=== PATIENT | male | born 1945 | race Caucasian/White ===

== ENCOUNTER 2021-12-04 14:02 | Emergency (ER) | payer MEDICARE, OTHER ==
[~2021-12-04] VITALS: Ht 182 cm; Wt 91.0 kg
[2021-12-04 14:30] LABS: BASOPHILS % (AUTO) 0 % (0-10); EOSINOPHILS # (AUTO) 0.2 10^3/uL (0.0-0.3); EOSINOPHILS % (AUTO) 2 % (0-10); HEMATOCRIT 41 % (40-54); HEMOGLOBIN 13.4 g/dL (13.3-17.7); LYMPHOCYTES # (AUTO) 1.1 10^3/uL (1.0-4.0); LYMPHOCYTES % (AUTO) 11 % (12-44); MEAN CORPUSCULAR HEMOGLOBIN 27 pg (25-34); MEAN CORPUSCULAR HGB CONC 33 g/dL (32-36); MEAN CORPUSCULAR VOLUME 84 fL (80-99); MEAN PLATELET VOLUME 8.9 fL (9.0-12.2); MONOCYTES # (AUTO) 0.7 10^3/uL (0.0-1.0); MONOCYTES % (AUTO) 8 % (0-12); NEUTROPHILS # (AUTO) 7.4 10^3/uL (1.8-7.8); NEUTROPHILS % (AUTO) 78 % (42-75); PLATELET COUNT 290 10^3/uL (130-400); WHITE BLOOD COUNT 9.4 10^3/uL (4.3-11.0)
[2021-12-04] MEDS ORDERED: RX-ALBUTEROL INHALER 8.5 GM HFA (PROAIR) IH STA (14:40)
[2021-12-04] MEDS ORDERED: RT-ALBUTEROL HFA 8.5 GM INHALER IH ONE (14:41)
[2021-12-04 14:42] LABS: ALBUMIN 4.3 GM/DL (3.2-4.5); POTASSIUM 4.3 MMOL/L (3.6-5.0)
[2021-12-04 14:44] LABS: CALCIUM 9.3 MG/DL (8.5-10.1)
[2021-12-04 14:45] LABS: FIBRIN DEGRADATION PRODUCTS 0.82 UG/ML (0.00-0.49); INR 0.9 (0.8-1.4); PROTHROMBIN TIME PATIENT 12.4 SEC (12.2-14.7)
[2021-12-04] MEDS ORDERED: RT-ALBUTEROL/IPRATROPIUM 3 ML (DUONEB) VIAL INH ONE (14:45)
[2021-12-04 14:47] LABS: BILIRUBIN,TOTAL 0.9 MG/DL (0.1-1.0)
[2021-12-04 14:48] LABS: CREATININE SERUM 0.76 MG/DL (0.60-1.30)
[2021-12-04 15:09] LABS: ABG BASE EXCESS 5.5 MMOL/L (-2.5-2.5); ABG OXYGEN SATURATION 71 % (94-100); ABG PCO2 60 MMHG (35-45); ABG PO2 40 MMHG (79-93)
[2021-12-04 15:10] LABS: ABG PH 7.34 (7.37-7.43)
[2021-12-04 15:11] LABS: ALLENS TEST YES-POS; INSPIRED O2 2L; PATIENT TEMP 36.8; VENTILATOR NO
--- NOTE | 2021-12-04 15:11 | ED Respiratory ---
General Chief Complaint: Respiratory Problems Stated Complaint: COVID EXP, SOB, COUGH, WEAKNESS Nursing Triage Note: PT TO RM 10 PER W/C PT CO OF SOA AND COUGH FOR APPROX 3 DAYS, DENIES FEVER. Source: patient Exam Limitations: no limitations History of Present Illness Date Seen by Provider: Dec 04, 2021 Time Seen by Provider: 14:05 Initial Comments Patient to the ER by private conveyance with shortness of air progressively worsening for the past 3 days. No fevers or chills. 3 days ago his granddaughter was diagnosed with COVID-19. He was in close contact with her. He has had a COVID-vaccine and 2 boosters. He has not had COVID-19 that he is aware of. He did not get tested at the time. He does wear oxygen to sleep at night as needed. He has a history of COPD and has had pulmonary function testing at [place]. Dr. Irby is his primary care provider and he sees Dr. Hairston for cardiology at [facility]. He is not having any chest pain. He has noticed a large mass on his left chest in the last week that is mobile, largely nontender and with no drainage or redness. Quit smoking 4 years ago. Quit drinking in 2019. The son is concerned about his father that he has dementia because he will wan bruce around into the kitchen and out again and if the son asks why he is going in and out of the kitchen he will say nothing and then stand there. He will also become agitated sometimes and he will and then go out and cry on the porch. He says the emotional lability has gotten worse since his several years ago. He also notes that the patient is mostly wearing CPAP and oxygen at night to sleep but has not been compliant with that for several years. He noted that when the patient stopped using that he started losing energy having worse depression and worse dementia. He has wanted to communicate this to Dr. Yovanny beck primary care provider but the patient has shot him out of going to primary care provider visits and will not share the content of their discussions. Allergies and Home Medications Allergies Coded Allergies: No Known Drug Allergies (Unverified , 12/04/21) Patient Home Medication List Home Medication List Reviewed: Yes Dexamethasone (Decadron) 6 Mg Tablet, 6 MG PO DAILY Prescribed by: SUHA MOREIRA on 12/04/21 1732 Review of Systems Review of Systems Constitutional: No chills, No fever EENTM: No ear discharge, No ear pain Respiratory: cough (dry); No phlegm; short of breath Cardiovascular: No chest pain, No palpitations Gastrointestinal: No abdominal pain, No nausea, No vomiting Genitourinary: No discharge, No dysuria Musculoskeletal: No back pain, No joint pain Skin: No pruritus, No rash All Other Systems Reviewed Negative Unless Noted: Yes Past Cjhxwnf-Btlsli-Cucpyk Hx Patient Social History Tobacco Use?: No Smoking Status: Former Smoker Substance use?: No Alcohol Use?: No Pt feels they are or have been: No Immunizations Up To Date First/Initial COVID19 Vaccinat: 2020 Second COVID19 Vaccination Alejo: 2019 COVID19 Vaccine Glass Breaker: GRADY Physical Exam Vital Signs - First Documented 12/04/21 14:05 Temp 36.8 Pulse 123 Resp 40 B/P (MAP) 175/92 (119) Pulse Ox 98 O2 Delivery Room Air O2 Flow Rate 3.00 Capillary Refill : Less Than 3 Seconds Height: '" Weight: lbs. oz. kg; 27.00 BMI Method: General Appearance: WD/WN, mild distress Eyes: Bilateral Eye Normal Inspection, Bilateral Eye PERRL, Bilateral Eye EOMI HEENT: normal ENT inspection, TMs normal, pharynx normal Neck: full range of motion, supple, normal inspection Respiratory: chest non-tender, no accessory muscle use, respiratory distress (90% on room air with pursed lip breathing. 25 breaths/min), decreased breath sounds, wheezing, expiration, other (There is a left anterior upper chest wall lateral to the nipple and superior soft rubbery nonfixed mobile mass that feels like adipose tissue. Its not firm and does not have any tight skin or erythema/induration overlying it. There is no central pore or evidence of folliculitis. It is nontender to manipulation and palpation.) Cardiovascular: normal peripheral pulses, no edema, tachycardia Gastrointestinal: non tender, soft Extremities: non-tender, normal inspection, normal capillary refill Neurologic/Psychiatric: alert, normal mood/affect, oriented x 3 Skin: normal color, warm/dry Progress/Results/Core Measures Suspected Sepsis SIRS Temperature: Pulse: 123 Respiratory Rate: 40 Laboratory Tests 12/04/21 14:20: White Blood Count 9.4 Blood Pressure 175 /92 Mean: 119 Laboratory Tests 12/04/21 14:20: Creatinine 0.76, INR Comment 0.9, Platelet Count 290, Total Bilirubin 0.9 Results/Orders Lab Results Laboratory Tests Test 12/04/21 14:08 12/04/21 14:20 12/04/21 15:00 Range/Units Influenza Type A (RT-PCR) Not Detected Not Detecte Influenza Type B (RT-PCR) Not Detected Not Detecte SARS-CoV-2 RNA (RT-PCR) Detected H Not Detecte White Blood Count 9.4 4.3-11.0 10^3/uL Red Blood Count 4.91 4.30-5.52 10^6/uL Hemoglobin 13.4 13.3-17.7 g/dL Hematocrit 41 40-54 % Mean Corpuscular Volume 84 80-99 fL Mean Corpuscular Hemoglobin 27 25-34 pg Mean Corpuscular Hemoglobin Concent 33 32-36 g/dL Red Cell Distribution Width 13.8 10.0-14.5 % Platelet Count 290 130-400 10^3/uL Mean Platelet Volume 8.9 L 9.0-12.2 fL Immature Granulocyte % (Auto) 1 % Neutrophils (%) (Auto) 78 H 42-75 % Lymphocytes (%) (Auto) 11 L 12-44 % Monocytes (%) (Auto) 8 0-12 % Eosinophils (%) (Auto) 2 0-10 % Basophils (%) (Auto) 0 0-10 % Neutrophils # (Auto) 7.4 1.8-7.8 10^3/uL Lymphocytes # (Auto) 1.1 1.0-4.0 10^3/uL Monocytes # (Auto) 0.7 0.0-1.0 10^3/uL Eosinophils # (Auto) 0.2 0.0-0.3 10^3/uL Basophils # (Auto) 0.0 0.0-0.1 10^3/uL Immature Granulocyte # (Auto) 0.1 0.0-0.1 10^3/uL Prothrombin Time 12.4 12.2-14.7 SEC INR Comment 0.9 0.8-1.4 D-Dimer 0.82 H 0.00-0.49 UG/ML Sodium Level 130 L 135-145 MMOL/L Potassium Level 4.3 3.6-5.0 MMOL/L Chloride Level 92 L 98-107 MMOL/L Carbon Dioxide Level 24 21-32 MMOL/L Anion Gap 14 5-14 MMOL/L Blood Urea Nitrogen 6 L 7-18 MG/DL Creatinine 0.76 0.60-1.30 MG/DL Estimat Glomerular Filtration Rate 93 BUN/Creatinine Ratio 8 Glucose Level 284 H 70-105 MG/DL Calcium Level 9.3 8.5-10.1 MG/DL Corrected Calcium 9.1 8.5-10.1 MG/DL Total Bilirubin 0.9 0.1-1.0 MG/DL Aspartate Amino Transf (AST/SGOT) 26 5-34 U/L Alanine Aminotransferase (ALT/SGPT) 48 0-55 U/L Alkaline Phosphatase 92 40-136 U/L C-Reactive Protein High Sensitivity 0.33 0.00-0.50 MG/DL Total Protein 8.0 6.4-8.2 GM/DL Albumin 4.3 3.2-4.5 GM/DL Procalcitonin 0.07 <0.10 NG/ML Blood Gas Puncture Site R RADIAL Blood Gas Patient Temperature 36.8 Arterial Blood pH 7.34 *L 7.37-7.43 Arterial Blood Partial Pressure CO2 60 H 35-45 MMHG Arterial Blood Partial Pressure O2 40 L 79-93 MMHG Arterial Blood HCO3 31 H 23-27 MMOL/L Arterial Blood Total CO2 33.0 H 21.0-31.0 MMOL/L Arterial Blood Oxygen Saturation 71 L 94-100 % Arterial Blood Base Excess 5.5 H -2.5-2.5 MMOL/L Chuck Test YES-POS Blood Gas Ventilator Setting NO Blood Gas Inspired Oxygen 2L My Orders Orders - SUHA MOREIRA 19 Inhouse Test (12/04/21 14:23) Influenza A And B By Pcr (12/04/21 14:23) Arterial Blood Gas (12/04/21 14:23) Cbc With Automated Diff (12/04/21 14:23) Comprehensive Metabolic Panel (12/04/21 14:23) Hs C Reactive Protein (12/04/21 14:23) Procalcitonin (Pct) (12/04/21 14:23) Fibrin Degradation Products (12/04/21 14:23) Protime With Inr (12/04/21 14:23) Chest 1 View, Ap/Pa Only (12/04/21 14:35) Dexamethasone Injection (Decadron Injec (12/04/21 14:45) Albuterol/Ipra Inhalation Soln (Duoneb I (12/04/21 14:45) Rx-Albuterol Inhaler (Rx-Ventolin Hfa In (12/04/21 14:40) Albuterol Inhaler (Albuterol) (12/04/21 14:41) Ct Angio Chest W (12/04/21 15:04) Ed Iv/Invasive Line Start (12/04/21 15:06) Ns Iv 1000 Ml (Sodium Chloride 0.9%) (12/04/21 15:15) Iohexol Injection (Omnipaque 350 Mg/Ml 1 (12/04/21 15:15) Received Contrast (Hold Metformin- Contr (12/04/21 15:15) Ns (Ivpb) (Sodium Chloride 0.9% Ivpb Bag (12/04/21 15:15) Sodium Chloride Flush (Catheter Flush Sy (12/04/21 15:15) Medications Given in ED Current Medications Medications Dose Ordered Sig/Daquan Route Start Time Stop Time Status Last Admin Dose Admin Albuterol Sulfate 8.5 gm STK-MED ONCE IH 12/04/21 14:41 12/04/21 14:43 DC 12/04/21 15:06 8.5 GM Dexamethasone Sodium Phosphate 6 mg ONCE ONCE IV 12/04/21 14:45 12/04/21 14:46 DC 12/04/21 15:19 6 MG Iohexol 100 ml ONCE ONCE IV 12/04/21 15:15 12/04/21 15:16 DC 12/04/21 16:06 77 ML Sodium Chloride 10 ml NEEDED PRN IV 12/04/21 15:15 12/04/21 16:07 10 ML Sodium Chloride 100 ml ONCE ONCE IV 12/04/21 15:15 12/04/21 15:16 DC 12/04/21 16:07 80 ML Vital Signs/I&O 12/04/21 12/04/21 14:05 15:08 Temp 36.8 Pulse 123 Resp 40 B/P (MAP) 175/92 (119) Pulse Ox 98 98 O2 Delivery Room Air Nasal Cannula O2 Flow Rate 3.00 2.00 Capillary Refill : Less Than 3 Seconds Blood Pressure Mean: 119 Progress Note #1: Time: 15:15 Progress Note Suspect he has COVID-19. The ABG demonstrates a venous or mixed blood sample and so we gave him a albuterol inhaler with spacer. Decadron 6 mg IV. 1 L of fluids and will get a CT angiogram to rule out PE as well as try and examine the mass on his chest wall which appears more consistent with a lipoma and the patient has just noticed it in the last couple days. He does not appear to be an abscess has no overlying erythema or central pore. Progress Note #2: Time: 17:27 Progress Note The patient is feeling better after breathing treatment and is no longer complaining of pursed lip breathing or shortness of breath. He has been resting comfortably on 2 L. We did offer him an opportunity to stay in the hospital overnight for his COVID-19 and new oxygen needs but he declined. He does not have oxygen available at home at this time. We did call [employer] [facility] and they will be happy to meet him at the house with an oxygen concentrator which should be fine. Patient is okay with this plan. We have already given him steroids and will continue Decadron 6 mg daily with return precautions. For the mass on his chest we have discussed having a surgeon biopsy and/or resect it. The patient is known to Dr. ENRIQUEZ and would like to follow-up with him. Progress Note #3: Time: 18:02 Progress Note We had a lengthy conversation with the son and patient was encouraged to stay in the hospital but does not necessarily need to and elected strongly not to stay in the hospital. The concerns of the son have been passed on through this note to the primary care provider. We also encouraged the son to look into a medical power of estate planning attorney in case the patient ends up in the hospital in the near future. We also discussed the importance of follow-up with Dr. ENRIQUEZ, general surgery for his chest wall mass. Questions were answered. Information was faxed to the [employer] and they will meet the patient at the house with a oxygen concentrator. Diagnostic Imaging Diagonstic Imaging: Xray Plain Films/CT/US/NM/MRI: chest Comments [facility] [place]. [place], [place] NAME: ROMERO QUIGLEYVIN [facility] REC#: [id number] PT STATUS: REG ER : 1945 PHYSICIAN: SUHA MOREIRA MD ADMIT DATE: 12/04/21/ER Draft Date of Exam:12/04/21 CHEST 1 VIEW, AP/PA ONLY INDICATION: Shortness of air, cough, Covid positive. TECHNIQUE: Single view chest 3:51 PM. CORRELATION STUDY: 06/16/2013 FINDINGS: The heart size, mediastinal configuration and pulmonary vascularity are within normal limits. Lung barrett slightly hyperinflated with hyperlucency at the apices. No consolidating infiltrate. IMPRESSION: 1. Chronic appearing changes of the lung parenchyma. Negative for acute cardiopulmonary abnormality. Dictated on workstation # [id number] Dict: 12/04/21 1606 Trans: 12/04/21 1607 DO [id number] Interpreted by: CHANDLER MO DO Electronically signed by: Reviewed: Reviewed by Me Diagonstic Imaging: CT Plain Films/CT/US/NM/MRI: chest (angio) Comments [facility] [place] [place] NAME: ANNABELLE QUIGLEY [facility] REC#: [id number] PT STATUS: REG ER : 1945 PHYSICIAN: SUHA MOREIRA MD ADMIT DATE: 12/04/21/ER Signed Date of Exam:12/04/21 CT ANGIO CHEST W PROCEDURE: CT angiography of the chest with contrast. TECHNIQUE: Multiple contiguous axial images were obtained through the chest after uneventful bolus administration of intravenous contrast. 3D reconstructed CTA MIP acquisitions were also performed. Auto Exposure Controls were utilized during the CT exam to meet ALARA standards for radiation dose reduction. INDICATION: 76-year-old male, shortness of air, COVID positive. CORRELATION STUDY: None FINDINGS: Only partially visualized, there is a large at least 6 cm mass over the left lateral chest/breast. A few prominent left axillary lymph nodes are also present. There is no large pulmonary embolism. There does appear to be asymmetric contrast density particularly in the left lower lobe and upper lobe peripheral branches. While somewhat indeterminate, is suspicious for smaller peripheral emboli. Heart size is within normal limits and no disproportionate right heart strain. No pericardial effusion. Thoracic aorta with mild calcification, nonaneurysmal. No evidence for dissection. No pathologically enlarged mediastinal lymph nodes. Mild soft tissue prominence in the left hilum, and to lesser degree, the right hilum. Lung barrett demonstrate no significant infiltrate. No pleural effusion. Visualized portion of the upper abdomen demonstrates probable hepatic steatosis. Indeterminate 3.7 x 2.5 cm right adrenal gland mass. Fairly low-density Hounsfield unit at 15.7. IMPRESSION: 1. No large central pulmonary embolism. However, there is suggested asymmetric contrast opacification of the more peripheral left pulmonary artery branches. While somewhat indeterminate, is suspect for potential smaller peripheral emboli. No disproportionate right heart strain. 2. No significant pulmonary infiltrate to suggest active COVID pneumonia. 3. Partially visualized left breast/chest mass. A few mildly prominent left axillary lymph nodes, as well. The possibility of neoplasm is definitely in the differential and should be excluded. 4. There is right adrenal gland mass, is of lower density and may very well reflect an adenoma, but is indeterminate. Dictated by: Dictated on workstation # [id number] Dict: 12/04/21 1608 Trans: 12/04/21 1705 [facility] [id number] Interpreted by: CHANDLER MO DO Electronically signed by: CHANDLER MO DO 12/04/21 1705 Reviewed: Reviewed by Me Departure Impression Primary Impression: COVID-19 Additional Impressions: Acute and chronic respiratory failure with hypoxia Chest wall mass Disposition: 01 HOME, SELF-CARE Condition: Stable Departure-Patient Inst. Decision time for Depature: 17:29 Referrals: ELDER ENRIQUEZ MD, DANIEL J MD (PCP/Family) Primary Care Physician Patient Instructions: COVID-19 (DC) Add. Discharge Instructions: Decadron 6 mg daily for the next 9 days to help with your COPD and COVID-19. Oxygen 2 L to 6 L by nasal cannula as necessary to maintain oxygen saturations above 90% while at rest. Return to the ER promptly if your oxygen saturations did not maintain above 90% while at rest on oxygen. Follow-up with Dr. ENRIQUEZ by calling for an appointment to have the mass on your chest wall biopsied or resected as appropriate. All discharge instructions reviewed with patient and/or family. Voiced understanding. Scripts Dexamethasone (Decadron) 6 Mg Tablet 6 MG PO DAILY for 9 Days, #9 TAB 0 Refills Prov: SUHA MOREIRA 12/04/21 Copy Copies To 1: ELDER ENRIQUEZ MD; STEPHANIE IRBY MD, TITUS J Dec 04, 2021 15:11
[2021-12-04] MEDS ORDERED: CATHETER FLUSH 10 ML SYR IV PRN (15:15)
[2021-12-04] MEDS ORDERED: IOHEXOL 350 MG/ML 100 ML (OMNIPAQUE 350) VIAL IV ONE (15:15)
[2021-12-04] MEDS ORDERED: NS 100 ML (IVPB) BAG IV ONE (15:15)
[2021-12-04] MEDS ORDERED: HOLD METFORMIN - RECEIVED CONTRAST 20 ML VIAL IV SCH (15:15)
[2021-12-04] MEDS ORDERED: NS IV 1000 ML 1,000 ML IV SCH (15:15)
--- NOTE | 2021-12-04 16:07 | Diagnostic Imaging Report ---
INDICATION: Shortness of air, cough, Covid positive. TECHNIQUE: Single view chest 3:51 PM. CORRELATION STUDY: 06/16/2013 FINDINGS: The heart size, mediastinal configuration and pulmonary vascularity are within normal limits. Lung barrett slightly hyperinflated with hyperlucency at the apices. No consolidating infiltrate. IMPRESSION: 1. Chronic appearing changes of the lung parenchyma. Negative for acute cardiopulmonary abnormality. Dictated by: Dictated on workstation # [id number]
--- NOTE | 2021-12-04 16:35 | Diagnostic Imaging Report ---
PROCEDURE: CT angiography of the chest with contrast. TECHNIQUE: Multiple contiguous axial images were obtained through the chest after uneventful bolus administration of intravenous contrast. 3D reconstructed CTA MIP acquisitions were also performed. Auto Exposure Controls were utilized during the CT exam to meet ALARA standards for radiation dose reduction. INDICATION: 76-year-old male, shortness of air, COVID positive. CORRELATION STUDY: None FINDINGS: Only partially visualized, there is a large at least 6 cm mass over the left lateral chest/breast. A few prominent left axillary lymph nodes are also present. There is no large pulmonary embolism. There does appear to be asymmetric contrast density particularly in the left lower lobe and upper lobe peripheral branches. While somewhat indeterminate, is suspicious for smaller peripheral emboli. Heart size is within normal limits and no disproportionate right heart strain. No pericardial effusion. Thoracic aorta with mild calcification, nonaneurysmal. No evidence for dissection. No pathologically enlarged mediastinal lymph nodes. Mild soft tissue prominence in the left hilum, and to lesser degree, the right hilum. Lung barrett demonstrate no significant infiltrate. No pleural effusion. Visualized portion of the upper abdomen demonstrates probable hepatic steatosis. Indeterminate 3.7 x 2.5 cm right adrenal gland mass. Fairly low-density Hounsfield unit at 15.7. IMPRESSION: 1. No large central pulmonary embolism. However, there is suggested asymmetric contrast opacification of the more peripheral left pulmonary artery branches. While somewhat indeterminate, is suspect for potential smaller peripheral emboli. No disproportionate right heart strain. 2. No significant pulmonary infiltrate to suggest active COVID pneumonia. 3. Partially visualized left breast/chest mass. A few mildly prominent left axillary lymph nodes, as well. The possibility of neoplasm is definitely in the differential and should be excluded. 4. There is right adrenal gland mass, is of lower density and may very well reflect an adenoma, but is indeterminate. Dictated by: Dictated on workstation # [id number]
[2021-12-04] MEDS ORDERED: DEXA6TAB6 PO (17:32)
[2021-12-04 18:15] VITALS: BP 147/67
== END 2021-12-04 18:15 | disposition home or self-care (01) ==
LOC: EDUNIT# 14:02 → ER 14:05
DX: U07.1 COVID-19 (principal); J96.11 Chronic respiratory failure with hypoxia; R22.2 Localized swelling, mass and lump, trunk; Z87.891 Personal history of nicotine dependence
CPT/HCPCS: 36415; 71045; 71275; 80053; 82805; 84145; 85025; 85379; 85610; 86141; 87636; 94640

== ENCOUNTER → 2022-01-08 | Outpatient (CLI) | payer MEDICARE, OTHER ==
[~2022-01-08] MED LIST: DEXA6TAB6 PO
--- NOTE | 2022-01-08 14:47 | Diagnostic Imaging Report ---
INDICATION: Left breast mass. COMPARISON: No prior studies are available for comparison. TECHNIQUE: Unilateral left 2D and 3D diagnostic mammography was performed. A BB marker was placed at the area of palpable abnormality in the upper outer left breast. FINDINGS: There is a large circumscribed mass in the upper outer left breast corresponding to the palpable abnormality. No other breast masses are seen. No malignant-appearing microcalcifications are identified. IMPRESSION: Large mass in the upper outer left breast at the area of palpable abnormality. Further evaluation with ultrasound is recommended and will be performed today. ACR BI-RADS Category 0: Incomplete. (Needs additional imaging evaluation). Result letter will be mailed to the patient. Note: At least 10% of breast cancer is not imaged by mammography. Dictated by: Dictated on workstation # [id number]
--- NOTE | 2022-01-08 15:31 | Diagnostic Imaging Report ---
INDICATION: Palpable mass in the left breast. COMPARISON: Correlation is made with the diagnostic mammogram from earlier this same day. FINDINGS: Sonographic interrogation of the area of palpable abnormality in the upper left breast was performed. There is a large solid mass at the 1 o'clock location 10 cm from the nipple measuring 6.7 x 5.5 x 6.8 cm. This does show internal vascularity. No other masses are seen. There is a fatty lymph node in the left axilla measuring 1.8 x 0.7 x 1.6 cm. IMPRESSION: Large solid mass at the 1 o'clock location of the left breast 10 cm from the nipple accounting for the palpable and mammographic abnormality. Tissue sampling is recommended. This would be amenable to ultrasound-guided core biopsy. ACR BI-RADS Category 4: Suspicious abnormality. Dictated by: Dictated on workstation # [id number]
== END ==
LOC: RAD 13:29
PROVIDERS: ATTEND Surgery
DX: N63.21 Unspecified lump in the left breast, upper outer quadrant (principal)
CPT/HCPCS: 76642; 77065; G0279

== ENCOUNTER → 2022-01-11 | Outpatient (CLI) | payer MEDICARE, OTHER ==
[~2022-01-11] VITALS: Ht 182.9 cm; Wt 90.9 kg
[2022-01-11] MEDS: LIDOCAINE 1% INJ 50 ML (XYLOCAINE) VIAL IJ ONE (14:34)
--- NOTE | 2022-01-11 16:24 | Diagnostic Imaging Report ---
INDICATION: Left breast mass. The patient presents for ultrasound-guided core biopsy. The patient was brought to the sonographic suite, placed on the table in the supine position. Ultrasound imaging of the left breast was performed to evaluate appropriate entry site. The left breast was then prepped and draped in the usual sterile fashion. A small amount of 1% lidocaine was utilized for local anesthesia. A total of 4 core biopsies were made of the large solid mass at the 1:00 location of the left breast utilizing a 14-gauge Achieve needle. Hemostasis was obtained. The patient tolerated the procedure well and left the department in stable condition. IMPRESSION: Successful ultrasound-guided core biopsy of the large solid mass in the upper outer left breast. Pathology results are currently pending. Dictated by: Dictated on workstation # [id number]
== END ==
LOC: RAD 14:30
PROVIDERS: ATTEND Surgery
DX: N63.23 Unspecified lump in the left breast, lower outer quadrant (principal)
CPT/HCPCS: 19083

== ENCOUNTER → 2022-02-02 | Outpatient (CLI) | payer MEDICARE, OTHER ==
[~2022-02-02] MED LIST changes: +CATHETER FLUSH 10 ML SYR IV PRN; +HOLD METFORMIN - RECEIVED CONTRAST 20 ML VIAL IV SCH; +IOHEXOL 350 MG/ML 100 ML (OMNIPAQUE 350) VIAL IV ONE; +NS 100 ML (IVPB) BAG IV ONE
[2022-02-02 09:05] LABS: HEMATOCRIT 35 % (40-54); HEMOGLOBIN 11.5 g/dL (13.3-17.7); MEAN CORPUSCULAR HEMOGLOBIN 28 pg (25-34); MEAN CORPUSCULAR HGB CONC 33 g/dL (32-36); MEAN CORPUSCULAR VOLUME 84 fL (80-99); MEAN PLATELET VOLUME 8.4 fL (9.0-12.2); PLATELET COUNT 455 10^3/uL (130-400); WHITE BLOOD COUNT 11.6 10^3/uL (4.3-11.0)
[2022-02-02 09:38] LABS: ALBUMIN 4.2 GM/DL (3.2-4.5); BILIRUBIN,TOTAL 0.9 MG/DL (0.1-1.0); CALCIUM 9.4 MG/DL (8.5-10.1); CREATININE SERUM 0.91 MG/DL (0.60-1.30); POTASSIUM 4.6 MMOL/L (3.6-5.0)
--- NOTE | 2022-02-02 10:41 | Diagnostic Imaging Report ---
PROCEDURE: CT head with and without contrast. TECHNIQUE: Multiple contiguous axial images were obtained through the brain before and after the administration of intravenous contrast. Auto Exposure Controls were utilized during the CT exam to meet ALARA standards for radiation dose reduction. INDICATION: Metastatic melanoma. COMPARISON: None. FINDINGS: The ventricles and cortical sulci are diffusely prominent, compatible with age-related volume loss. Postcontrast images show no abnormal areas of enhancement. There is no midline shift or mass-effect. No acute intra-axial hemorrhage is seen. There are no abnormal areas of increased or decreased density to suggest acute hemorrhage or edema. No extra-axial masses or collections are present. The bony calvarium is intact. The visualized paranasal sinuses are unremarkable. The mastoid air cells are clear. IMPRESSION: 1. No acute intracranial abnormality. No CT evidence of mass, acute infarct or intracranial hemorrhage. Dictated by: Dictated on workstation # [id number]
--- NOTE | 2022-02-02 13:46 | Diagnostic Imaging Report ---
CT [id number] W/ABD W WO INDICATION: Metastatic melanoma of the left breast COMPARISON: CT chest from 12/04/2021 TECHNIQUE: CT imaging of the neck, chest, abdomen and pelvis was performed. Automatic exposure controls were utilized to keep dose as low as reasonably achievable. FINDINGS: NECK: The airway is widely patent. The true and false vocal folds are normal in appearance. Thyroid, submandibular and parotid glands are normal, as well. No abnormal thickening of the epiglottis. The soft palate is unremarkable. No mass at the base of the tongue. Parapharyngeal fat spaces are normal. No retropharyngeal fluid collection. No cervical lymphadenopathy. No lytic or blastic skeletal lesion within the cervical spine, mandible or skull base. CHEST: There is now an air and fluid-filled collection in the left upper chest wall subcutaneous fat at the site of previously noted mass. This collection measures 6.2 x 5.2 cm and has rim enhancement. There are 2 left axillary lymph nodes that have mildly increased in size posterior to this mass. These each measure approximately 1 cm in size. No additional lymphadenopathy within the left chest wall. No right axillary lymphadenopathy. No mediastinal or hilar lymphadenopathy. The heart is normal in size and without pericardial effusion. Severe calcification of the aortic valve leaflets. Normal caliber thoracic aorta. No suspicious pulmonary nodules. No worrisome focal osseous lesions. ABDOMEN AND PELVIS: No free intraperitoneal air or fluid. There is diffuse hypoattenuation of the liver raising the possibility of hepatic steatosis. No focal hepatic lesion. Gallbladder, spleen and pancreas are normal. Stable low-attenuation 3.6 x 2.0 cm nodule that remains indeterminate, but most likely adenoma. Left adrenal gland is normal. No solid renal mass or obstructive uropathy. Urinary bladder is normal. Prostate is not enlarged. Colonic diverticulosis without diverticulitis. Severe atherosclerotic plaquing throughout the aorta. No worrisome focal osseous lesions. IMPRESSION: 1. There is now an air and fluid-filled collection in the left chest wall at the site of previously noted mass. This may represent postoperative seroma. The sterility cannot be determined with imaging and if there is concern for infection, aspiration would be suggested. 2. Two left axillary lymph nodes posterior to the mass, mildly increased in size and are most likely reactive in nature due to recent surgical changes. Less likely these could represent regional metastasis. 3. Stable right adrenal mass is most likely adenoma. Advise either an imaging workup with either CT or MRI abdomen, either of which would require pre and postcontrast imaging with the adrenal protocol. 4. Otherwise, there are no features of metastatic disease in the neck, chest, abdomen or pelvis. 5. Aortic valve calcifications are frequently seen in the setting of aortic stenosis. Dictated by: Dictated on workstation # [id number]
== END ==
LOC: RAD 08:51
PROVIDERS: ATTEND Surgery
DX: C50.922 Malignant neoplasm of unspecified site of left male breast (principal); E27.9 Disorder of adrenal gland, unspecified; I70.0 Atherosclerosis of aorta; Z98.890 Other specified postprocedural states
CPT/HCPCS: 36415; 70470; 70491; 71260; 74178; 80053; 85027

== ENCOUNTER 2022-02-06 12:08 | Outpatient (RCR) | payer MEDICARE, OTHER ==
[~2022-02-06 12:08] MED LIST changes: -CATHETER FLUSH 10 ML SYR IV PRN; -HOLD METFORMIN - RECEIVED CONTRAST 20 ML VIAL IV SCH; -IOHEXOL 350 MG/ML 100 ML (OMNIPAQUE 350) VIAL IV ONE; -NS 100 ML (IVPB) BAG IV ONE
== END 2022-03-02 | disposition home or self-care (01) ==
LOC: ONC 12:08
PROVIDERS: ATTEND Internal Medicine Hematology & Oncology
DX: C76.1 Malignant neoplasm of thorax (principal)
CPT/HCPCS: 99204

== ENCOUNTER → 2022-03-05 | Outpatient (CLI) | payer MEDICARE, OTHER ==
--- NOTE | 2022-03-06 14:24 | Diagnostic Imaging Report ---
INDICATION: Metastatic melanoma on the left upper chest, initial staging. TECHNIQUE: Serum blood glucose level at the time of injection was 175 mg/dL. Patient was administered 14.6 mCi F-18 FDG intravenously, and a whole body PET imaging was performed. In addition, noncontrast CT was performed for attenuation correction and anatomic correlation. COMPARISON: Correlation is made with recent CT from 02/02/2022. FINDINGS: There is symmetric activity throughout the brain. Soft tissues of the neck are unremarkable. A 6.8 cm soft tissue mass in the left chest is again noted and was recently biopsied. This shows SUV max of approximately 17. Just cephalad to this level and near the chest wall is a 2.1 x 1.4 cm lymph node with an SUV max of 5.5, likely metastatic. No mediastinal or hilar hypermetabolic foci are identified. No pulmonary parenchymal hypermetabolic foci are seen. The abdomen and pelvis demonstrate physiologic activity throughout the GI and tracts. No suspicious metabolic foci are seen. There is a hypermetabolic focus noted in the distal left femur with an SUV max of 12.7, concerning for a metastatic lesion. No other hypermetabolic foci in the lower extremities are seen. IMPRESSION: 1. Hypermetabolic soft tissue mass on the left chest wall corresponding to patient's known recently diagnosed melanoma. There does appear to be an adjacent metastatic lymph node. In addition, there appears to be a metastatic lesion in the distal left femur. Dictated by: Dictated on workstation # [id number]
== END ==
LOC: RAD 02-26 12:45
PROVIDERS: ATTEND Internal Medicine Hematology & Oncology
DX: C76.1 Malignant neoplasm of thorax (principal)
CPT/HCPCS: 78816; A9552

== ENCOUNTER 2022-03-15 09:52 | Outpatient (CLI) | payer MEDICARE, OTHER ==
[~2022-03-15] VITALS: Ht 182.8 cm; Wt 88.3 kg
[~2022-03-15 09:52] MED LIST changes: -ASPI-999 PO; -ATOR20TA49 PO; -GADOTERATE 0.5 MMOL/ML (CLARISCAN) 20 ML VIAL IV ONE; -LISI10TA25 PO; -METF-399 PO; -TMSL.4C PO
[2022-03-15] MEDS ORDERED: ATOR20TA49 PO (10:32)
[2022-03-15] MEDS ORDERED: LISI10TA25 PO (10:32)
[2022-03-15] MEDS ORDERED: ASPI-999 PO (10:32)
[2022-03-15] MEDS ORDERED: METF-399 PO (10:32)
[2022-03-15] MEDS ORDERED: TMSL.4C PO (10:32)
== END 2022-03-15 11:03 | disposition home or self-care (01) ==
LOC: PREOP 09:52
PROVIDERS: ATTEND Surgery
DX: Z01.818 Encounter for other preprocedural examination (principal)

== ENCOUNTER → 2022-03-15 | Outpatient (CLI) | payer MEDICARE, OTHER ==
[~2022-03-15] MED LIST changes: +ASPI-999 PO; +ATOR20TA49 PO; +GADOTERATE 0.5 MMOL/ML (CLARISCAN) 20 ML VIAL IV ONE; +LISI10TA25 PO; +METF-399 PO; +TMSL.4C PO
--- NOTE | 2022-03-15 15:13 | Diagnostic Imaging Report ---
PROCEDURE: MR imaging of the brain with and without contrast. TECHNIQUE: Multiplanar, multisequence MR imaging of the brain was performed with and without contrast. INDICATION: Malignant melanoma of the chest wall. Clinical concern for intracranial metastases. COMPARISON: CT head without and with IV contrast 02/02/2022. FINDINGS: Mild nonspecific T2 hyperintensities in the supratentorial white matter. No abnormal intracranial enhancement allowing for the motion artifact. No restricted water diffusion. No hemosiderin deposition or evidence of intracranial hemorrhage. Normal morphology including the major midline structures, sella, posterior fossa, and cerebellopontine angle. Normal intracranial flow voids. No hydrocephalus or extra-axial fluid collections. The orbits are negative. Paranasal sinuses and mastoids are clear. Normal bone marrow signal. IMPRESSION: Age-appropriate MRI of the brain. No acute findings. No evidence of acute infarction or hemorrhage. No evidence of an intracranial mass. Dictated by: Dictated on workstation # [id number]
== END ==
LOC: RAD 13:17
PROVIDERS: ATTEND Internal Medicine Hematology & Oncology
DX: C76.1 Malignant neoplasm of thorax (principal)
CPT/HCPCS: 70553

== ENCOUNTER 2022-03-16 10:20 | Day surgery (SDC) | payer MEDICARE, OTHER ==
[~2022-03-16] VITALS: Ht 182.8 cm; Wt 88.3 kg
[2022-03-16] VITALS (7 sets, daily range): BP systolic 130–160; BP diastolic 51–83
[~2022-03-16 10:20] MED LIST changes: +ASPI-999 PO; +ATOR20TA49 PO; +LISI10TA25 PO; +METF-399 PO; +TMSL.4C PO
[2022-03-16] MEDS ORDERED: 0.9% SODIUM CHLORIDE PF INJ 20 ML VIAL ONE ×2 (10:26→11:48)
[2022-03-16] MEDS ORDERED: HEParin (CENTRAL IV FLUSH) 500 UNIT/5 ML SYR ONE (10:27)
[2022-03-16] MEDS ORDERED: fentaNYL INJ 100 MCG/2 ML AMP ONE (10:38)
[2022-03-16] MEDS ORDERED: PROPOFOL INJECTION 50 ML IV ONE (10:38)
[2022-03-16] MEDS ORDERED: LIDOCAINE/EPI 2% 1:200,00 (XYLOCAINE) 10 ML VIAL ONE (10:43)
[2022-03-16] MEDS ORDERED: LACTATED RINGERS 1,000 ML IV PRN (10:45)
[2022-03-16] MEDS ORDERED: ceFAZolin INJECTION 2,000 MG in NS (IVPB) 50 ML IV ONE (10:45)
--- NOTE | 2022-03-16 12:06 | Anesthesia-General Post-Op ---
MAC Patient Condition Mental Status/LOC: Same as Preop Cardiovascular: Satisfactory Nausea/Vomiting: Absent Respiratory: Satisfactory Pain: Controlled Complications: Absent Post Op Complications Complications None Follow Up Care/Instructions Patient Instructions None needed. Anesthesiology Discharge Order Discharge Order Patient is doing well, no complaints, stable vital signs, no apparent adverse anesthesia problems. No complications reported per nursing. KUN RODGERS CRNA Mar 16, 2022 12:06
[2022-03-16] MEDS ORDERED: HYDROmorphone 2 MG/ML VIAL (DILAUDID) IV ONE (12:15)
[2022-03-16] MEDS ORDERED: ONDANSETRON 4 MG/2 ML (SDV) Z0FRAN IVP PRN (12:15)
--- NOTE | 2022-03-16 12:28 | Diagnostic Imaging Report ---
INDICATION: POST OP PORT PLACEMENT. TECHNIQUE: Single view chest 12:04 PM. CORRELATION STUDY: 12/04/2021 FINDINGS: Heart size enlarged and may be accentuated by patient positioning. Vasculature overall within normal limits. Right IJ Enmkwv-o-Iqrn catheter, partially visualized tip at the high right atrium has been placed since prior. Left diaphragm partially obscured may be a small amount of fluid. No definitive infiltrate. Lung barrett are otherwise hyperinflated. IMPRESSION: 1. Cardiac enlargement may be accentuated by technique. Probable small left pleural effusion. Dictated by: Dictated on workstation # [id number]
--- NOTE | 2022-03-16 12:33 | Diagnostic Imaging Report ---
INDICATION: Internal jugular line placement. COMPARISON: None Total fluoroscopy time: 10 seconds Total number fluoroscopic images saved: 1 FINDINGS: Single intraoperative image intensifier view of the chest was obtained during Port-A-Cath placement. Image provided shows central tip of the catheter extending into the cavoatrial junction. Evaluation for pneumothorax is suboptimal given fluoroscopic modality. IMPRESSION: 1. Fluoroscopic guidance provided intraoperatively as above. Dictated by: Dictated on workstation # [id number]
--- NOTE | 2022-03-16 13:15 | Progress Note-Pre Operative ---
Pre-Operative Progress Note Date of Available H&P: Mar 16, 2022 Date H&P Reviewed: Mar 16, 2022 Time H&P Reviewed: 10:30 History & Physical: No changes noted Pre-Operative Diagnosis: metastatic melanoma ELDER ENRIQUEZ MD Mar 16, 2022 13:15
--- NOTE | 2022-03-16 13:16 | Progress Note-Post Operative ---
Post-Operative Progess Note Surgeon (s)/Co Teacher (s) Surgeon ELDER ENRIQUEZ MD Co Teacher: none Pre-Operative Diagnosis metastatic melanoma Post-Operative Diagnosis same Procedure & Operative Findings Date of Procedure 03/16/22 Procedure Performed/Findings placement right internal jugular groshong implantable catheter. Anesthesia Type mac Estimated Blood Loss Estimated blood loss (mL): minimal Specimens/Packing Specimens Removed none ELDER ENRIQUEZ MD Mar 16, 2022 13:16
--- NOTE | 2022-03-16 16:55 | OPERATIVE REPORT ---
DATE OF SERVICE: 03/16/2022 ATTENDING PRIMARY CARE PHYSICIAN: Raghav Owusu MD. PREOPERATIVE DIAGNOSIS: Metastatic melanoma. POSTOPERATIVE DIAGNOSIS: Metastatic melanoma. PROCEDURE PERFORMED: Placement of right internal jugular Groshong implantable catheter under fluoroscopy. SURGEON: Elder Enriquez MD. ANESTHESIA: Monitored anesthesia care with local. ESTIMATED BLOOD LOSS: Minimal. FINDINGS: Catheter tip at superior vena caval - right atrial junction. DISPOSITION: The patient tolerated the procedure well. INDICATIONS FOR PROCEDURE: The patient is a 76-year-old male, who developed a lesion of the left upper chest wall, which he states grew significantly larger in size over a short period of time. This was examined in the office, well circumscribed, large as well as hard in consistency. This was biopsied in the office and came back consistent with a metastatic melanoma. He then underwent further evaluation with a PET scan, which did show hypermetabolic activities of the left axillary lymph nodes; however, no other lesions identified. The patient did opt for immunotherapy and will require a central venous catheter for therapeutic medications as well as frequent blood draws. DESCRIPTION OF PROCEDURE: The patient was brought to the operating room and laid supine on the table. After adequate IV pain and sedative medications and monitored anesthesia care, the right chest and neck were prepped and draped in standard surgical fashion. Multiple attempts were made to access the left subclavian vein; however, it appeared that we had arterial blood. We then decided to proceed with the internal jugular venous approach, where the neck was anesthetized using 1% lidocaine with epinephrine. The right internal jugular vein was then cannulated with drawing of venous blood and the guidewire was then inserted without any resistance under fluoroscopy. The cannulating needle was removed and a skin incision was made using a 15 blade. The guidewire and dilator were then removed and the catheter was placed through the trocar under direct visualization until the catheter tip at superior vena caval - right atrial junction and the sheath removed. The subcutaneous reservoir was then created using a #15 blade as well as creating a plane between the subcutaneous fat and anterior pectoralis fascia using blunt dissection as well as electrocautery with visualization of good hemostasis. The catheter was then placed onto the tunneler and placed to this reservoir and the inner wire within the catheter was removed, the catheter cut down to size and port placed onto the catheter. The port was accessed, drawing of venous blood and heparinized saline pushed in without any resistance. The port was placed into the reservoir and sutured to the anterior pectoralis fascia using interrupted 3-0 Vicryl sutures. The skin was then reapproximated with 3-0 Vicryl interrupted sutures and skin was closed using 4-0 Monocryl running subcuticular suture. Wound was then cleaned and covered with Dermabond. The patient tolerated the procedure well. We will get a post procedure chest x-ray once confirmation of placement of the port may be accessed and used any time. Job ID: [id number] DocumentID: [id number] Dictated Date: 03/16/2022 12:04:47 Aids Counselor Date: 03/16/2022 16:54:57 Dictated By: ELDER ENRIQUEZ MD
== END 2022-03-16 13:07 ==
LOC: SDC 10:20
PROVIDERS: ATTEND Surgery
DX: C43.59 Malignant melanoma of other part of trunk (principal); Z87.891 Personal history of nicotine dependence
CPT/HCPCS: 36561; 71045; 76000; 82947; 87081; C1788

== ENCOUNTER 2022-03-30 11:18 | Outpatient (RCR) | payer MEDICARE, OTHER ==
[2022-03-13 12:29] LABS: BASOPHILS % (AUTO) 0 % (0-10); EOSINOPHILS # (AUTO) 0.2 10^3/uL (0.0-0.3); EOSINOPHILS % (AUTO) 2 % (0-10); HEMATOCRIT 33 % (40-54); HEMOGLOBIN 10.1 g/dL (13.3-17.7); LYMPHOCYTES # (AUTO) 2.1 10^3/uL (1.0-4.0); LYMPHOCYTES % (AUTO) 19 % (12-44); MEAN CORPUSCULAR HEMOGLOBIN 26 pg (25-34); MEAN CORPUSCULAR HGB CONC 31 g/dL (32-36); MEAN CORPUSCULAR VOLUME 84 fL (80-99); MEAN PLATELET VOLUME 8.5 fL (9.0-12.2); MONOCYTES # (AUTO) 0.8 10^3/uL (0.0-1.0); MONOCYTES % (AUTO) 8 % (0-12); NEUTROPHILS # (AUTO) 7.9 10^3/uL (1.8-7.8); NEUTROPHILS % (AUTO) 71 % (42-75); PLATELET COUNT 398 10^3/uL (130-400)
[2022-03-13 12:57] LABS: ALBUMIN 3.9 GM/DL (3.2-4.5); BILIRUBIN,TOTAL 0.9 MG/DL (0.1-1.0); CALCIUM 9.5 MG/DL (8.5-10.1); CREATININE SERUM 0.7 MG/DL (0.60-1.30); POTASSIUM 4.6 MMOL/L (3.6-5.0); TOTAL PROTEIN 7.6 GM/DL (6.4-8.2)
[2022-03-26 10:36] LABS: BASOPHILS % (AUTO) 0 % (0-10); EOSINOPHILS # (AUTO) 0.2 10^3/uL (0.0-0.3); EOSINOPHILS % (AUTO) 1 % (0-10); HEMATOCRIT 28 % (40-54); HEMOGLOBIN 8.7 g/dL (13.3-17.7); LYMPHOCYTES # (AUTO) 1.6 10^3/uL (1.0-4.0); LYMPHOCYTES % (AUTO) 14 % (12-44); MEAN CORPUSCULAR HEMOGLOBIN 25 pg (25-34); MEAN CORPUSCULAR HGB CONC 31 g/dL (32-36); MEAN CORPUSCULAR VOLUME 81 fL (80-99); MEAN PLATELET VOLUME 8.6 fL (9.0-12.2); MONOCYTES % (AUTO) 9 % (0-12); NEUTROPHILS # (AUTO) 8.4 10^3/uL (1.8-7.8); NEUTROPHILS % (AUTO) 75 % (42-75); PLATELET COUNT 397 10^3/uL (130-400); WHITE BLOOD COUNT 11.2 10^3/uL (4.3-11.0)
[2022-03-26 10:43] LABS: ALBUMIN 3.9 GM/DL (3.2-4.5); POTASSIUM 4.8 MMOL/L (3.6-5.0)
[2022-03-26 10:45] LABS: TOTAL PROTEIN 7.6 GM/DL (6.4-8.2)
[2022-03-26 10:49] LABS: CREATININE SERUM 0.78 MG/DL (0.60-1.30)
--- NOTE | 2022-03-26 11:35 | Diagnostic Imaging Report ---
INDICATION: Port-A-Cath not working. TIME OF EXAM: 11:04 a.m. COMPARISON: Correlation is made with prior chest from 03/16/2022. FINDINGS: Right chest wall port has tip overlying the SVC. There is slight looping in the port likely near the entry site of the low internal jugular. No definite interruption of the tubing is seen. Lungs show some hyperinflation consistent with COPD. No infiltrates are seen. There is no effusion or pneumothorax. IMPRESSION: There is some slight acute loop near the entry site of the low internal jugular vein of the Port-A-Cath, but no definite interruption of the tubing or fracture is seen. Dictated by: Dictated on workstation # [id number]
[~2022-03-30] VITALS: Ht 182.9 cm; Wt 88.0 kg
[~2022-03-30 11:18] MED LIST changes: +HEParin (CENTRAL IV FLUSH) 500 UNIT/5 ML SYR IV PRN; +NS (IVPB) 250 ML IV SCH; +PEMBROLIZUMAB 200 MG in NS (IVPB) 50 ML IV SCH
== END 2022-04-02 | disposition home or self-care (01) ==
LOC: ONC 11:18
PROVIDERS: ATTEND Internal Medicine Hematology & Oncology
DX: Z51.11 Encounter for antineoplastic chemotherapy (principal); C76.1 Malignant neoplasm of thorax; Z79.899 Other long term (current) drug therapy
CPT/HCPCS: 80053; 83615; 84443; 85025; G0463; 36415; 36591; 71045; 83935; 84300; 96413; 99213

== ENCOUNTER 2022-04-23 08:12 | Outpatient (RCR) | payer MEDICARE, OTHER ==
[2022-04-18 10:26] LABS: BASOPHILS # (AUTO) 0.1 10^3/uL (0.0-0.1); BASOPHILS % (AUTO) 1 % (0-10); EOSINOPHILS # (AUTO) 0.2 10^3/uL (0.0-0.3); EOSINOPHILS % (AUTO) 1 % (0-10); HEMATOCRIT 26 % (40-54); HEMOGLOBIN 7.4 g/dL (13.3-17.7); LYMPHOCYTES # (AUTO) 1.7 10^3/uL (1.0-4.0); LYMPHOCYTES % (AUTO) 13 % (12-44); MEAN CORPUSCULAR HEMOGLOBIN 23 pg (25-34); MEAN CORPUSCULAR HGB CONC 29 g/dL (32-36); MEAN CORPUSCULAR VOLUME 79 fL (80-99); MEAN PLATELET VOLUME 8.9 fL (9.0-12.2); MONOCYTES % (AUTO) 7 % (0-12); NEUTROPHILS # (AUTO) 10.2 10^3/uL (1.8-7.8); NEUTROPHILS % (AUTO) 77 % (42-75); PLATELET COUNT 393 10^3/uL (130-400); WHITE BLOOD COUNT 13.2 10^3/uL (4.3-11.0)
[2022-04-18 10:45] LABS: ALBUMIN 3.6 GM/DL (3.2-4.5); BILIRUBIN,TOTAL 0.5 MG/DL (0.1-1.0); CALCIUM 8.8 MG/DL (8.5-10.1); CREATININE SERUM 0.66 MG/DL (0.60-1.30); POTASSIUM 4.5 MMOL/L (3.6-5.0); TOTAL PROTEIN 6.8 GM/DL (6.4-8.2)
== END 2022-05-02 | disposition home or self-care (01) ==
LOC: ONC 08:12
PROVIDERS: ATTEND Internal Medicine Hematology & Oncology
DX: Z51.11 Encounter for antineoplastic chemotherapy (principal); Z45.2 Encounter for adjustment and management of vascular access device; C76.1 Malignant neoplasm of thorax
CPT/HCPCS: 80053; 85025; 96413; G0463; 36591; 82024; 82533; 84443

== ENCOUNTER 2022-05-14 12:48 | Outpatient (RCR) | payer MEDICARE, OTHER ==
[2022-05-09 09:52] LABS: BASOPHILS # (AUTO) 0.1 10^3/uL (0.0-0.1); BASOPHILS % (AUTO) 1 % (0-10); EOSINOPHILS # (AUTO) 0.2 10^3/uL (0.0-0.3); EOSINOPHILS % (AUTO) 1 % (0-10); HEMATOCRIT 22 % (40-54); LYMPHOCYTES # (AUTO) 1.6 10^3/uL (1.0-4.0); LYMPHOCYTES % (AUTO) 11 % (12-44); MEAN CORPUSCULAR HEMOGLOBIN 21 pg (25-34); MEAN CORPUSCULAR HGB CONC 28 g/dL (32-36); MEAN CORPUSCULAR VOLUME 73 fL (80-99); MEAN PLATELET VOLUME 8.8 fL (9.0-12.2); MONOCYTES # (AUTO) 0.9 10^3/uL (0.0-1.0); MONOCYTES % (AUTO) 6 % (0-12); NEUTROPHILS % (AUTO) 81 % (42-75); PLATELET COUNT 444 10^3/uL (130-400); WHITE BLOOD COUNT 14.9 10^3/uL (4.3-11.0)
[2022-05-09 09:57] LABS: RETICULOCYTE % 2.42 % (0.50-2.40)
[2022-05-09 10:08] LABS: HEMOGLOBIN 6.3 g/dL (13.3-17.7)
[2022-05-09 10:33] LABS: ALBUMIN 3.7 GM/DL (3.2-4.5); BILIRUBIN,TOTAL 0.6 MG/DL (0.1-1.0); CALCIUM 8.6 MG/DL (8.5-10.1); CREATININE SERUM 0.65 MG/DL (0.60-1.30); POTASSIUM 4.4 MMOL/L (3.6-5.0); TOTAL PROTEIN 6.7 GM/DL (6.4-8.2)
[~2022-05-14 12:48] MED LIST changes: +NS IV 500 ML 500 ML IV ONE
[2022-05-14 13:32] LABS: BASOPHILS % (AUTO) 0 % (0-10); EOSINOPHILS # (AUTO) 0.2 10^3/uL (0.0-0.3); EOSINOPHILS % (AUTO) 2 % (0-10); HEMATOCRIT 26 % (40-54); HEMOGLOBIN 7.5 g/dL (13.3-17.7); LYMPHOCYTES # (AUTO) 1.6 10^3/uL (1.0-4.0); LYMPHOCYTES % (AUTO) 11 % (12-44); MEAN CORPUSCULAR HEMOGLOBIN 22 pg (25-34); MEAN CORPUSCULAR HGB CONC 29 g/dL (32-36); MEAN CORPUSCULAR VOLUME 77 fL (80-99); MEAN PLATELET VOLUME 8.9 fL (9.0-12.2); MONOCYTES # (AUTO) 1.3 10^3/uL (0.0-1.0); MONOCYTES % (AUTO) 9 % (0-12); NEUTROPHILS % (AUTO) 77 % (42-75); PLATELET COUNT 397 10^3/uL (130-400); WHITE BLOOD COUNT 14.2 10^3/uL (4.3-11.0)
[2022-05-18] MEDS ORDERED: INSU100I10 SC (16:10)
[2022-05-18] MEDS ORDERED: ASPI-1238 PO (16:10)
[2022-05-18] MEDS ORDERED: ATOR40TA70 PO (16:10)
[2022-05-18] MEDS ORDERED: FERR325T24 PO (16:10)
== END 2022-05-24 | disposition home or self-care (01) ==
LOC: ONC 12:48
PROVIDERS: ATTEND Internal Medicine Hematology & Oncology
DX: Z51.11 Encounter for antineoplastic chemotherapy (principal); C43.59 Malignant melanoma of other part of trunk; D64.9 Anemia, unspecified
CPT/HCPCS: 36430; 80053; 82607; 82728; 82746; 83540; 83550; 83615; 85025; 85045; 86850; 86900; 86901; 86920; 96413; G0463; P9016; 36415; 36591; 84443

== ENCOUNTER 2022-05-17 10:49 | Inpatient (IN) | payer MEDICARE, OTHER ==
[~2022-05-17] VITALS: Ht 182.9 cm; Wt 108.4 kg
[~2022-05-17 10:49] MED LIST changes: -HEParin (CENTRAL IV FLUSH) 500 UNIT/5 ML SYR IV PRN; -NS (IVPB) 250 ML IV SCH; -NS IV 500 ML 500 ML IV ONE; -PEMBROLIZUMAB 200 MG in NS (IVPB) 50 ML IV SCH
[2022-05-17 11:38] LABS: BASOPHILS % (AUTO) 0 % (0-10); EOSINOPHILS % (AUTO) 0 % (0-10); HEMATOCRIT 24 % (40-54); LYMPHOCYTES # (AUTO) 1.3 10^3/uL (1.0-4.0); LYMPHOCYTES % (AUTO) 6 % (12-44); MEAN CORPUSCULAR HEMOGLOBIN 21 pg (25-34); MEAN CORPUSCULAR HGB CONC 28 g/dL (32-36); MEAN CORPUSCULAR VOLUME 75 fL (80-99); MEAN PLATELET VOLUME 9.9 fL (9.0-12.2); MONOCYTES # (AUTO) 1.3 10^3/uL (0.0-1.0); MONOCYTES % (AUTO) 6 % (0-12); NEUTROPHILS # (AUTO) 18.2 10^3/uL (1.8-7.8); NEUTROPHILS % (AUTO) 86 % (42-75); PLATELET COUNT 436 10^3/uL (130-400); WHITE BLOOD COUNT 21.1 10^3/uL (4.3-11.0)
[2022-05-17 11:41] LABS: ALBUMIN 3.6 GM/DL (3.2-4.5)
[2022-05-17 11:42] LABS: POTASSIUM 4.9 MMOL/L (3.6-5.0)
[2022-05-17 11:43] LABS: CALCIUM 8.4 MG/DL (8.5-10.1)
[2022-05-17 11:44] LABS: TOTAL PROTEIN 6.8 GM/DL (6.4-8.2)
[2022-05-17 11:48] LABS: CREATININE SERUM 1.28 MG/DL (0.60-1.30)
[2022-05-17 11:51] LABS: MAGNESIUM 1.7 MG/DL (1.6-2.4)
[2022-05-17 11:55] LABS: HEMOGLOBIN 6.7 g/dL (13.3-17.7)
[2022-05-17 12:04] LABS: BAND NEUTROPHILS 8 %; BASOPHILS % (MANUAL) 0 %; EOSINOPHILS % (MANUAL) 0 %; LYMPHOCYTES % (MANUAL) 11 %; MONOCYTES % (MANUAL) 11 %; MYELOCYTES % 1 %; NEUTROPHILS % (MANUAL) 69 %
[2022-05-17 12:05] LABS: ANISOCYTOSIS SLIGHT; ELLIPT/OVALOCYTES SLIGHT; HYPOCHROMASIA SLIGHT; NUCLEATED RED BLOOD CELLS 1
--- NOTE | 2022-05-17 12:06 | ED Respiratory ---
General Chief Complaint: Respiratory Problems Stated Complaint: SOB Nursing Triage Note: PT TO [facility] BY [facility] FROM HOME WITH C/O SOB X3 DAYS, FALL LAST NIGHT AND THIS MORNING BUT DOESNT REMEMBER FALLING EITHER TIME. PT ALSO STATES HE HAS HAD A FEVER AND COUGH Source: patient Exam Limitations: no limitations History of Present Illness Date Seen by Provider: May 17, 2022 Time Seen by Provider: 11:15 Initial Comments Patient is a 76-year-old male to the emergency department via EMS with shortness of air x3 days. Patient also reportedly had a fall last night as well as this morning. He does not remember falling. States she has had intermittent fever as well as productive cough. He also states that he has had several days of increased general weakness. States he has had difficulty getting up and ambulating. He is currently undergoing treatment for skin cancer. No new medicines in the recent past. Denies chest pain or any other pain at this time. Allergies and Home Medications Allergies Coded Allergies: No Known Drug Allergies (Unverified , 03/15/22) Patient Home Medication List Home Medication List Reviewed: Yes Aspirin (Aspirin) 81 Mg Tab.chew, 81 MG PO DAILY, (Reported) Entered as Reported by: DAVID ARMAS on 03/15/22 1032 Atorvastatin Calcium (Lipitor) Unknown Strength Tablet, 40 MG PO HS, (Reported) Entered as Reported by: DAVID ARMAS on 03/15/22 1032 Lisinopril (Lisinopril) 10 Mg Tablet, 10 MG PO DAILY, (Reported) Entered as Reported by: DAVID ARMAS on 03/15/22 103 Metformin HCl (Metformin HCl) 1,000 Mg Tablet, 2,000 MG PO BID, (Reported) Entered as Reported by: DAVID ARMAS on 03/15/22 1032 Review of Systems Review of Systems Constitutional: see HPI, fever, weakness EENTM: no symptoms reported Respiratory: see HPI, cough, short of breath Gastrointestinal: no symptoms reported Genitourinary: no symptoms reported Musculoskeletal: no symptoms reported Skin: no symptoms reported Psychiatric/Neurological: No Symptoms Reported Hematologic/Lymphatic: No Symptoms Reported Immunological/Allergic: no symptoms reported Past Xjzreeu-Iurbco-Skhsuc Hx Patient Social History Tobacco Use?: No Smokeless Tobacco Frequency: Former User Use of E-Cig and/or Vaping dev: No Substance use?: No Alcohol Use?: No Pt feels they are or have been: No Immunizations Up To Date Influenza Vaccine Up-to-Date: Yes; Up-to-Date First/Initial COVID19 Vaccinat: 2020 Second COVID19 Vaccination Alejo: 2020 Third COVID19 Vaccination Date: 10/2021 Seasonal Allergies Seasonal Allergies: No Past Medical History Surgery/Hospitalization HX: DM, RESP FAILIURE, SKIN CANCER Appendectomy Respiratory: Yes (WEARS O2 2L AT HOME) Sleep Apnea Currently Using CPAP: No Currently Using BIPAP: No Cardiac: Yes High Cholesterol, Hypertension Neurological: No Genitourinary: No Gastrointestinal: No Musculoskeletal: Yes Arthritis Endocrine: Yes Diabetes, Insulin dep HEENT: No Cancer: Yes Skin, Breast Psychosocial: No Integumentary: No Blood Disorders: No Physical Exam Vital Signs - First Documented 05/17/22 05/17/22 10:52 11:14 Temp 36.6 Pulse 86 Resp 32 B/P (MAP) 100/51 (67) O2 Delivery Nasal Cannula O2 Flow Rate 2.00 Capillary Refill : Height: '" Weight: lbs. oz. kg; 26.42 BMI Method: General Appearance: WD/WN, no apparent distress HEENT: PERRL/EOMI, normal ENT inspection, TMs normal, pharynx normal Neck: non-tender, full range of motion, supple, normal inspection Respiratory: chest non-tender, decreased breath sounds, rales Cardiovascular: regular rate, rhythm Gastrointestinal: normal bowel sounds, non tender, soft Extremities: normal range of motion, non-tender Neurologic/Psychiatric: no motor/sensory deficits, alert, normal mood/affect, oriented x 3 Skin: normal color, warm/dry Focused Exam Lactate Level 05/17/22 12:05: Lactic Acid Level 4.03*H Lactic Acid Level Laboratory Tests Test 05/17/22 12:05 Lactic Acid Level 4.03 MMOL/L (0.50-2.00) *H Progress/Results/Core Measures Suspected Sepsis SIRS Temperature: Pulse: 86 Respiratory Rate: 32 Laboratory Tests 05/17/22 10:58: White Blood Count 21.1H Blood Pressure 100 /51 Mean: 67 05/17/22 12:05: Lactic Acid Level 4.03*H Laboratory Tests 05/17/22 10:58: Creatinine 1.28, INR Comment 1.1, Platelet Count 436H, Total Bilirubin 1.0 Results/Orders Lab Results Laboratory Tests Test 05/17/22 10:58 05/17/22 12:00 05/17/22 12:05 Range/Units White Blood Count 21.1 H 4.3-11.0 10^3/uL Red Blood Count 3.13 L 4.30-5.52 10^6/uL Hemoglobin 6.7 *L 13.3-17.7 g/dL Hematocrit 24 L 40-54 % Mean Corpuscular Volume 75 L 80-99 fL Mean Corpuscular Hemoglobin 21 L 25-34 pg Mean Corpuscular Hemoglobin Concent 28 L 32-36 g/dL Red Cell Distribution Width 18.0 H 10.0-14.5 % Platelet Count 436 H 130-400 10^3/uL Mean Platelet Volume 9.9 9.0-12.2 fL Immature Granulocyte % (Auto) 2 % Neutrophils (%) (Auto) 86 H 42-75 % Lymphocytes (%) (Auto) 6 L 12-44 % Monocytes (%) (Auto) 6 0-12 % Eosinophils (%) (Auto) 0 0-10 % Basophils (%) (Auto) 0 0-10 % Neutrophils # (Auto) 18.2 H 1.8-7.8 10^3/uL Lymphocytes # (Auto) 1.3 1.0-4.0 10^3/uL Monocytes # (Auto) 1.3 H 0.0-1.0 10^3/uL Eosinophils # (Auto) 0.0 0.0-0.3 10^3/uL Basophils # (Auto) 0.0 0.0-0.1 10^3/uL Immature Granulocyte # (Auto) 0.4 H 0.0-0.1 10^3/uL Neutrophils % (Manual) 69 % Lymphocytes % (Manual) 11 % Monocytes % (Manual) 11 % Eosinophils % (Manual) 0 % Basophils % (Manual) 0 % Myelocytes % 1 % Band Neutrophils 8 % Nucleated Red Blood Cells 1 Hypochromasia SLIGHT Anisocytosis SLIGHT Elliptocytes SLIGHT Prothrombin Time 14.8 H 12.2-14.7 SEC INR Comment 1.1 0.8-1.4 Activated Partial Thromboplast Time 38 H 24-35 SEC Sodium Level 121 *L 135-145 MMOL/L Potassium Level 4.9 3.6-5.0 MMOL/L Chloride Level 81 L 98-107 MMOL/L Carbon Dioxide Level 20 L 21-32 MMOL/L Anion Gap 20 H 5-14 MMOL/L Blood Urea Nitrogen 21 H 7-18 MG/DL Creatinine 1.28 0.60-1.30 MG/DL Estimat Glomerular Filtration Rate 58 BUN/Creatinine Ratio 16 Glucose Level 238 H 70-105 MG/DL Calcium Level 8.4 L 8.5-10.1 MG/DL Corrected Calcium 8.7 8.5-10.1 MG/DL Magnesium Level 1.7 1.6-2.4 MG/DL Total Bilirubin 1.0 0.1-1.0 MG/DL Aspartate Amino Transf (AST/SGOT) 62 H 5-34 U/L Alanine Aminotransferase (ALT/SGPT) 96 H 0-55 U/L Alkaline Phosphatase 78 40-136 U/L Troponin I 0.194 H <0.028 NG/ML Total Protein 6.8 6.4-8.2 GM/DL Albumin 3.6 3.2-4.5 GM/DL Influenza Type A (RT-PCR) Not Detected Not Detecte Influenza Type B (RT-PCR) Not Detected Not Detecte SARS-CoV-2 RNA (RT-PCR) Not Detected Not Detecte Lactic Acid Level 4.03 *H 0.50-2.00 MMOL/L My Orders Orders - SANKET MADDOX APRN Cbc With Automated Diff (05/17/22 11:19) Comprehensive Metabolic Panel (05/17/22 11:19) Troponin I [place] (05/17/22 11:19) Ekg Tracing (05/17/22 11:19) Chest 1 View, Ap/Pa Only (05/17/22 11:19) Magnesium (05/17/22 11:19) Covid 19 Inhouse Test (05/17/22 11:33) Influenza A And B By Pcr (05/17/22 11:33) Isolation Central Supply Req (05/17/22 11:33) Manual Differential (05/17/22 10:58) Blood Culture (05/17/22 12:01) Urinalysis (05/17/22 12:01) Urine Culture (05/17/22 12:01) Protime With Inr (05/17/22 12:01) Partial Thromboplastin Time (05/17/22 12:01) Ed Iv/Invasive Line Start (05/17/22 12:01) Vital Signs Adult Sepsis Patie Q15M (05/17/22 12:01) O2 (05/17/22 12:01) Lactic Acid Analyzer (05/17/22 12:01) Cefepime Injection (Maxipime Injection) (05/17/22 12:15) Lactated Ringers (Lr 1000 Ml Iv Solution (05/17/22 12:15) Ct Head Wo (05/17/22 12:30) Lactated Ringers (Lr 1000 Ml Iv Solution (05/17/22 13:00) Ed Admission (Communication) (05/17/22 14:16) Medications Given in ED Current Medications Medications Dose Ordered Sig/Daquan Route Start Time Stop Time Status Last Admin Dose Admin Cefepime HCl 1000 mg/Sodium Chloride 50 ml @ 100 mls/hr ONCE ONCE IV 05/17/22 12:15 05/17/22 12:44 DC 05/17/22 13:12 100 MLS/HR Vital Signs/I&O 05/17/22 05/17/22 10:52 11:14 Temp 36.6 Pulse 86 Resp 32 B/P (MAP) 100/51 (67) O2 Delivery Nasal Cannula O2 Flow Rate 2.00 Capillary Refill : Blood Pressure Mean: 67 Progress Note : Progress Note Patient is nontoxic and well-hydrated on exam. He is mildly somnolent but easily arouses to verbal stimuli and answers all questions appropriately. Patient has diffusely diminished breath sounds in all lung barrett. Mild rales also noted. Vital signs reassuring with no tachycardia or hypotension. Patient is stable on 2 L of oxygen via nasal cannula with oxygen saturations in the mid 90s. Laboratory evaluation notable for leukocytosis, anemia, hyponatremia, and elevated troponin. Patient was given 2 L of LR after he was noted to have an increased lactic acid over 4. Not quite 30 mL/kg but I did not want to overload him with fluids given his rales on initial exam. He was given a dose of cefepime. Chest x-ray revealed possible groundglass opacities in the right lower lobe of the lung suspicious for infiltrate. Urine and blood cultures were obtained. Patient had an significant increase in awareness as well as work of breathing with the above interventions. Will admit for further evaluation and treatment. Patient updated on plan of care and understanding verbalized. Departure Impression Primary Impression: Severe sepsis Additional Impression: Right lower lobe pneumonia Qualified Codes: J18.9 - Pneumonia, unspecified organism Disposition: ADMITTED INPATIENT Condition: Stable Admissions Decision to Admit/Date: May 17, 2022 Time/Decision to Admit Time: 14:05 Departure-Patient Inst. Referrals: STEPHANIE IRBY MD (PCP/Family) Primary Care Physician SANKET MADDOX APRN May 17, 2022 12:06
--- NOTE | 2022-05-17 12:09 | Diagnostic Imaging Report ---
CLINICAL INDICATION: Patient complains of shortness breath x2 days. Patient fell last night and this morning but does remember falling neither time. EXAM: Portable chest x-ray, upright view. COMPARISON: Chest x-ray dated 03/26/2022. FINDINGS: There is development of very subtle ground-glass opacification involving the right lung base. Otherwise, lungs are stable. There is bibasilar atelectasis or scarring. There is no pleural effusion or pneumothorax. Pulmonary vasculature and cardiac silhouette are within normal limits. There are degenerative spurs involving the thoracic spine. Port-A-Cath is again seen overlying the right chest in stable position. IMPRESSION: There is interval development of very minimal ground-glass opacification involving the right lung base, which may represent lung infiltrate. Dictated by: Dictated on workstation # [id number]
[2022-05-17] MEDS ORDERED: CEFEPIME INJECTION 1,000 MG in NS (IVPB) 50 ML IV ONE (12:15)
[2022-05-17] MEDS ORDERED: LACTATED RINGERS 1,000 ML IV SCH (12:15)
[2022-05-17 12:18] LABS: INR 1.1 (0.8-1.4); PROTHROMBIN TIME PATIENT 14.8 SEC (12.2-14.7)
--- NOTE | 2022-05-17 13:10 | Diagnostic Imaging Report ---
CLINICAL INDICATION: Patient with shortness breath x3 days. Patient fell last night and this morning does remember falling. EXAM: Axial CT scan of the brain without IV contrast with coronal and sagittal reformatted images. Auto Exposure Controls were utilized during the CT exam to meet ALARA standards for radiation dose reduction. COMPARISON: MRI of the brain without and with contrast dated 03/15/2022. Head CT with and without contrast dated 02/02/2022. FINDINGS: There is no evidence of acute cerebral infarct, intracranial hemorrhage, or gross mass effect. The brain parenchymal volume appears appropriate for patient's age. There is normal rios-white matter distinction. There is no significant midline shift or herniation. There is no evidence of hydrocephalus. The basal cisterns are unremarkable. The skull, extracranial soft tissue, and orbits are unremarkable. The paranasal sinuses are unremarkable. Temporal bones show no significant abnormality. IMPRESSION: Unremarkable CT scan of the brain. Dictated by: Dictated on workstation # [id number]
[2022-05-17] MEDS: LACTATED RINGERS 1,000 ML IV SCH ×2 (15:30→15:43)
[2022-05-17 18:16] VITALS: BP 122/68
--- NOTE | 2022-05-17 18:22 | Diagnostic Imaging Report ---
INDICATION: Intubation. COMPARISON: Comparison is made with prior examination of 05/17/2022. FINDINGS: Heart size is normal. There is some right perihilar interstitial prominence. There is no pleural effusion or pneumothorax. Lines tubes are in satisfactory position. IMPRESSION: Right perihilar interstitial prominence, possibly reflecting early pneumonia. Recommend clinical correlation. Dictated by: Dictated on workstation # [id number]
--- NOTE | 2022-05-17 18:29 | History & Physicial ---
History of Present Illness History of Present Illness Reason for visit/HPI 76-year-old male presents to [facility] emergency department in the morning of May 17 for shortness of breath over the past 3 days. He also does have a cough and apparently has had some productivity of phlegm. He reports overall generalized weakness. He has been having difficulty getting up and walking around. In the emergency department there was no reported chest pain. He is cu rrently undergoing treatment for malignant melanoma. Date of Admission May 17, 2022 at 14:16 Date Seen by a Provider: May 17, 2022 Time Seen by a Provider: 17:25 I consulted on this patient on 05/17/22 18:24 Attending Physician Raghav Irby MD Admitting Physician Admitting Physician: Raghav Irby MD Attending Physician: Raghav Irby MD Consult Allergies and Home Medications Allergies Coded Allergies: No Known Drug Allergies (Unverified , 03/15/22) Patient Home Medication List Home Medication List Reviewed: Yes Aspirin (Aspirin) 81 Mg Tab.chew, 81 MG PO DAILY, (Reported) Entered as Reported by: DAVID ARMAS on 03/15/22 1032 Atorvastatin Calcium (Lipitor) Unknown Strength Tablet, 40 MG PO HS, (Reported) Entered as Reported by: DAVID ARMAS on 03/15/22 1032 Lisinopril (Lisinopril) 10 Mg Tablet, 10 MG PO DAILY, (Reported) Entered as Reported by: DAVID ARMAS on 03/15/22 1032 Metformin HCl (Metformin HCl) 1,000 Mg Tablet, 2,000 MG PO BID, (Reported) Entered as Reported by: DAVID ARMAS on 03/15/22 1032 Past Gjuhyut-Roqclq-Kcyacs Hx Patient Social History Smoking Status: Former Smoker Former Smoker, Quit: Mar 15, 2018 2nd Hand Smoke Exposure: No Recent Hopitalizations: No Have you traveled recently?: No Alcohol Use?: No Pt feels they are or have been: No Seasonal Allergies Seasonal Allergies: No Surgeries Appendectomy Respiratory Yes (WEARS O2 2L AT HOME) Currently Using CPAP: No Currently Using BIPAP: No Cardiovascular Yes High Cholesterol, Hypertension Neurological No Genitourinary No Gastrointestinal No Musculoskeletal Yes Arthritis Endocrine History of Endocrine Disorders: Yes Endocrine Disorders: Diabetes, Insulin dep HEENT History of HEENT Disorders: No Cancer Yes Skin, Breast Psychosocial History of Psychiatric Problem: No Integumentary History of Skin or Integumenta: No Blood Transfusions History of Blood Disorders: No Review of Systems Constitutional: see HPI Physical Exam Vital Signs Vital Signs - First Documented 05/17/22 05/17/22 05/17/22 05/17/22 10:52 11:14 15:15 18:16 Temp 36.6 Pulse 86 Resp 32 B/P (MAP) 100/51 (67) Pulse Ox 98 O2 Delivery Nasal Cannula O2 Flow Rate 2.00 FiO2 100 Capillary Refill : Height, Weight, BMI Height: '" Weight: lbs. oz. kg; 27.47 BMI Method: General Appearance: Other (Currently intubated) Eyes: Bilateral Eye Normal Inspection HEENT: PERRL/EOMI Respiratory: Crackles (In bases) Cardiovascular: Regular Rate, Rhythm Gastrointestinal: Soft Rectal: Deferred Genital/Rectal: Other (Larson catheter in place) Extremity: Normal Capillary Refill (Is weak) Neurologic/Psychiatric: Other (Noncommunicating due to intubation) Comments [facility], [place] NAME: AN[facility]BELLE QU[facility]LEY [facility] REC#: [id number] PT STATUS: ADM IN : 1945 PHYSICIAN: SANKET MADDOX APRN ADMIT DATE: 05/17/22 Signed Date of Exam:05/17/22 CHEST 1 VIEW, AP/PA ONLY CLINICAL INDICATION: Patient complains of shortness breath x2 days. Patient fell last night and this morning but does remember falling neither time. EXAM: Portable chest x-ray, upright view. COMPARISON: Chest x-ray dated 03/26/2022. FINDINGS: There is development of very subtle ground-glass opacification involving the right lung base. Otherwise, lungs are stable. There is bibasilar atelectasis or scarring. There is no pleural effusion or pneumothorax. Pulmonary vasculature and cardiac silhouette are within normal limits. There are degenerative spurs involving the thoracic spine. Port-A-Cath is again seen overlying the right chest in stable position. IMPRESSION: There is interval development of very minimal ground-glass opacification involving the right lung base, which may represent lung infiltrate. Dictated by: Dictated on workstation # [id number] Dict: 05/17/22 1203 Trans: 05/17/22 1746 [id number] Interpreted by: SARAI MARTINEZ MD Electronically signed by: SARAI MARTINEZ MD 05/17/22 1746 Assessment/Plan Assessment and Plan 1. Sepsis--CODE BLUE on floor on day of admission -He was started on cefepime in the emergency department -IV fluids continue -eICU consultation 2. Pneumonia -Cefepime 3. Hyponatremia -We will follow sodium in a.m. since he has now been receiving IV fluids 4. Anemia -Plan on transfusion with 2 units and recheck CBC 5. Elevated troponin -Cardiology consultation 6. Malignant melanoma -Recently diagnosed 7. Diabetes mellitusknown 8. Hyperlipidemia 9. History of hypertension currently hypotensive however Admission Diagnosis 1. Sepsis 2. Pneumonia 3. Hyponatremia 4. Anemia 5. Malignant melanoma 6. Diabetes mellitusknown 7. Hyperlipidemia 8. History of hypertension currently hypotensive however Admission Status: Inpatient Order (span 2 midnights) Reason for Inpatient Admission: At this time patient has coded and is in ICU. He is intubated and will need vent care. He will stay on IV cefepime as well as IV fluids. eICU consultation as well as cardiology consultation RAGHAV IRBY MD May 17, 2022 18:29
[2022-05-17] MEDS ORDERED: SODIUM BICARB 8.4% 50 MEQ/50 ML (ABBOTT) SYR IV NR (18:30)
[2022-05-17] MEDS ORDERED: NOREPINEPHRINE 8 MG/250 ML 250 ML IV ONE (18:33)
[2022-05-17] MEDS: NOREPINEPHRINE 8 MG/250 ML 250 ML IV SCH ×2 (18:35→19:00)
--- NOTE | 2022-05-17 18:41 | Tele-ICU Consult ---
History of Present Illness History of Present Illness Date Seen by Provider: May 17, 2022 Time Seen by Provider: 18:40 Date of Admission (Tele-ICU Physician , consultation as per request of PCP Service provided via interactive audio and video telecommunications E-CARE system to a patient admitted to ICU bed in [facility]. Available chart/ vitals / labs / Images reviewed H&P is from ER notes Patient's information available about PMH, Shx, Fhx allergy reviewed inEMR. ROS as per chart and RN report Now in ICU, hemodynamically stable Video assessment done using teleICU camera, rest of exam as per RN Discussed with RN. 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 Discussed with RN to reach out if any questions or concerns A total of 40 minutes of critical care time was devoted to this patient today, required to treat and/or prevent further deterioration of critical care condition ( as above ) I am remotely monitoring this patient from another state. I am unable to do the bedside exam, and history/physical and pertinent information is taken from other notes in the computer and bedside staff. . Allergies and Home Medications Allergies Coded Allergies: No Known Drug Allergies (Unverified , 03/15/22) Home Medications Aspirin 81 Mg Tab.chew, 81 MG PO DAILY, (Reported) Atorvastatin Calcium Unknown Strength Tablet, 40 MG PO HS, (Reported) Lisinopril 10 Mg Tablet, 10 MG PO DAILY, (Reported) Metformin HCl 1,000 Mg Tablet, 2,000 MG PO BID, (Reported) Past Medical/Social/Family Hx Patient Social History Tobacco Use?: No Smoking Status: Former Smoker Smokeless Tobacco Frequency: Former User Use of E-Cig and/or Vaping dev: No Substance use?: No Alcohol Use?: No Pt stated abuse/neglect: No Immunizations Up To Date Influenza Vaccine Up-to-Date: Yes; Up-to-Date First/Initial COVID19 Vaccinat: 2020 Second COVID19 Vaccination Alejo: 2020 Tetanus Booster (TDap): Unknown Hepatitis A: No Hepatitis B: No TB Skin Test: None Current Status Advance Directives: No Communicates: Verbally Primary Language: Gibraltarian Preferred Spoken Language: Gibraltarian Is interpretation needed?: No Implanted or Applied Medical D: Port-a-cath Review of Systems Constitutional: see HPI Focused Exam Lactate Level 05/17/22 12:05: Lactic Acid Level 4.03*H 05/17/22 15:39: Lactic Acid Level 2.28*H 05/17/22 17:30: Lactic Acid Level 8.82*H Height, Weight, BMI Height: '" Weight: lbs. oz. kg; 27.47 BMI Method: Lactic Acid Level Laboratory Tests Test 05/17/22 15:39 05/17/22 17:30 Lactic Acid Level 2.28 MMOL/L (0.50-2.00) *H 8.82 MMOL/L (0.50-2.00) *H Exam Exam Patient acknowledged, consented, and participated in this virtual visit which was conducted using real time audio/video Vital Signs Date Time Temp Pulse Resp B/P (MAP) Pulse Ox O2 Delivery O2 Flow Rate FiO2 05/17/22 18:35 92 53/41 05/17/22 18:25 92 18 53/41 (45) 97 Mechanical Ventilator 100.00 05/17/22 18:20 95 9 59/25 (36) 94 Mechanical Ventilator 100.00 05/17/22 18:20 95 05/17/22 18:16 104 18 99 100 05/17/22 18:15 96 16 62/38 (46) 100 Mechanical Ventilator 100.00 05/17/22 15:15 36.6 86 22 158/52 98 Nasal Cannula 2.00 2.00 05/17/22 11:14 Nasal Cannula 2.00 05/17/22 10:52 36.6 86 32 100/51 (67) Height & Weight Height: '" Weight: lbs. oz. kg; 27.47 BMI Method: General Appearance: Other (Currently intubated) HEENT: PERRL/EOMI Respiratory: Crackles (In bases) Cardiovascular: Regular Rate, Rhythm Gastrointestinal: normal bowel sounds, non tender, soft Extremity: Normal Capillary Refill (Is weak) Neurologic/Psychiatric: Other (Noncommunicating due to intubation) Results Lab Laboratory Tests 05/17/22 10:58 Assessment/Plan Assessment/Plan 1 JINA GREENFIELD MD May 17, 2022 18:41
[2022-05-17] MEDS ORDERED: CEFEPIME INJECTION 1,000 MG in NS (IVPB) 50 ML IV SCH (18:45)
[2022-05-17] MEDS ORDERED: NS IV 500 ML 500 ML IV SCH (18:45)
[2022-05-17] MEDS ORDERED: NS IV 1000 ML 1,000 ML ONE (18:47)
[2022-05-17 19:13] LABS: HEMATOCRIT 24 % (40-54); MEAN CORPUSCULAR HEMOGLOBIN 22 pg (25-34); MEAN CORPUSCULAR HGB CONC 29 g/dL (32-36); MEAN CORPUSCULAR VOLUME 75 fL (80-99); MEAN PLATELET VOLUME 9.6 fL (9.0-12.2); PLATELET COUNT 400 10^3/uL (130-400); WHITE BLOOD COUNT 26.8 10^3/uL (4.3-11.0)
[2022-05-17 19:14] VITALS: BP 119/58
[2022-05-17 19:19] LABS: ALBUMIN 3.2 GM/DL (3.2-4.5)
[2022-05-17 19:20] LABS: CALCIUM 8.2 MG/DL (8.5-10.1)
[2022-05-17 19:22] LABS: TOTAL PROTEIN 6.1 GM/DL (6.4-8.2)
[2022-05-17 19:23] LABS: BILIRUBIN,TOTAL 0.8 MG/DL (0.1-1.0)
[2022-05-17 19:25] LABS: CREATININE SERUM 1.33 MG/DL (0.60-1.30)
[2022-05-17] MEDS ORDERED: ATROPINE INJECTION 1 MG/10 ML SYR (ABBOTT) INJ ONE (19:26)
[2022-05-17] MEDS ORDERED: EPINEPHrine 0.1 MG/ML 10 ML (HOSPIRA) SYR INJ ONE (19:26)
[2022-05-17 19:28] LABS: MAGNESIUM 1.8 MG/DL (1.6-2.4)
[2022-05-17] MEDS ORDERED: ROCURONIUM 50 MG/5 ML (ZEMURON) VIAL IV ONE (19:34)
--- NOTE | 2022-05-17 20:03 | Anesthesia-Procedure Note ---
Procedures/Interventions Procedure Start/Stop/Diagnosis Date of Procedure: May 17, 2022 Start Time: 19:30 Stop Time: 20:00 Arterial Line Arterial Line Catheter: 20G Type: Radial Location: Right Procedure: prepped, draped in sterile fashion, good wave-form was obtained, patient tolerated procedure well, no immediate complications, post procedure area cleaned, post procedure dressing applied (50 mg zemuron given iv due to excessive movement during placement.) APOLINAR DEVLIN CRNA May 17, 2022 20:03
[2022-05-17] MEDS: EPINEPHrine 1 MG INJECTION 4 MG in NS (IVPB) 246 ML IV SCH (20:38)
--- NOTE | 2022-05-17 20:39 | Consultation-Cardiology ---
HPI-Cardiology Cardiology Consultation Date of Consultation 05/17/22 Date of Admission Time Seen by Provider: 20:35 Indication: Elevated troponin level HPI 76-year-old gentleman with no known cardiac history, has been having chills, shortness of breath, he is oxygen dependent at home. Symptoms were getting worse, came into the emergency room and he was admitted for sepsis and shortness of breath. While arriving to the floor he became bradycardia tachycardic then had asystole, responded to ACLS protocol and reestablish pulse. Patient was intubated and transferred to ICU. History was obtained by reviewing his record and visiting with the family. He is unable to provide any history. Home Medications & Allergies Allergies: Coded Allergies: No Known Drug Allergies (Unverified , 03/15/22) Home Medication List Reviewed: Yes XXL-Pqnmho-Khaqcd Hx Patient Social History Smoking Status: Former Smoker Type Used: Cigarettes 2nd Hand Smoke Exposure: No Recent Hopitalizations: No Have you traveled recently?: No Alcohol Use?: No Family Medical History Significant Family History: No Pertinent Family Hx Review of Systems-General Review of Systems Constitutional: see HPI, other (Unable to provide review of system) EENTM: no symptoms reported Respiratory: see HPI, cough, short of breath Gastrointestinal: no symptoms reported Genitourinary: no symptoms reported Musculoskeletal: no symptoms reported Skin: no symptoms reported Psychiatric/Neurological: No Symptoms Reported Reviewed Test Results Reviewed Test Results Lab Laboratory Tests Test 05/17/22 10:58 05/17/22 12:00 05/17/22 12:05 05/17/22 15:39 Range/Units White Blood Count 21.1 H 4.3-11.0 10^3/uL Red Blood Count 3.13 L 4.30-5.52 10^6/uL Hemoglobin 6.7 *L 13.3-17.7 g/dL Hematocrit 24 L 40-54 % Mean Corpuscular Volume 75 L 80-99 fL Mean Corpuscular Hemoglobin 21 L 25-34 pg Mean Corpuscular Hemoglobin Concent 28 L 32-36 g/dL Red Cell Distribution Width 18.0 H 10.0-14.5 % Platelet Count 436 H 130-400 10^3/uL Mean Platelet Volume 9.9 9.0-12.2 fL Immature Granulocyte % (Auto) 2 % Neutrophils (%) (Auto) 86 H 42-75 % Lymphocytes (%) (Auto) 6 L 12-44 % Monocytes (%) (Auto) 6 0-12 % Eosinophils (%) (Auto) 0 0-10 % Basophils (%) (Auto) 0 0-10 % Neutrophils # (Auto) 18.2 H 1.8-7.8 10^3/uL Lymphocytes # (Auto) 1.3 1.0-4.0 10^3/uL Monocytes # (Auto) 1.3 H 0.0-1.0 10^3/uL Eosinophils # (Auto) 0.0 0.0-0.3 10^3/uL Basophils # (Auto) 0.0 0.0-0.1 10^3/uL Immature Granulocyte # (Auto) 0.4 H 0.0-0.1 10^3/uL Neutrophils % (Manual) 69 % Lymphocytes % (Manual) 11 % Monocytes % (Manual) 11 % Eosinophils % (Manual) 0 % Basophils % (Manual) 0 % Myelocytes % 1 % Band Neutrophils 8 % Nucleated Red Blood Cells 1 Hypochromasia SLIGHT Anisocytosis SLIGHT Elliptocytes SLIGHT Prothrombin Time 14.8 H 12.2-14.7 SEC INR Comment 1.1 0.8-1.4 Activated Partial Thromboplast Time 38 H 24-35 SEC Sodium Level 121 *L 135-145 MMOL/L Potassium Level 4.9 3.6-5.0 MMOL/L Chloride Level 81 L 98-107 MMOL/L Carbon Dioxide Level 20 L 21-32 MMOL/L Anion Gap 20 H 5-14 MMOL/L Blood Urea Nitrogen 21 H 7-18 MG/DL Creatinine 1.28 0.60-1.30 MG/DL Estimat Glomerular Filtration Rate 58 BUN/Creatinine Ratio 16 Glucose Level 238 H 70-105 MG/DL Calcium Level 8.4 L 8.5-10.1 MG/DL Corrected Calcium 8.7 8.5-10.1 MG/DL Magnesium Level 1.7 1.6-2.4 MG/DL Total Bilirubin 1.0 0.1-1.0 MG/DL Aspartate Amino Transf (AST/SGOT) 62 H 5-34 U/L Alanine Aminotransferase (ALT/SGPT) 96 H 0-55 U/L Alkaline Phosphatase 78 40-136 U/L Troponin I 0.194 H <0.028 NG/ML Total Protein 6.8 6.4-8.2 GM/DL Albumin 3.6 3.2-4.5 GM/DL Influenza Type A (RT-PCR) Not Detected Not Detecte Influenza Type B (RT-PCR) Not Detected Not Detecte SARS-CoV-2 RNA (RT-PCR) Not Detected Not Detecte Lactic Acid Level 4.03 *H 2.28 *H 0.50-2.00 MMOL/L Test 05/17/22 17:19 05/17/22 17:30 05/17/22 19:00 Range/Units Glucometer 142 H 70-110 MG/DL Lactic Acid Level 8.82 *H 9.79 *H 0.50-2.00 MMOL/L White Blood Count 26.8 H 4.3-11.0 10^3/uL Red Blood Count 3.22 L 4.30-5.52 10^6/uL Hemoglobin 7.0 L 13.3-17.7 g/dL Hematocrit 24 L 40-54 % Mean Corpuscular Volume 75 L 80-99 fL Mean Corpuscular Hemoglobin 22 L 25-34 pg Mean Corpuscular Hemoglobin Concent 29 L 32-36 g/dL Red Cell Distribution Width 17.9 H 10.0-14.5 % Platelet Count 400 130-400 10^3/uL Mean Platelet Volume 9.6 9.0-12.2 fL Sodium Level 124 *L 135-145 MMOL/L Potassium Level 5.0 3.6-5.0 MMOL/L Chloride Level 84 L 98-107 MMOL/L Carbon Dioxide Level 21 21-32 MMOL/L Anion Gap 19 H 5-14 MMOL/L Blood Urea Nitrogen 25 H 7-18 MG/DL Creatinine 1.33 H 0.60-1.30 MG/DL Estimat Glomerular Filtration Rate 55 BUN/Creatinine Ratio 19 Glucose Level 146 H 70-105 MG/DL Calcium Level 8.2 L 8.5-10.1 MG/DL Corrected Calcium 8.8 8.5-10.1 MG/DL Magnesium Level 1.8 1.6-2.4 MG/DL Total Bilirubin 0.8 0.1-1.0 MG/DL Aspartate Amino Transf (AST/SGOT) 175 H 5-34 U/L Alanine Aminotransferase (ALT/SGPT) 225 H 0-55 U/L Alkaline Phosphatase 75 40-136 U/L Troponin I 0.900 *H <0.028 NG/ML Total Protein 6.1 L 6.4-8.2 GM/DL Albumin 3.2 3.2-4.5 GM/DL Triglycerides Level 50 <150 MG/DL Physical Exam Physical Exam Vital Signs Vital Signs - First Documented 05/17/22 05/17/22 05/17/22 05/17/22 10:52 11:14 15:15 18:16 Temp 36.6 Pulse 86 Resp 32 B/P (MAP) 100/51 (67) Pulse Ox 98 O2 Delivery Nasal Cannula O2 Flow Rate 2.00 FiO2 100 Capillary Refill : Height, Weight, BMI Height: '" Weight: lbs. oz. kg; 27.47 BMI Method: General Appearance: Other (Currently intubated) Eyes: Bilateral Eye Normal Inspection HEENT: PERRL/EOMI, TMs Normal Respiratory: Crackles (In bases), Decreased Breath Sounds, Wheezing Cardiovascular: Regular Rate, Rhythm, No Murmur Gastrointestinal: Soft Rectal: Deferred Genital/Rectal: Other (Larson catheter in place) Extremity: Normal Capillary Refill (Is weak) Neurologic/Psychiatric: Other (Noncommunicating due to intubation) A/P-Cardiology Admission Diagnosis Acute respiratory failure Severe hypoxemia Septic shock COPD Assessment/Plan Acute respiratory failure, ventilator dependent, progressed with pulmonary infiltrate. Probably pneumonia, transferred to ICU and started on antibiotics Status post cardiac arrest secondary to bradycardia then asystole, most probably secondary to hypoxemia. No sign of acute myocardial infarction on his EKG Elevated troponin, type II myocardial infarction probably secondary to severe hypoxemia and severe anemia. Sepsis with septic shock. Started on pressors. 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 Worsening at this point. 2D echo was done at bedside showing normal LV size with mild hypokinesia, ejection fraction 45 to 50%. Pulmonary artery pressure appears to be 25 to 30 mmHg. No signs of cardiogenic shocks. Lactic acidosis, persistent secondary to sepsis, worsening postcode Acute shock liver, elevated liver enzymes after cardiac arrest. Acute renal failure, probably secondary to sepsis and hypoxemia Electrolytes imbalance. Severe anemia, continue to monitor H&H ANH GALEANO MD May 17, 2022 20:38
[2022-05-17] MEDS: PROPOFOL DRIP (ICU) 100 ML IV SCH (20:40)
[2022-05-17] MEDS: CEFEPIME INJECTION 1,000 MG in NS (IVPB) 50 ML IV SCH (20:45)
[2022-05-17] MEDS ORDERED: CEFEPIME INJECTION 500 MG in NS (IVPB) 50 ML IV SCH (21:00)
[2022-05-17 21:12] VITALS: BP 134/40
[2022-05-17] MEDS ORDERED: NS IV 500 ML 500 ML ONE (21:20)
[2022-05-17] MEDS ORDERED: EPINEPHrine (PYXIS DRIP KIT ONLY) 1 MG/ML X 4 AMPS ONE (21:20)
[2022-05-17] MEDS ORDERED: NS (IVPB) 250 ML ONE (21:20)
[2022-05-17 21:24] VITALS: BP 137/40
--- NOTE | 2022-05-17 21:30 | Consultation - Surgery ---
History of Present Illness History of Present Illness Patient Consulted On(rodney/time) 05/17/22 21:21 Time Seen by Provider: 08:41 History of Present Illness Surgery asked to consult regarding hypotension, sepsis and venous insufficiency. HPI per ED: Patient is a 76-year-old male to the emergency department via EMS with shortness of air x3 days. Patient also reportedly had a fall last night as well as this morning. He does not remember falling. States she has had intermittent fever as well as productive cough. He also states that he has had several days of increased general weakness. States he has had difficulty getting up and ambulating. He is currently undergoing treatment for skin cancer. No new medicines in the recent past. Denies chest pain or any other pain at this time. HPI per Cardiology: 76-year-old gentleman with no known cardiac history, has been having chills, shortness of breath, he is oxygen dependent at home. Symptoms were getting worse, came into the emergency room and he was admitted for sepsis and shortness of breath. While arriving to the floor he became bradycardia tachycardic then had asystole, responded to ACLS protocol and reestablish pulse. Patient was intubated and transferred to ICU. History was obtained by reviewing his record and visiting with the family. He is unable to provide any history. When I saw pt he was intubated and sedated, no family at bedside. Information obtained from chart. Allergies and Home Medications Allergies Coded Allergies: No Known Drug Allergies (Unverified , 03/15/22) Patient Home Medication List Home Medication List Reviewed: Yes Aspirin (Aspirin) 81 Mg Tab.chew, 81 MG PO DAILY, (Reported) Entered as Reported by: DAVID ARMAS on 03/15/22 1032 Atorvastatin Calcium (Lipitor) Unknown Strength Tablet, 40 MG PO HS, (Reported) Entered as Reported by: DAVID ARMAS on 03/15/22 1032 Lisinopril (Lisinopril) 10 Mg Tablet, 10 MG PO DAILY, (Reported) Entered as Reported by: DAVID ARMAS on 03/15/22 103 Metformin HCl (Metformin HCl) 1,000 Mg Tablet, 2,000 MG PO BID, (Reported) Entered as Reported by: DAVID ARMAS on 03/15/22 1032 Past Qburuyk-Gdtoac-Bszdle Hx Patient Social History Smoking Status: Former Smoker Former Smoker, Quit: Mar 15, 2018 Type Used: Cigarettes 2nd Hand Smoke Exposure: No Recent Hopitalizations: No Alcohol Use?: No Have you traveled recently?: No Seasonal Allergies Seasonal Allergies: No Surgeries Surgeries: Appendectomy Respiratory History of Respiratory Disorde: Yes (WEARS O2 2L AT HOME) Respiratory Disorders: Sleep Apnea Cardiovascular History of Cardiac Disorders: Yes Cardiac Disorders: High Cholesterol, Hypertension Neurological History of Neurological Disord: No Genitourinary History of Genitourinary Disor: No Gastrointestinal History of Gastrointestinal Di: No Musculoskeletal History of Musculoskeletal Dis: Yes Musculoskeletal Disorders: Arthritis Endocrine History of Endocrine Disorders: Yes Endocrine Disorders: Diabetes, Insulin dep HEENT History of HEENT Disorders: No Cancer History of Cancer: Yes Cancer: Skin, Breast Psychosocial History of Psychiatric Problem: No Integumentary History of Skin or Integumenta: No Blood Transfusions History of Blood Disorders: No Family Medical History Significant Family History: No Pertinent Family Hx Review of Systems-General ROS-Unable to Obtain: pt intubated and sedated Physical Exam-General Problems Physical Exam Vital Signs Vital Signs - First Documented 05/17/22 05/17/22 05/17/22 05/17/22 10:52 11:14 15:15 18:16 Temp 36.6 Pulse 86 Resp 32 B/P (MAP) 100/51 (67) Pulse Ox 98 O2 Delivery Nasal Cannula O2 Flow Rate 2.00 FiO2 100 Capillary Refill : General Appearance: other (intubated and sedated) Eyes: Bilateral Eye PERRL, Bilateral Eye EOMI HEENT: No scleral icterus (R), No scleral icterus (L) Respiratory: no respiratory distress, no accessory muscle use, crackles, other (on vent) Cardiovascular: tachycardia Gastrointestinal: soft, no organomegaly, no pulsatile mass Neurologic/Psychiatric: other (intubated and sedated) Skin: cool, pallor Data Review Labs Laboratory Tests 05/17/22 10:58: White Blood Count 21.1H, Red Blood Count 3.13L, Hemoglobin 6.7*L, Hematocrit 24L , Mean Corpuscular Volume 75L, Mean Corpuscular Hemoglobin 21L, Mean Corpuscular Hemoglobin Concent 28L, Red Cell Distribution Width 18.0H, Platelet Count 436H, Mean Platelet Volume 9.9, Immature Granulocyte % (Auto) 2, Neutrophils (%) (Auto) 86H, Lymphocytes (%) (Auto) 6L, Monocytes (%) (Auto) 6, Eosinophils (%) (Auto) 0, Basophils (%) (Auto) 0, Neutrophils # (Auto) 18.2H, Lymphocytes # (Auto) 1.3, Monocytes # (Auto) 1.3H, Eosinophils # (Auto) 0.0, Basophils # (Auto) 0.0, Immature Granulocyte # (Auto) 0.4H, Neutrophils % (Manual) 69, Lymphocytes % (Manual) 11, Monocytes % (Manual) 11, Eosinophils % (Manual) 0, Basophils % (Manual) 0, Myelocytes % 1, Band Neutrophils 8, Nucleated Red Blood Cells 1, Hypochromasia SLIGHT, Anisocytosis SLIGHT, Elliptocytes SLIGHT, Prothrombin Time 14.8H, INR Comment 1.1, Activated Partial Thromboplast Time 38H , Sodium Level 121*L, Potassium Level 4.9, Chloride Level 81L, Carbon Dioxide Level 20L, Anion Gap 20H, Blood Urea Nitrogen 21H, Creatinine 1.28, Estimat Glomerular Filtration Rate 58, BUN/Creatinine Ratio 16, Glucose Level 238H, Calcium Level 8.4L, Corrected Calcium 8.7, Magnesium Level 1.7, Total Bilirubin 1.0, Aspartate Amino Transf (AST/SGOT) 62H, Alanine Aminotransferase (ALT/SGPT) 96H, Alkaline Phosphatase 78, Troponin I 0.194H, Total Protein 6.8, Albumin 3.6 05/17/22 12:00: Influenza Type A (RT-PCR) Not Detected, Influenza Type B (RT-PCR) Not Detected, SARS-CoV-2 RNA (RT-PCR) Not Detected 05/17/22 12:05: Lactic Acid Level 4.03*H 05/17/22 15:39: Lactic Acid Level 2.28*H 05/17/22 17:19: Glucometer 142H 05/17/22 17:30: Lactic Acid Level 8.82*H 05/17/22 19:00: Lactic Acid Level 9.79*H, White Blood Count 26.8H, Red Blood Count 3.22L, Hemoglobin 7.0L, Hematocrit 24L, Mean Corpuscular Volume 75L, Mean Corpuscular Hemoglobin 22L, Mean Corpuscular Hemoglobin Concent 29L, Red Cell Distribution Width 17.9H, Platelet Count 400, Mean Platelet Volume 9.6, Sodium Level 124*L, Potassium Level 5.0, Chloride Level 84L, Carbon Dioxide Level 21, Anion Gap 19H, Blood Urea Nitrogen 25H, Creatinine 1.33H, Estimat Glomerular Filtration Rate 55, BUN/Creatinine Ratio 19, Glucose Level 146H, Calcium Level 8.2L, Corrected Calcium 8.8, Magnesium Level 1.8, Total Bilirubin 0.8, Aspartate Amino Transf (AST/SGOT) 175H, Alanine Aminotransferase (ALT/SGPT) 225H, Alkaline Phosphatase 75, Troponin I 0.900*H, Total Protein 6.1L, Albumin 3.2, Triglycerides Level 50 05/17/22 21:00: Assessment/Plan Assessment/Plan Assessment/Plan Hypotension Sepsis S/P Cardiac Arrest Plan is central line placement, he is on two pressors to keep his BP up and does not have IV access. Family signed consent. SHAWNEE STEPHEN DO May 17, 2022 21:30
--- NOTE | 2022-05-17 21:35 | Progress Note-Post Operative ---
Post-Operative Progess Note Surgeon (s)/Grounds Maintenance Manager (s) Surgeon SHAWNEE STEPHEN DO Grounds Maintenance Manager: none Pre-Operative Diagnosis Hypotension, Venous Insufficiency, Sepsis Post-Operative Diagnosis same Procedure & Operative Findings Date of Procedure 05/17/22 Procedure Performed/Findings Central Line Placement with US assist The patient was in their bed in the ICU, was prepped and draped in the sterile fashion. A surgical pause was performed. Ultrasound was used to locate the internal jugular vein. Once located using an 18 gauge finder needle and watching with the US; the left internal jugular vein was accessed. Dark nonpulsatile blood was withdrawn. The wire was inserted. US assured proper placement. The needle was removed. A [#11] blade scalpel was used to make a stab incision along the guidewire. Dilator sheath was then advanced over the wire using the Seldinger technique and the dilator was removed. The Groshong catheter was inserted over the guide wire using the Seldinger technique. The Groshong wire was removed. The catheter was then accessed in all three ports without difficulty. Good flash of blood was seen and it was then flushed with saline. The catheter was sutured in place with 3-0 silk on a jude needle. The areas were then washed and dried. Sterile dressing was placed over incision. The patient tolerated the procedure well without complication. Anesthesia Type intubated and sedated Estimated Blood Loss Estimated blood loss (mL): scant Specimens/Packing Specimens Removed none SHAWNEE STEPHEN DO May 17, 2022 21:35
[2022-05-17 21:47] LABS: ABG BASE EXCESS 2.1 MMOL/L (-2.5-2.5); ABG OXYGEN SATURATION 99 % (94-100); ABG PCO2 62 MMHG (35-45); ABG PO2 138 MMHG (79-93); ABG TCO2 30.1 MMOL/L (21.0-31.0)
[2022-05-17 21:52] LABS: PATIENT TEMP 37.3; VENTILATOR YES
[2022-05-17 21:53] LABS: ABG PH 7.28 (7.37-7.43)
[2022-05-17 23:06] VITALS: BP 148/52
[2022-05-17 23:12] VITALS: BP 127/53
[2022-05-18] VITALS (7 sets, daily range): BP systolic 110–147; BP diastolic 49–56
[2022-05-18] MEDS: PROPOFOL DRIP (ICU) 100 ML IV SCH ×6 (01:05→23:25)
[2022-05-18] MEDS: CEFEPIME INJECTION 1,000 MG in NS (IVPB) 50 ML IV SCH ×4 (01:06→18:36)
[2022-05-18] MEDS ORDERED: NS IV 500 ML 500 ML IV PRN (01:45)
[2022-05-18] MEDS: NOREPINEPHRINE 8 MG/250 ML 250 ML IV SCH ×3 (01:53→17:04)
[2022-05-18] MEDS ORDERED: RT-ALBUTEROL/IPRATROPIUM 3 ML (DUONEB) VIAL INH PRN ×2 (02:00→03:45)
[2022-05-18] MEDS: EPINEPHrine 1 MG INJECTION 4 MG in NS (IVPB) 246 ML IV SCH ×4 (02:28→23:04)
[2022-05-18 04:36] LABS: BASOPHILS % (AUTO) 0 % (0-10)
[2022-05-18 04:37] LABS: ABG BASE EXCESS 5.8 MMOL/L (-2.5-2.5); ABG OXYGEN SATURATION 94 % (94-100); ABG PCO2 43 MMHG (35-45); ABG PH 7.45 (7.37-7.43); ABG PO2 68 MMHG (79-93); ABG TCO2 31.1 MMOL/L (21.0-31.0)
[2022-05-18 04:38] LABS: EOSINOPHILS # (AUTO) 4.1 10^3/uL (0.0-0.3); EOSINOPHILS % (AUTO) 17 % (0-10); HEMATOCRIT 25 % (40-54); HEMOGLOBIN 7.7 g/dL (13.3-17.7); LYMPHOCYTES # (AUTO) 0.9 10^3/uL (1.0-4.0); LYMPHOCYTES % (AUTO) 4 % (12-44); MEAN CORPUSCULAR HEMOGLOBIN 22 pg (25-34); MEAN CORPUSCULAR HGB CONC 31 g/dL (32-36); MEAN CORPUSCULAR VOLUME 71 fL (80-99); MONOCYTES # (AUTO) 1.5 10^3/uL (0.0-1.0); MONOCYTES % (AUTO) 6 % (0-12); NEUTROPHILS % (AUTO) 73 % (42-75); PLATELET COUNT 381 10^3/uL (130-400); WHITE BLOOD COUNT 24.9 10^3/uL (4.3-11.0)
[2022-05-18 04:39] LABS: ALLENS TEST YES-POS
[2022-05-18 04:40] LABS: INSPIRED O2 40%; PATIENT TEMP 37.3; VENTILATOR YES
[2022-05-18 04:50] LABS: POTASSIUM 4.6 MMOL/L (3.6-5.0)
[2022-05-18 04:51] LABS: CALCIUM 7.9 MG/DL (8.5-10.1)
[2022-05-18 04:53] LABS: TOTAL PROTEIN 5.9 GM/DL (6.4-8.2)
[2022-05-18 04:54] LABS: BILIRUBIN,TOTAL 1.1 MG/DL (0.1-1.0)
[2022-05-18 04:56] LABS: CREATININE SERUM 1.1 MG/DL (0.60-1.30); PHOSPHORUS 2.6 MG/DL (2.3-4.7)
[2022-05-18 04:59] LABS: MAGNESIUM 1.5 MG/DL (1.6-2.4)
[2022-05-18] MEDS: KCL 20 MEQ TAB (K-DUR) PO SCH (05:05)
[2022-05-18] MEDS: POTASSIUM CL 10MEQ/50ML IVPB 50 ML IV SCH (05:05)
[2022-05-18] MEDS: inSUlin ASPART (NovoLOG) 1 UNIT/0.01 ML (CHARGE PER UNIT) SC SCH ×3 (05:06→18:26)
[2022-05-18] MEDS: MAGNESIUM 1 GM/100 ML IVPB 100 ML IV SCH ×2 (05:06→05:48)
--- NOTE | 2022-05-18 06:55 | Occ Therapy Progress Note ---
Therapy Progress Note Pt currently intubated. OT has received orders. OT to monitor pt's status then will initiate treatment when pt is medically stable and able to actively participate in skilled therapy. JORDEN CURRY May 18, 2022 06:55
[2022-05-18] MEDS: RT-ALBUTEROL/IPRATROPIUM 3 ML (DUONEB) VIAL INH SCH ×5 (06:58→22:07)
[2022-05-18] MEDS ORDERED: inSUlin ASPART (NovoLOG) 1 UNIT/0.01 ML (CHARGE PER UNIT) SC SCH (07:00)
--- NOTE | 2022-05-18 07:19 | Progress Note ---
Subjective Date Seen by a Provider: May 18, 2022 Time Seen by a Provider: 06:45 Subjective/Events-last exam patient is currently intubated. His overall parameters regarding his r espiratory status are improving. He received 1 unit of blood last evening. Apparently vasopressors are being decreased with epinephrine drip completely discontinued Focused Exam Lactate Level 05/17/22 21:00: Lactic Acid Level 5.17*H 05/17/22 23:05: Lactic Acid Level 2.73*H 05/18/22 01:00: Lactic Acid Level 1.70 Objective Exam Vital Signs Date Time Temp Pulse Resp B/P (MAP) Pulse Ox O2 Delivery O2 Flow Rate FiO2 05/18/22 06:59 76 22 96 40 05/18/22 06:00 78 21 96 Mechanical Ventilator 40.00 120/48 (72) 05/18/22 05:47 91 134/53 05/18/22 05:14 91 26 95 05/18/22 05:00 80 22 96 Mechanical Ventilator 40.00 123/57 (79) 05/18/22 04:00 82 22 94 Mechanical Ventilator 40.00 134/53 (80) 05/18/22 04:00 40 05/18/22 04:00 93 Mechanical Ventilator 40 05/18/22 03:31 37.3 22 Mechanical Ventilator 40.00 05/18/22 03:25 100 97 05/18/22 03:00 80 22 96 Mechanical Ventilator 50.00 136/56 (82) 05/18/22 02:51 100 22 97 50 05/18/22 02:48 22 Mechanical Ventilator 50.00 05/18/22 02:28 92 130/45 05/18/22 02:00 95 17 94 Mechanical Ventilator 50.00 132/50 (77) 05/18/22 01:53 92 130/45 05/18/22 01:31 37.5 22 Mechanical Ventilator 50.00 05/18/22 01:05 92 130/45 05/18/22 01:00 88 05/18/22 01:00 90 22 96 Mechanical Ventilator 60.00 114/45 (68) 05/18/22 00:33 94 Mechanical Ventilator 60 05/18/22 00:29 60 05/18/22 00:00 92 15 96 Mechanical Ventilator 60.00 132/46 (74) 05/18/22 00:00 Mechanical Ventilator 60.00 05/17/22 23:52 37.4 22 Mechanical Ventilator 80.00 05/17/22 23:12 103 22 98 80 05/17/22 23:06 37.4 107 22 148/52 99 Mechanical Ventilator 80 05/17/22 23:00 96 22 99 Mechanical Ventilator 80.00 145/49 (81) 05/17/22 22:00 100 17 98 Mechanical Ventilator 80.00 138/45 (76) 05/17/22 22:00 22 Mechanical Ventilator 80.00 05/17/22 21:24 37.3 99 18 137/40 99 Mechanical Ventilator 100 05/17/22 21:12 37.1 101 18 134/40 100 Mechanical Ventilator 100 05/17/22 21:00 101 13 127/53 (77) 100 Mechanical Ventilator 100.00 175/45 (88) 05/17/22 20:40 124 119/58 05/17/22 20:38 124 119/58 05/17/22 20:00 103 26 126/51 (76) 99 Mechanical Ventilator 100.00 05/17/22 20:00 Mechanical Ventilator 100 05/17/22 20:00 100 05/17/22 19:37 05/17/22 19:14 124 18 99 100 05/17/22 19:00 123 05/17/22 19:00 37.1 18 Mechanical Ventilator 100.00 05/17/22 19:00 122 30 119/58 (78) 96 Mechanical Ventilator 100.00 05/17/22 19:00 124 119/58 05/17/22 18:50 101 18 124/57 (79) 97 Mechanical Ventilator 100.00 05/17/22 18:40 107 13 131/68 (89) 97 Mechanical Ventilator 100.00 05/17/22 18:35 91 14 209/101 (137) 98 Mechanical Ventilator 100.00 05/17/22 18:35 92 53/41 05/17/22 18:25 92 18 53/41 (45) 97 Mechanical Ventilator 100.00 05/17/22 18:20 95 9 59/25 (36) 94 Mechanical Ventilator 100.00 05/17/22 18:20 95 05/17/22 18:16 104 18 99 100 05/17/22 18:15 96 16 62/38 (46) 100 Mechanical Ventilator 100.00 05/17/22 15:15 36.6 86 22 158/52 98 Nasal Cannula 2.00 2.00 05/17/22 11:14 Nasal Cannula 2.00 05/17/22 10:52 36.6 86 32 100/51 (67) I & O 05/18/22 07:00 Intake Total 2370 ml Output Total 1275 ml Balance 1095 ml Capillary Refill : Greater Than 3 Seconds General Appearance: No Apparent Distress (but he is intubated and sedated) Neck: Supple Respiratory: Crackles Cardiovascular: Regular Rate, Rhythm Gastrointestinal: soft Extremity: No Pedal Edema Skin: Normal Color Results Lab Laboratory Tests 05/17/22 10:58: White Blood Count 21.1H, Red Blood Count 3.13L, Hemoglobin 6.7*L, Hematocrit 24L , Mean Corpuscular Volume 75L, Mean Corpuscular Hemoglobin 21L, Mean Corpuscular Hemoglobin Concent 28L, Red Cell Distribution Width 18.0H, Platelet Count 436H, Mean Platelet Volume 9.9, Immature Granulocyte % (Auto) 2, Neutrophils (%) (Auto) 86H, Lymphocytes (%) (Auto) 6L, Monocytes (%) (Auto) 6, Eosinophils (%) (Auto) 0, Basophils (%) (Auto) 0, Neutrophils # (Auto) 18.2H, Lymphocytes # (Auto) 1.3, Monocytes # (Auto) 1.3H, Eosinophils # (Auto) 0.0, Basophils # (Auto) 0.0, Immature Granulocyte # (Auto) 0.4H, Neutrophils % (Manual) 69, Lymphocytes % (Manual) 11, Monocytes % (Manual) 11, Eosinophils % (Manual) 0, Basophils % (Manual) 0, Myelocytes % 1, Band Neutrophils 8, Nucleated Red Blood Cells 1, Hypochromasia SLIGHT, Anisocytosis SLIGHT, Elliptocytes SLIGHT, Prothrombin Time 14.8H, INR Comment 1.1, Activated Partial Thromboplast Time 38H , Sodium Level 121*L, Potassium Level 4.9, Chloride Level 81L, Carbon Dioxide Level 20L, Anion Gap 20H, Blood Urea Nitrogen 21H, Creatinine 1.28, Estimat Glomerular Filtration Rate 58, BUN/Creatinine Ratio 16, Glucose Level 238H, Calcium Level 8.4L, Corrected Calcium 8.7, Magnesium Level 1.7, Total Bilirubin 1.0, Aspartate Amino Transf (AST/SGOT) 62H, Alanine Aminotransferase (ALT/SGPT) 96H, Alkaline Phosphatase 78, Troponin I 0.194H, Total Protein 6.8, Albumin 3.6 05/17/22 12:00: Influenza Type A (RT-PCR) Not Detected, Influenza Type B (RT-PCR) Not Detected, SARS-CoV-2 RNA (RT-PCR) Not Detected 05/17/22 12:05: Lactic Acid Level 4.03*H 05/17/22 15:39: Lactic Acid Level 2.28*H 05/17/22 17:19: Glucometer 142H 05/17/22 17:30: Lactic Acid Level 8.82*H 05/17/22 19:00: Lactic Acid Level 9.79*H, White Blood Count 26.8H, Red Blood Count 3.22L, Hemoglobin 7.0L, Hematocrit 24L, Mean Corpuscular Volume 75L, Mean Corpuscular Hemoglobin 22L, Mean Corpuscular Hemoglobin Concent 29L, Red Cell Distribution Width 17.9H, Platelet Count 400, Mean Platelet Volume 9.6, Sodium Level 124*L, Potassium Level 5.0, Chloride Level 84L, Carbon Dioxide Level 21, Anion Gap 19H, Blood Urea Nitrogen 25H, Creatinine 1.33H, Estimat Glomerular Filtration Rate 55, BUN/Creatinine Ratio 19, Glucose Level 146H, Calcium Level 8.2L, Corrected Calcium 8.8, Magnesium Level 1.8, Total Bilirubin 0.8, Aspartate Amino Transf (AST/SGOT) 175H, Alanine Aminotransferase (ALT/SGPT) 225H, Alkaline Phosphatase 75, Troponin I 0.900*H, Total Protein 6.1L, Albumin 3.2, Triglycerides Level 50 05/17/22 21:00: Lactic Acid Level 5.17*H 05/17/22 21:40: Blood Gas Puncture Site RIGHT RADIAL, Blood Gas Patient Temperature 37.3, Arterial Blood pH 7.28*L, Arterial Blood Partial Pressure CO2 62H, Arterial Blood Partial Pressure O2 138H, Arterial Blood HCO3 28H, Arterial Blood Total CO 2 30.1, Arterial Blood Oxygen Saturation 99, Arterial Blood Base Excess 2.1, Chuck Test NA, Blood Gas Ventilator Setting YES, Blood Gas Inspired Oxygen UNK 05/17/22 23:05: Lactic Acid Level 2.73*H 05/18/22 01:00: Lactic Acid Level 1.70 05/18/22 01:01: Glucometer 221H 05/18/22 04:10: Blood Gas Puncture Site RIGHT RADIAL, Blood Gas Patient Temperature 37.3, Arterial Blood pH 7.45H, Arterial Blood Partial Pressure CO2 43, Arterial Blood Partial Pressure O2 68L, Arterial Blood HCO3 30H, Arterial Blood Total CO2 31.1H , Arterial Blood Oxygen Saturation 94, Arterial Blood Base Excess 5.8H, Chuck Test YES-POS, Blood Gas Ventilator Setting YES, Blood Gas Inspired Oxygen 40% 05/18/22 04:20: White Blood Count 24.9H, Red Blood Count 3.44L, Hemoglobin 7.7L, Hematocrit 25L, Mean Corpuscular Volume 71L, Mean Corpuscular Hemoglobin 22L, Mean Corpuscular Hemoglobin Concent 31L, Red Cell Distribution Width 18.9H, Platelet Count 381, Mean Platelet Volume 9.0, Immature Granulocyte % (Auto) 1, Neutrophils (%) (Auto) 73, Lymphocytes (%) (Auto) 4L, Monocytes (%) (Auto) 6, Eosinophils (%) (Auto) 17H, Basophils (%) (Auto) 0, Neutrophils # (Auto) 18.0H, Lymphocytes # (Auto) 0.9L, Monocytes # (Auto) 1.5H, Eosinophils # (Auto) 4.1H, Basophils # (Auto) 0.0, Immature Granulocyte # (Auto) 0.2H, Sodium Level 123*L, Potassium Level 4.6, Chloride Level 85L, Carbon Dioxide Level 25, Anion Gap 13, Blood Urea Nitrogen 26H, Creatinine 1.10, Estimat Glomerular Filtration Rate 70, BUN/Creatinine Ratio 24, Glucose Level 174H, Calcium Level 7.9L, Corrected Calcium 8.7, Phosphorus Level 2.6, Magnesium Level 1.5L, Total Bilirubin 1.1H, Aspartate Amino Transf (AST/SGOT) 171H, Alanine Aminotransferase (ALT/SGPT) 228H , Alkaline Phosphatase 66, Total Protein 5.9L, Albumin 3.0L Assessment/Plan Assessment/Plan Assess & Plan/Chief Complaint 1. Sepsis--CODE BLUE on floor on day of admission -He was started on cefepime in the emergency department -IV fluids continue -eICU consultation 05/18 -White blood cell count noted to be elevated but a lot of this may have been stress from the code as well -He continues on IV fluids 2. Pneumonia -Cefepime 05/18 -day #2 cefepime 1000 mg IV every 6 hours 3. Hyponatremia -We will follow sodium in a.m. since he has now been receiving IV fluids 05/18 -Hyponatremic continues this may have been long-standing 4. Anemia -Plan on transfusion with 2 units and recheck CBC 05/18 -Patient received only 1 unit last evening -Appreciate all of the eICU help 5. Elevated troponin -Cardiology consultation 05/18 -appreciate Dr. Driscoll consultation and input 6. Malignant melanoma -Recently diagnosed 7. Diabetes mellitusknown 05/18 -he is currently on sliding scale insulin 8. Hyperlipidemia 9. History of hypertension currently hypotensive however 05/18 -Blood pressure overall is improved as of this morning Clinical Quality Measures Admission Status Admission Dx 1. Sepsis 2. Pneumonia 3. Hyponatremia 4. Anemia 5. Malignant melanoma 6. Diabetes mellitusknown 7. Hyperlipidemia 8. History of hypertension currently hypotensive however STEPHANIE IRBY MD May 18, 2022 07:19
--- NOTE | 2022-05-18 07:22 | Physical Therapy Progress Note ---
Therapy Progress Note S/p code blue. Patient is sedated and intubated per report. PT will monitor patient status and initiate treatment when patient is deemed medically stable and able to actively participate with skilled therapy. ANDREY TAVERA PT May 18, 2022 07:22
--- NOTE | 2022-05-18 08:15 | Diagnostic Imaging Report ---
EXAM: CHEST 1 VIEW, AP/PA ONLY INDICATION: Respiratory failure. COMPARISON: Chest radiograph 05/17/2022. FINDINGS: Normal heart size and central pulmonary vascularity. Increasing airspace consolidation the right lung base. No pleural effusion or pneumothorax. No acute osseous findings. ETT tip midway between at the level of the clavicles and bernard. Right IJ CVC tip lower SVC. Left IJ CVC tip mid to lower SVC. IMPRESSION: 1. Increasing airspace consolidation in the right lung base suspicious for pneumonitis, possibly atelectasis. 2. Stable support lines as above. Dictated by: Dictated on workstation # [id number]
[2022-05-18] MEDS: ENOXAPARIN 40 MG/0.4 ML (LOVENOX) SYR SC SCH (08:17)
[2022-05-18] MEDS: PANTOPRAZOLE 40 MG (PROTONIX) VIAL IV SCH (08:17)
--- NOTE | 2022-05-18 09:28 | Cardiology Progress Note ---
Subjective Date Seen by Provider: May 18, 2022 Time Seen by Provider: 09:26 Subjective/Events-last exam Patient is sedated and intubated Review of Systems General: Other (Unable to provide review of system) Focused Exam Lactate Level 05/17/22 21:00: Lactic Acid Level 5.17*H 05/17/22 23:05: Lactic Acid Level 2.73*H 05/18/22 01:00: Lactic Acid Level 1.70 Objective-Cardiology Exam Last Set of Vital Signs Vital Signs 05/18/22 05/18/22 05/18/22 05/18/22 06:59 07:29 08:19 09:00 Temp 37.0 Pulse 78 Resp 17 B/P (MAP) 116/72 Pulse Ox 96 O2 Delivery Mechanical Ventilator O2 Flow Rate 40.00 FiO2 40 I&O Intake and Output 05/18/22 00:00 Intake Total 1840 ml Output Total 250 ml Balance 1590 ml Intake Oral 0 ml IV Total 1300 ml Other 540 ml Output Urine Total 250 ml Daily Weight Change No General: Other (Sedated and intubated) HEENT: Atraumatic Neck: Supple Lungs: Normal Air Movement, Other (Bilateral rhonchi) Heart: Regular Rate, Normal S1, Normal S2 Abdomen: Normal Bowel Sounds Extremities: No Edema, Other Skin: No Rashes Neuro: Other (Sedated and intubated) Psych/Mental Status: Other (Sedated and intubated) Results Lab Laboratory Tests 05/17/22 10:58 05/17/22 19:00 05/18/22 04:20 A/P-Cardiology Admission Diagnosis Acute respiratory failure Severe hypoxemia Septic shock COPD Assessment/Plan Acute respiratory failure, ventilator dependent, progressed with pulmonary infiltrate. Receiving cefepime Ventilator dependent, down to 40% FiO2. Continue to attempt to wean him off. Status post cardiac arrest secondary to bradycardia then asystole, most probably secondary to hypoxemia. No sign of acute myocardial infarction on his EKG Elevated troponin, type II myocardial infarction probably secondary to severe hypoxemia and severe anemia. Sepsis with septic shock. Blood pressure is improving, currently on Levophed. Continue to wean him off pressors Hyponatremia, improving slowly. 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 2D echo was done at bedside showing normal LV size with mild hypokinesia, ejection fraction 45 to 50%. Pulmonary artery pressure appears to be 25 to 30 mmHg. No signs of cardiogenic shocks. Lactic acidosis, persistent secondary to sepsis, worsening postcode Better today Acute shock liver, elevated liver enzymes after cardiac arrest. Acute renal failure, probably secondary to sepsis and hypoxemia Electrolytes imbalance. Severe anemia, continue to monitor H&H ANH GALEANO MD May 18, 2022 09:28
--- NOTE | 2022-05-18 09:33 | Tele-ICU Progress Note ---
Subjective Date Seen by a Provider: May 18, 2022 Time Seen by a Provider: 09:33 Subjective/Events-last exam (Tele-ICU Physician , Progress Note ) Service provided via interactive audio and video telecommunications E-CARE system to a patient admitted to ICU bed in [facility]. Available chart/ vitals / labs / Images reviewed Video assessment done using teleICU camera, rest of exam as per RN Discussed with RN Events overnight : Afebrile hemodynamically stable Respiratory - I/O =pos Drips: ns 30 Pressors- levo 0.17 VENT SETTINGS and ABG reviewed Sedation: RASS discussed with RN , propofol 30 , reported to follow commands off sedation NOT CANDIDATE for SBTreviewed possible contraindications including Cardiovascular Stability /Sedation Score / FI02/PEEP / ABG / CXR/ secretions Consultants: Hospital course: 05/17 -admitted with PNA from ER to medical floor --> card arrest , intubated --> to ICU , s/p transfuse 1 u Prbc A/P Cardiac arrest 05/17- s/p ACLS x 2 rounds ( bradycardia then asystole) - intubated on medical floor 05/17 - + secretions ETT- cont nebs Acute resp failure - intubated post arrest 05/17 -AC 22 tv 500 40% peep 5 - consider SBT tomorrow , possible extubation tomorrow Shock -septic most likely - OFF epi gtt , levo gtt to wean -s/p transfusion 1 u Prbc RIGHT PNA ( with fever and leukocytosis) - NEG covid and flu - cont cefepime -urine and blood cx pending s/p fall AERIAL PHOTOGRAMMETRIST x2 - CTH neg Anemia ( chronic ) - hb 6.7 -- transfused 1 u Prbc 05/17 - Hb stable now , no active bleeding Hyponatremia 121 on admission ( baseline Na 130 , last Na 126 on 05/09) - follow closely Elv trop - ECHO 06/17 EF 45 % RVSP 25 Elev LFT - mild on admission , now elev with ischemic hepatitis post arrest - follow Metastatic melanoma ( lesion of the left upper chest wall - Tx with immunotherapy COPD, - oxygen 2-3 L home AERIAL PHOTOGRAMMETRIST DM II -ISS Starting TF today Lines : LEFT IG 05/17 , alsi has right internal jugular Groshong implantable catheter 03/2022 , (Central Line Necessity Reviewed) Larson: 05/17 OG: Nutrition: npo , Analgesia: Anxiety/ delirium- na VTE Prophylaxis: isac 40 qd Stress Ulcer Prophylaxis: ppi Plans in collaboration with bedside consultants and IM MDs. Discussed with RN to reach out if any questions or concerns A total of 40 minutes of critical care time was devoted to this patient today, required to treat and/or prevent further deterioration of critical care condition ( as above ) I am remotely monitoring this patient from another state. I am unable to do the bedside exam, and history/physical and pertinent information is taken from other notes in the computer and bedside staff. . Sepsis Event Evaluation Height, Weight, BMI Height: '" Weight: lbs. oz. kg; 27.50 BMI Method: Focused Exam Lactate Level 05/17/22 21:00: Lactic Acid Level 5.17*H 05/17/22 23:05: Lactic Acid Level 2.73*H 05/18/22 01:00: Lactic Acid Level 1.70 Exam Exam Patient acknowledged, consented, and participated in this virtual visit which was conducted using real time audio/video Vital Signs Date Time Temp Pulse Resp B/P (MAP) Pulse Ox O2 Delivery O2 Flow Rate FiO2 05/18/22 09:00 78 17 96 Mechanical Ventilator 40.00 133/82 (99) 05/18/22 08:19 76 116/72 05/18/22 08:00 71 11 96 Mechanical Ventilator 40.00 124/57 (79) 05/18/22 07:29 37.0 05/18/22 07:00 80 05/18/22 07:00 75 24 96 Mechanical Ventilator 40.00 129/50 (76) 05/18/22 06:59 76 22 96 40 05/18/22 06:00 78 21 96 Mechanical Ventilator 40.00 120/48 (72) 05/18/22 05:47 91 134/53 05/18/22 05:14 91 26 95 05/18/22 05:00 80 22 96 Mechanical Ventilator 40.00 123/57 (79) 05/18/22 04:00 82 22 94 Mechanical Ventilator 40.00 134/53 (80) 05/18/22 04:00 40 05/18/22 04:00 93 Mechanical Ventilator 40 05/18/22 03:31 37.3 22 Mechanical Ventilator 40.00 05/18/22 03:25 100 97 05/18/22 03:00 80 22 96 Mechanical Ventilator 50.00 136/56 (82) 05/18/22 02:51 100 22 97 50 05/18/22 02:48 22 Mechanical Ventilator 50.00 05/18/22 02:28 92 130/45 05/18/22 02:00 95 17 94 Mechanical Ventilator 50.00 132/50 (77) 05/18/22 01:53 92 130/45 05/18/22 01:31 37.5 22 Mechanical Ventilator 50.00 05/18/22 01:05 92 130/45 05/18/22 01:00 88 05/18/22 01:00 90 22 96 Mechanical Ventilator 60.00 114/45 (68) 05/18/22 00:33 94 Mechanical Ventilator 60 05/18/22 00:29 60 05/18/22 00:00 92 15 96 Mechanical Ventilator 60.00 132/46 (74) 05/18/22 00:00 Mechanical Ventilator 60.00 05/17/22 23:52 37.4 22 Mechanical Ventilator 80.00 05/17/22 23:12 103 22 98 80 05/17/22 23:06 37.4 107 22 148/52 99 Mechanical Ventilator 80 05/17/22 23:00 96 22 99 Mechanical Ventilator 80.00 145/49 (81) 05/17/22 22:00 100 17 98 Mechanical Ventilator 80.00 138/45 (76) 05/17/22 22:00 22 Mechanical Ventilator 80.00 05/17/22 21:24 37.3 99 18 137/40 99 Mechanical Ventilator 100 05/17/22 21:12 37.1 101 18 134/40 100 Mechanical Ventilator 100 05/17/22 21:00 101 13 127/53 (77) 100 Mechanical Ventilator 100.00 175/45 (88) 05/17/22 20:40 124 119/58 05/17/22 20:38 124 119/58 05/17/22 20:00 103 26 126/51 (76) 99 Mechanical Ventilator 100.00 05/17/22 20:00 Mechanical Ventilator 100 05/17/22 20:00 100 05/17/22 19:37 05/17/22 19:14 124 18 99 100 05/17/22 19:00 123 05/17/22 19:00 37.1 18 Mechanical Ventilator 100.00 05/17/22 19:00 122 30 119/58 (78) 96 Mechanical Ventilator 100.00 05/17/22 19:00 124 119/58 05/17/22 18:50 101 18 124/57 (79) 97 Mechanical Ventilator 100.00 05/17/22 18:40 107 13 131/68 (89) 97 Mechanical Ventilator 100.00 05/17/22 18:35 91 14 209/101 (137) 98 Mechanical Ventilator 100.00 05/17/22 18:35 92 53/41 05/17/22 18:25 92 18 53/41 (45) 97 Mechanical Ventilator 100.00 05/17/22 18:20 95 9 59/25 (36) 94 Mechanical Ventilator 100.00 05/17/22 18:20 95 05/17/22 18:16 104 18 99 100 05/17/22 18:15 96 16 62/38 (46) 100 Mechanical Ventilator 100.00 05/17/22 16:35 Nasal Cannula 2.00 05/17/22 15:15 36.6 86 22 158/52 98 Nasal Cannula 2.00 2.00 05/17/22 11:14 Nasal Cannula 2.00 05/17/22 10:52 36.6 86 32 100/51 (67) I & O 05/18/22 07:00 Intake Total 2370 ml Output Total 1275 ml Balance 1095 ml Height & Weight Height: '" Weight: lbs. oz. kg; 27.50 BMI Method: General Appearance: No Apparent Distress (but he is intubated and sedated) HEENT: PERRL/EOMI Neck: Supple Respiratory: Crackles Cardiovascular: Regular Rate, Rhythm Capillary Refill: Greater Than 3 Seconds Gastrointestinal: soft Extremity: No Pedal Edema Neurologic/Psychiatric: Other (Noncommunicating due to intubation) Skin: Normal Color Results Lab Laboratory Tests 05/17/22 10:58 05/17/22 19:00 05/18/22 04:20 Assessment/Plan Assessment/Plan 1 JINA GREENFIELD MD May 18, 2022 09:33
[2022-05-18] MEDS ORDERED: NS (IVPB) 50 ML ONE (13:30)
[2022-05-18] MEDS ORDERED: NS IV 1000 ML 1,000 ML IV ONE (14:15)
[2022-05-18] MEDS: fentaNYL INJ 100 MCG/2 ML AMP IVP PRN (15:42)
[2022-05-18] MEDS ORDERED: ATOR40TA70 PO (16:10)
[2022-05-18] MEDS ORDERED: FERR325T24 PO (16:10)
[2022-05-18] MEDS ORDERED: INSU100I10 SC (16:10)
[2022-05-18] MEDS ORDERED: ASPI-1238 PO (16:10)
[2022-05-18 18:17] LABS: HEMOGLOBIN 7.4 g/dL (13.3-17.7)
[2022-05-18 18:25] LABS: POTASSIUM 3.8 MMOL/L (3.6-5.0)
[2022-05-18 18:26] LABS: CALCIUM 7.5 MG/DL (8.5-10.1)
[2022-05-18 18:30] LABS: CREATININE SERUM 0.95 MG/DL (0.60-1.30)
[2022-05-18] MEDS: NS IV 1000 ML 1,000 ML IV SCH (20:22)
[2022-05-19] VITALS (10 sets, daily range): BP systolic 112–137; BP diastolic 34–51
[2022-05-19] MEDS ORDERED: NS (IVPB) 50 ML ONE (00:25)
[2022-05-19] MEDS: inSUlin ASPART (NovoLOG) 1 UNIT/0.01 ML (CHARGE PER UNIT) SC SCH ×5 (00:55→23:54)
[2022-05-19] MEDS: CEFEPIME INJECTION 1,000 MG in NS (IVPB) 50 ML IV SCH ×4 (00:55→19:50)
[2022-05-19] MEDS: RT-ALBUTEROL/IPRATROPIUM 3 ML (DUONEB) VIAL INH SCH ×6 (02:56→21:43)
[2022-05-19] MEDS: NS IV 1000 ML 1,000 ML IV SCH ×3 (05:36→21:03)
[2022-05-19 05:58] LABS: ABG OXYGEN SATURATION 98 % (94-100); ABG PCO2 41 MMHG (35-45); ABG PH 7.44 (7.37-7.43); ABG PO2 86 MMHG (79-93); ABG TCO2 29.2 MMOL/L (21.0-31.0)
[2022-05-19 06:00] LABS: ALLENS TEST YES-POS; PATIENT TEMP 37; VENTILATOR YES
[2022-05-19] MEDS: MAGNESIUM 1 GM/100 ML IVPB 100 ML IV SCH (06:00)
[2022-05-19] MEDS: POTASSIUM CL 10MEQ/50ML IVPB 50 ML IV SCH (06:00)
[2022-05-19] MEDS: KCL 20 MEQ TAB (K-DUR) PO SCH (06:00)
[2022-05-19] MEDS: EPINEPHrine 1 MG INJECTION 4 MG in NS (IVPB) 246 ML IV SCH ×3 (06:20→20:32)
[2022-05-19] MEDS: PROPOFOL DRIP (ICU) 100 ML IV SCH ×5 (06:25→23:54)
--- NOTE | 2022-05-19 06:34 | Progress Note - Hospitalist ---
Subjective HPI/CC On Admission Date Seen by Provider: May 19, 2022 Time Seen by Provider: 11:00 Subjective/Events-last exam Patient intubated Transfusing 1 unit of blood hemoglobin 6.7 Reviewed meds and labs Focused Exam Lactate Level 05/17/22 21:00: Lactic Acid Level 5.17*H 05/17/22 23:05: Lactic Acid Level 2.73*H 05/18/22 01:00: Lactic Acid Level 1.70 Objective Exam Vital Signs Vital Signs Date Time Temp Pulse Resp B/P (MAP) Pulse Ox O2 Delivery O2 Flow Rate FiO2 05/20/22 05:00 89 22 97 Mechanical Ventilator 35.00 129/41 (70) 05/20/22 04:00 35 05/20/22 03:39 37.0 Capillary Refill : Greater Than 3 Seconds General Appearance: No Apparent Distress, WD/WN, Obese, Other (Sedated and intubated) Respiratory: Lungs Clear, Normal Breath Sounds Cardiovascular: Regular Rate, Rhythm Results/Procedures Lab Laboratory Tests 05/19/22 08:30 05/19/22 15:35 05/20/22 02:54 Patient resulted labs reviewed. Assessment/Plan Assessment and Plan Assess & Plan/Chief Complaint 1. Sepsis--CODE BLUE on floor on day of admission -He was started on cefepime in the emergency department -IV fluids continue -eICU consultation 05/18 -White blood cell count noted to be elevated but a lot of this may have been stress from the code as well -He continues on IV fluids 2. Pneumonia -Cefepime 05/18 -day #3 cefepime 1000 mg IV every 6 hours 3. Hyponatremia -We will follow sodium in a.m. since he has now been receiving IV fluids 05/18 -Hyponatremic continues this may have been long-standing 4. Anemia -Plan on transfusion with 3 units and recheck CBC 05/20 -Patient received only 1 unit last evening -Appreciate all of the eICU help 5. Elevated troponin -Cardiology consultation 05/18 -appreciate Dr. Driscoll consultation and input 6. Malignant melanoma -Recently diagnosed 7. Diabetes mellitusknown 05/18 -he is currently on sliding scale insulin 8. Hyperlipidemia 9. History of hypertension currently hypotensive however 05/18 -Blood pressure overall is improved as of this morning CELIA TODD DO May 19, 2022 06:33
--- NOTE | 2022-05-19 07:29 | Diagnostic Imaging Report ---
INDICATION: Pneumonia COMPARISON: 05/18/2022. TECHNIQUE: Single frontal radiograph of the chest dated 05/19/2022. FINDINGS: Endotracheal tube, enteric catheter, right-sided Port-A-Cath, and left IJ central venous catheter are stable. The cardiac silhouette is stable. No significant pulmonary vascular congestion. Right greater than left pulmonary opacities are again identified, appearing stable from the prior examination. Tiny left basilar pleural effusion, slightly increased since the prior exam with no acute osseous abnormality. IMPRESSION: Slightly increased small left basilar pleural effusion. Otherwise, similar examination including right greater than left infiltrates within the lung bases with unchanged lines and tubes. Dictated by: Dictated on workstation # [id number]
[2022-05-19] MEDS ORDERED: VANCOMYCIN INJECTION 0.1 MG in NS (IVPB) 250 ML IV SCH (08:30)
--- NOTE | 2022-05-19 08:37 | Tele-ICU Progress Note ---
Subjective Date Seen by a Provider: May 19, 2022 Time Seen by a Provider: 08:37 Subjective/Events-last exam (Tele-ICU Physician , consultation) Available chart/ vitals / labs / Images reviewed H&P is from ER notes Patient's information available about PMH, allergy reviewed in EMR. ROS as per chart and RN report Video assessment done using teleICU camera, rest of exam as per RN Discussed with RN. Patient with a history of multiple myeloma with metastasis received chemotherapy admitted with pneumonia and subsequently had a cardiac arrest requiring resuscitation and intubation. Currently he is on mechanical ventilation, low- dose Levophed. Receiving normal saline at 125 cc/h. Upon admission he has a hyponatremia currently sodium increase it to 147. His hemoglobin dropped to 6.7 g and he is going to receive 1 unit of packed red blood cells. Blood cultures grew gram-positive cocci in clusters suggestive of staph. His current vent settings are 22/500/35/5. Impression 1. Possible staph sepsis and septic shock 2. Status post cardiopulmonary arrest secondary to the above 3. History of multiple myeloma with metastasis 3. Acute and chronic anemia secondary to malignancy and infection requiring packed red blood cell infusion 4. Acute hypoxic respiratory failure secondary to pneumonia and sepsis currently not ready for spontaneous breathing trial. Recommendations 1. 1 unit of packed red blood cell infusion and recheck his hemoglobin lateral. 2. Continue mechanical ventilatory support 3. Try to wean Levophed as much as possible 4. Decrease IV fluids to 75 cc/h 5. Increase in her troponin probably due to stress being followed by cardiology 6. DVT prophylaxis and ulcer prophylaxis. 7. We will continue cefepime and add vancomycin. Sepsis Event Evaluation Height, Weight, BMI Height: '" Weight: lbs. oz. kg; 28.48 BMI Method: Focused Exam Lactate Level 05/17/22 21:00: Lactic Acid Level 5.17*H 05/17/22 23:05: Lactic Acid Level 2.73*H 05/18/22 01:00: Lactic Acid Level 1.70 Exam Exam Patient acknowledged, consented, and participated in this virtual visit which was conducted using real time audio/video Vital Signs Date Time Temp Pulse Resp B/P (MAP) Pulse Ox O2 Delivery O2 Flow Rate FiO2 05/19/22 08:00 75 14 96 Mechanical Ventilator 40.00 116/35 (62) 05/19/22 08:00 37.1 05/19/22 07:00 80 05/19/22 07:00 78 18 96 Mechanical Ventilator 40.00 111/37 (61) 05/19/22 06:47 89 22 96 35 05/19/22 06:00 75 23 97 Mechanical Ventilator 40.00 125/40 (68) 05/19/22 05:00 78 22 97 Mechanical Ventilator 40.00 118/42 (67) 05/19/22 05:00 96 28 94 05/19/22 04:00 96 Mechanical Ventilator 40 05/19/22 04:00 40 05/19/22 04:00 77 22 96 Mechanical Ventilator 40.00 110/41 (64) 05/19/22 03:00 80 22 96 Mechanical Ventilator 40.00 102/39 (60) 05/19/22 02:56 80 22 97 40 05/19/22 02:00 98 22 98 Mechanical Ventilator 40.00 121/47 (71) 05/19/22 01:00 81 05/19/22 01:00 79 22 98 Mechanical Ventilator 40.00 120/47 (71) 05/19/22 00:00 40 05/19/22 00:00 84 22 97 Mechanical Ventilator 40.00 126/44 (71) 05/18/22 23:59 96 Mechanical Ventilator 40 05/18/22 23:00 88 21 97 Mechanical Ventilator 40.00 136/51 (79) 05/18/22 22:07 120 22 97 40 05/18/22 22:00 85 22 97 Mechanical Ventilator 40.00 143/55 (84) 05/18/22 21:00 89 23 96 Mechanical Ventilator 40.00 144/49 (80) 05/18/22 20:00 40 05/18/22 20:00 92 22 95 Mechanical Ventilator 40.00 154/50 (84) 05/18/22 20:00 97 Mechanical Ventilator 40 05/18/22 19:00 87 19 94 Mechanical Ventilator 40.00 130/52 (78) 05/18/22 19:00 92 05/18/22 18:58 87 24 94 40 05/18/22 18:35 86 142/49 05/18/22 18:00 86 22 94 Mechanical Ventilator 40.00 142/49 (80) 05/18/22 17:04 85 134/46 05/18/22 17:04 85 134/46 05/18/22 17:00 93 27 95 Mechanical Ventilator 40.00 143/51 (81) 05/18/22 16:00 85 27 95 Mechanical Ventilator 40.00 134/46 (75) 05/18/22 16:00 95 Mechanical Ventilator 40 05/18/22 16:00 85 134/46 05/18/22 16:00 40 05/18/22 15:26 92 125/45 05/18/22 15:24 37.6 05/18/22 15:00 92 15 95 Mechanical Ventilator 40.00 125/45 (71) 05/18/22 14:32 92 24 94 40 05/18/22 14:00 87 22 95 Mechanical Ventilator 40.00 118/46 (70) 05/18/22 13:00 85 22 95 Mechanical Ventilator 40.00 150/53 (85) 05/18/22 13:00 88 05/18/22 12:15 94 Mechanical Ventilator 40 05/18/22 12:00 81 12 96 Mechanical Ventilator 40.00 145/50 (81) 05/18/22 12:00 40 05/18/22 11:56 77 144/54 05/18/22 11:56 36.7 05/18/22 11:21 77 22 96 40 05/18/22 11:07 78 106/47 05/18/22 11:00 78 18 97 Mechanical Ventilator 40.00 144/53 (83) 05/18/22 10:00 85 22 96 Mechanical Ventilator 40.00 129/55 (79) 05/18/22 09:50 77 144/54 05/18/22 09:00 78 17 96 Mechanical Ventilator 40.00 133/82 (99) I & O 05/19/22 07:00 Intake Total 3780 ml Output Total 2185 ml Balance 1595 ml Height & Weight Height: '" Weight: lbs. oz. kg; 28.48 BMI Method: General Appearance: No Apparent Distress (but he is intubated and sedated) HEENT: PERRL/EOMI Neck: Supple Respiratory: Crackles Cardiovascular: Regular Rate, Rhythm Capillary Refill: Greater Than 3 Seconds Gastrointestinal: soft Extremity: No Pedal Edema Neurologic/Psychiatric: Other (Noncommunicating due to intubation) Skin: Normal Color Results Lab Laboratory Tests 05/17/22 10:58 05/17/22 19:00 05/18/22 04:20 05/18/22 18:09 05/19/22 04:50 Assessment/Plan Assessment/Plan as above Critical Care: Ventilator Management Time spent with patient (mins): 32 JELENA ISAAC MD May 19, 2022 08:37
[2022-05-19 08:41] LABS: BASOPHILS % (AUTO) 0 % (0-10); EOSINOPHILS % (AUTO) 0 % (0-10); HEMATOCRIT 22 % (40-54); LYMPHOCYTES # (AUTO) 0.7 10^3/uL (1.0-4.0); LYMPHOCYTES % (AUTO) 5 % (12-44); MEAN CORPUSCULAR HEMOGLOBIN 22 pg (25-34); MEAN CORPUSCULAR HGB CONC 31 g/dL (32-36); MEAN CORPUSCULAR VOLUME 72 fL (80-99); MEAN PLATELET VOLUME 8.9 fL (9.0-12.2); MONOCYTES # (AUTO) 0.7 10^3/uL (0.0-1.0); MONOCYTES % (AUTO) 6 % (0-12); NEUTROPHILS # (AUTO) 11.5 10^3/uL (1.8-7.8); NEUTROPHILS % (AUTO) 88 % (42-75); PLATELET COUNT 278 10^3/uL (130-400); WHITE BLOOD COUNT 13.1 10^3/uL (4.3-11.0)
[2022-05-19] MEDS: ENOXAPARIN 40 MG/0.4 ML (LOVENOX) SYR SC SCH (08:55)
[2022-05-19] MEDS: PANTOPRAZOLE 40 MG (PROTONIX) VIAL IV SCH (08:55)
[2022-05-19] MEDS ORDERED: VANCOMYCIN 1,750 MG/NS 500 ML IVPB IV NR ×2 (09:00)
[2022-05-19 09:11] LABS: ALBUMIN 2.5 GM/DL (3.2-4.5); BILIRUBIN,TOTAL 0.9 MG/DL (0.1-1.0); CALCIUM 7.2 MG/DL (8.5-10.1); CREATININE SERUM 0.98 MG/DL (0.60-1.30); POTASSIUM 3.6 MMOL/L (3.6-5.0); TOTAL PROTEIN 5.2 GM/DL (6.4-8.2)
[2022-05-19 09:12] LABS: HEMOGLOBIN 6.7 g/dL (13.3-17.7)
[2022-05-19 09:19] LABS: BAND NEUTROPHILS 1 %; BASOPHILS % (MANUAL) 0 %; EOSINOPHILS % (MANUAL) 0 %; HYPOCHROMASIA MARKED; LYMPHOCYTES % (MANUAL) 4 %; MONOCYTES % (MANUAL) 2 %; NEUTROPHILS % (MANUAL) 93 %; POLYCHROMASIA MODERATE
[2022-05-19 09:20] LABS: ANISOCYTOSIS MARKED; ELLIPT/OVALOCYTES SLIGHT
[2022-05-19 09:30] LABS: PHOSPHORUS 2.5 MG/DL (2.3-4.7)
[2022-05-19] MEDS: NOREPINEPHRINE 8 MG/250 ML 250 ML IV SCH (10:10)
--- NOTE | 2022-05-19 14:08 | Progress Note - Cardiology ---
Cardiology SOAP [facility] Objective: I&O/Vital Signs 05/19/22 05/19/22 05/19/22 05/19/22 02:56 03:00 04:00 04:00 Pulse 80 80 77 Resp B/P (MAP) 102/39 (60) 110/41 (64) Pulse Ox 97 96 96 O2 Delivery Mechanical Ventilator Mechanical Ventilator O2 Flow Rate 40.00 40.00 FiO2 40 40 05/19/22 05/19/22 05/19/22 05/19/22 04:00 05:00 05:00 06:00 Pulse 96 78 75 Resp B/P (MAP) 118/42 (67) 125/40 (68) Pulse Ox 96 94 97 97 O2 Delivery Mechanical Ventilator Mechanical Ventilator Mechanical Ventilator O2 Flow Rate 40.00 40.00 FiO2 40 05/19/22 05/19/22 05/19/22 05/19/22 06:47 07:00 07:00 08:00 Temp 37.1 Pulse 89 78 80 Resp 18 B/P (MAP) 111/37 (61) Pulse Ox 96 96 O2 Delivery Mechanical Ventilator O2 Flow Rate 40.00 FiO2 35 05/19/22 05/19/22 05/19/22 05/19/22 08:00 08:00 08:00 09:00 Pulse 75 87 Resp 14 11 B/P (MAP) 116/35 (62) 109/36 (60) Pulse Ox 96 96 94 O2 Delivery Mechanical Ventilator Mechanical Ventilator Mechanical Ventilator O2 Flow Rate 40.00 40.00 FiO2 35 35 05/19/22 05/19/22 05/19/22 05/19/22 10:00 10:10 10:11 10:14 Temp 36.8 Pulse 80 87 87 80 Resp 27 B/P (MAP) 126/45 109/36 125/44 118/42 (67) Pulse Ox 94 94 O2 Delivery Mechanical Ventilator Mechanical Ventilator O2 Flow Rate 40.00 FiO2 35 05/19/22 05/19/22 05/19/22 05/19/22 10:25 10:48 11:00 12:00 Pulse 82 82 114 87 Resp B/P (MAP) 127/53 123/44 (70) 127/41 (69) Pulse Ox 95 95 93 O2 Delivery Mechanical Ventilator Mechanical Ventilator O2 Flow Rate 40.00 40.00 FiO2 35 05/19/22 05/19/22 12:00 13:27 Temp 37.1 Pulse 87 B/P (MAP) 127/41 05/19/22 00:00 Intake Total 2070 ml Output Total 105 ml Balance 1965 ml Constitutional: well-developed, well-nourished, other ([facility], [facility]) Respiratory: other (fair to good, bilateral air entry; diminished at the bases) Cardiovascular: regular rate-rhythm, S1 and S2, systolic murmur (soft IRAIS at card base) Gastrointestional: No tender; soft; No guarding, No rebound; audible bowel sounds Extremities: other (mild edema); No clubbing, No cyanosis Neurologic/Psychiatric: other (unresponsive, on [facility] vent) Skin: No rash on exposed areas, No ulcerations on exposed areas Results/Procedures: Labs Laboratory Tests 05/18/22 18:09: Hemoglobin 7.4L, Hematocrit 24L, Sodium Level 127L, Potassium Level 3.8, Chloride Level 89L, Carbon Dioxide Level 24, Anion Gap 14, Blood Urea Nitrogen 21H, Creatinine 0.95, Estimat Glomerular Filtration Rate 83, BUN/Creatinine Ratio 22, Glucose Level 178H, Calcium Level 7.5L 05/18/22 18:25: Glucometer 169H 05/19/22 00:17: Glucometer 205H 05/19/22 05:25: Blood Gas Puncture Site RIGHT RADIAL, Blood Gas Patient Temperature 37, Arterial Blood pH 7.44H, Arterial Blood Partial Pressure CO2 41, Arterial Blood Partial Pressure O2 86, Arterial Blood HCO3 28H, Arterial Blood Total CO2 29.2, Arterial Blood Oxygen Saturation 98, Arterial Blood Base Excess 4.0H, Chuck Test YES-POS, Blood Gas Ventilator Setting YES, Blood Gas Inspired Oxygen NA 05/19/22 05:56: Glucometer 160H 05/19/22 08:30: White Blood Count 13.1H, Red Blood Count 3.03L, Hemoglobin 6.7*L, Hematocrit 22L , Mean Corpuscular Volume 72L, Mean Corpuscular Hemoglobin 22L, Mean Corpuscular Hemoglobin Concent 31L, Red Cell Distribution Width 19.0H, Platelet Count 278, Mean Platelet Volume 8.9L, Immature Granulocyte % (Auto) 1, Neutrophils (%) (Auto) 88H, Lymphocytes (%) (Auto) 5L, Monocytes (%) (Auto) 6, Eosinophils (%) (Auto) 0, Basophils (%) (Auto) 0, Neutrophils # (Auto) 11.5H, Lymphocytes # (Auto) 0.7L, Monocytes # (Auto) 0.7, Eosinophils # (Auto) 0.0, Basophils # (Auto) 0.0, Immature Granulocyte # (Auto) 0.1, Neutrophils % (Manual) 93, Lymphocytes % (Manual) 4, Monocytes % (Manual) 2, Eosinophils % (Manual) 0, B asophils % (Manual) 0, Band Neutrophils 1, Polychromasia MODERATE, Hypochromasia MARKED, Anisocytosis MARKED, Elliptocytes SLIGHT, Sodium Level 128L, Potassium Level 3.6, Chloride Level 94L, Carbon Dioxide Level 26, Anion Gap 8, Blood Urea Nitrogen 23H, Creatinine 0.98, Estimat Glomerular Filtration Rate 80, BUN/Creatinine Ratio 23, Glucose Level 162H, Calcium Level 7.2L, Corrected Calcium 8.4L, Phosphorus Level 2.5, Magnesium Level 2.0, Total Bilirubin 0.9, Aspartate Amino Transf (AST/SGOT) 95H, Alanine Aminotransferase (ALT/SGPT) 192H, Alkaline Phosphatase 58, Total Protein 5.2L, Albumin 2.5L 05/19/22 12:08: Glucometer 163H Microbiology 05/17/22 Gram Stain - Final, Resulted 05/17/22 Sputum Culture - Preliminary, Resulted Culture In Progress 05/17/22 Blood Culture - Preliminary, Resulted No growth Laboratory Tests 05/17/22 19:00 05/18/22 04:20 05/18/22 18:09 05/19/22 08:30 A/P: Assessment: Acute respiratory failure, ventilator dependent Pneumonia Sepsis and septic shock - 2D echo was done at bedside (Dr Camarena) showing normal LV size with mild hypokinesia, ejection fraction 45 to 50%. Pulmonary artery pressure appears to be 25 to 30 mmHg. No signs of cardiogenic shock Status post cardiac arrest secondary to bradycardia / asystole, most probably secondary to hypoxemia. No sign of acute myocardial infarction on his EKG Hyponatremia of undetermined etiology - Hospitalist josué managin COPD, oxygen dependent at home. Acute shock liver - improving Acute renal failure - improving Severe anemia of undetermined etiology, worsening - managed by the Hospitalist josué Plan: * I reviewed his chart and examined him. Complex management * Monitor labs * We recommend blood transfusion to restore hemoglobin above 8 * Support bp as needed * Continue effort at weaning off ventilator DEMARIO MIGUEL MD [facility] May 19, 2022 14:08
[2022-05-19 15:56] LABS: HEMOGLOBIN 7.7 g/dL (13.3-17.7)
[2022-05-19] MEDS ORDERED: ACETAMINOPHEN 650 MG SUPP (TYLENOL) PR ONE (17:30)
[2022-05-19] MEDS ORDERED: ACETAMINOPHEN 650 MG SUPP (TYLENOL) ONE (17:40)
[2022-05-19] MEDS ORDERED: NS IV 500 ML 500 ML IV SCH (19:00)
[2022-05-19] MEDS: VANCOMYCIN 1 GM/NS 250 ML IVPB IV SCH ×2 (21:02)
[2022-05-20] VITALS (7 sets, daily range): BP systolic 88–147; BP diastolic 48–63
[2022-05-20 03:02] LABS: BASOPHILS % (AUTO) 0 % (0-10); EOSINOPHILS % (AUTO) 0 % (0-10); HEMATOCRIT 28 % (40-54); HEMOGLOBIN 8.7 g/dL (13.3-17.7); LYMPHOCYTES # (AUTO) 0.5 10^3/uL (1.0-4.0); LYMPHOCYTES % (AUTO) 4 % (12-44); MEAN CORPUSCULAR HEMOGLOBIN 24 pg (25-34); MEAN CORPUSCULAR HGB CONC 31 g/dL (32-36); MEAN CORPUSCULAR VOLUME 77 fL (80-99); MEAN PLATELET VOLUME 9.3 fL (9.0-12.2); MONOCYTES # (AUTO) 0.7 10^3/uL (0.0-1.0); MONOCYTES % (AUTO) 6 % (0-12); NEUTROPHILS # (AUTO) 10.6 10^3/uL (1.8-7.8); NEUTROPHILS % (AUTO) 88 % (42-75); PLATELET COUNT 256 10^3/uL (130-400)
[2022-05-20 03:13] LABS: ALBUMIN 2.5 GM/DL (3.2-4.5); POTASSIUM 3.7 MMOL/L (3.6-5.0)
[2022-05-20 03:14] LABS: CALCIUM 7.2 MG/DL (8.5-10.1)
[2022-05-20 03:15] LABS: TOTAL PROTEIN 5.4 GM/DL (6.4-8.2)
[2022-05-20 03:19] LABS: CREATININE SERUM 0.75 MG/DL (0.60-1.30); PHOSPHORUS 2.2 MG/DL (2.3-4.7)
[2022-05-20] MEDS: POTASSIUM CL 10MEQ/50ML IVPB 50 ML IV SCH (03:20)
[2022-05-20] MEDS: KCL 20 MEQ TAB (K-DUR) PO SCH (03:20)
[2022-05-20 03:21] LABS: ABG BASE EXCESS 2.9 MMOL/L (-2.5-2.5); ABG OXYGEN SATURATION 97 % (94-100); ABG PCO2 49 MMHG (35-45); ABG PH 7.37 (7.37-7.43); ABG PO2 89 MMHG (79-93); ABG TCO2 29.3 MMOL/L (21.0-31.0)
[2022-05-20 03:23] LABS: ALLENS TEST YES-POS; INSPIRED O2 35%; PATIENT TEMP 37; VENTILATOR YES
[2022-05-20] MEDS: RT-ALBUTEROL/IPRATROPIUM 3 ML (DUONEB) VIAL INH SCH ×6 (03:33→22:23)
[2022-05-20] MEDS: MAGNESIUM 1 GM/100 ML IVPB 100 ML IV SCH (03:34)
[2022-05-20] MEDS: inSUlin ASPART (NovoLOG) 1 UNIT/0.01 ML (CHARGE PER UNIT) SC SCH ×3 (04:10→18:26)
[2022-05-20] MEDS: PROPOFOL DRIP (ICU) 100 ML IV SCH ×6 (04:10→21:29)
[2022-05-20] MEDS: EPINEPHrine 1 MG INJECTION 4 MG in NS (IVPB) 246 ML IV SCH ×3 (04:47→18:42)
--- NOTE | 2022-05-20 06:42 | Progress Note - Hospitalist ---
Subjective HPI/CC On Admission Date Seen by Provider: May 20, 2022 Time Seen by Provider: 11:00 Subjective/Events-last exam Patient about the same Trying to wean trial Hemoglobin stable Focused Exam Lactate Level 05/17/22 21:00: Lactic Acid Level 5.17*H 05/17/22 23:05: Lactic Acid Level 2.73*H 05/18/22 01:00: Lactic Acid Level 1.70 Objective Exam Vital Signs Vital Signs Date Time Temp Pulse Resp B/P (MAP) Pulse Ox O2 Delivery O2 Flow Rate FiO2 05/20/22 18:42 80 128/47 05/20/22 18:00 29 93 Mechanical Ventilator 35.00 05/20/22 16:43 35 05/20/22 16:00 37.0 Capillary Refill : Greater Than 3 Seconds General Appearance: Other (Sedated and intubated) Respiratory: Decreased Breath Sounds Cardiovascular: Regular Rate, Rhythm Results/Procedures Lab Laboratory Tests 05/20/22 02:54 Patient resulted labs reviewed. Assessment/Plan Assessment and Plan Assess & Plan/Chief Complaint 1. Sepsis--CODE BLUE on floor on day of admission -He was started on cefepime in the emergency department -IV fluids continue -eICU consultation 05/18 -White blood cell count noted to be elevated but a lot of this may have been stress from the code as well -He continues on IV fluids 2. Pneumonia -Cefepime 05/18 -day #4 cefepime 1000 mg IV every 6 hours 3. Hyponatremia -We will follow sodium in a.m. since he has now been receiving IV fluids 05/18 -Hyponatremic continues this may have been long-standing 4. Anemia -Plan on transfusion with 3 units and recheck CBC 05/20 -Patient received only 1 unit last evening -Appreciate all of the eICU help 5. Elevated troponin -Cardiology consultation 05/18 -appreciate Dr. Driscoll consultation and input 6. Malignant melanoma -Recently diagnosed 7. Diabetes mellitusknown 05/18 -he is currently on sliding scale insulin 8. Hyperlipidemia 9. History of hypertension currently hypotensive however 05/18 -Blood pressure overall is improved as of this morning Critical Care Ventilator Management CELIA TODD DO May 20, 2022 06:41
[2022-05-20] MEDS: CEFEPIME INJECTION 1,000 MG in NS (IVPB) 50 ML IV SCH ×5 (07:27→18:26)
[2022-05-20] MEDS: PANTOPRAZOLE 40 MG (PROTONIX) VIAL IV SCH (08:21)
[2022-05-20] MEDS: ENOXAPARIN 40 MG/0.4 ML (LOVENOX) SYR SC SCH (08:21)
[2022-05-20] MEDS: VANCOMYCIN 1 GM/NS 250 ML IVPB IV SCH ×4 (08:22→21:28)
--- NOTE | 2022-05-20 08:22 | Tele-ICU Progress Note ---
Subjective Date Seen by a Provider: May 20, 2022 Time Seen by a Provider: 10:49 Subjective/Events-last exam (Tele-ICU Physician , consultation) Available chart/ vitals / labs / Images reviewed H&P is from ER notes Patient's information available about PMH, allergy reviewed in EMR. ROS as per chart and RN report Video assessment done using teleICU camera, rest of exam as per RN Discussed with RN. Patient with a history of multiple myeloma with metastasis received chemotherapy admitted with pneumonia and subsequently had a cardiac arrest requiring resuscitation and intubation. Currently he is on mechanical ventilation, low- dose Levophed. Receiving normal saline at 125 cc/h. Upon admission he has a hyponatremia currently sodium increase it to 147. His hemoglobin dropped to 6.7 g and he is going to receive 1 unit of packed red blood cells. Blood cultures grew gram-positive cocci in clusters suggestive of staph. His current vent settings are 22/500/35/5. Impression 1. Possible staph sepsis and septic shock improving 2. Status post cardiopulmonary arrest secondary to the above, however needs to r/o PE 3. History of multiple myeloma with metastasis 3. Acute and chronic anemia secondary to malignancy and infection requiring packed red blood cell infusion. 4. Acute hypoxic respiratory failure secondary to pneumonia and sepsis . Recommendations 1. will get CTA of chest and will consider SBT later today. 2. Continue mechanical ventilatory support 3. Try to wean Levophed as much as possible 4. Continue IV fluids to 75 cc/h 5. Increase in her troponin probably due to stress being followed by cardiology 6. DVT prophylaxis and ulcer prophylaxis. 7. We will continue cefepime and add vancomycin. Addendum. CTA chest reviewed. showed NO PE but had multiple kanika. rib fractures probably due to cpr. also previously seen mets have increased in size including left chest wall mass. Sepsis Event Evaluation Height, Weight, BMI Height: '" Weight: lbs. oz. kg; 29.05 BMI Method: Focused Exam Lactate Level 05/17/22 21:00: Lactic Acid Level 5.17*H 05/17/22 23:05: Lactic Acid Level 2.73*H 05/18/22 01:00: Lactic Acid Level 1.70 Exam Exam Patient acknowledged, consented, and participated in this virtual visit which was conducted using real time audio/video Vital Signs Date Time Temp Pulse Resp B/P (MAP) Pulse Ox O2 Delivery O2 Flow Rate FiO2 05/20/22 08:00 74 22 95 Mechanical Ventilator 35.00 124/44 (70) 05/20/22 07:00 79 05/20/22 07:00 87 22 100 Mechanical Ventilator 35.00 91/51 (64) 05/20/22 06:47 94 22 96 35 05/20/22 06:00 85 17 97 Mechanical Ventilator 35.00 136/48 (77) 05/20/22 05:00 89 22 97 Mechanical Ventilator 35.00 129/41 (70) 05/20/22 05:00 90 22 96 05/20/22 04:10 90 125/43 05/20/22 04:00 85 22 96 Mechanical Ventilator 35.00 126/42 (70) 05/20/22 04:00 35 05/20/22 04:00 94 Mechanical Ventilator 35 05/20/22 03:39 37.0 05/20/22 03:26 76 22 98 35 05/20/22 03:00 96 22 95 Mechanical Ventilator 35.00 142/43 (76) 05/20/22 02:00 100 16 96 Mechanical Ventilator 35.00 119/46 (70) 05/20/22 01:00 82 05/20/22 01:00 92 18 96 Mechanical Ventilator 35.00 134/47 (76) 05/20/22 00:06 35 05/20/22 00:00 86 22 97 Mechanical Ventilator 35.00 127/48 (74) 05/19/22 23:59 94 Mechanical Ventilator 35 05/19/22 23:54 82 115/45 05/19/22 23:22 36.2 Mechanical Ventilator 35.00 05/19/22 23:00 89 22 95 Mechanical Ventilator 35.00 132/45 (74) 05/19/22 22:00 84 22 97 Mechanical Ventilator 35.00 132/44 (73) 05/19/22 21:52 36.6 86 22 126/44 Mechanical Ventilator 35 05/19/22 21:35 102 22 96 35 05/19/22 21:00 86 23 95 Mechanical Ventilator 35.00 123/42 (69) 05/19/22 20:00 36.2 92 22 129/43 Mechanical Ventilator 35 05/19/22 20:00 95 Mechanical Ventilator 35 05/19/22 20:00 92 22 96 Mechanical Ventilator 35.00 123/46 (71) 05/19/22 20:00 35 05/19/22 19:56 87 131/43 05/19/22 19:45 36.4 92 22 121/40 94 Mechanical Ventilator 35 05/19/22 19:22 92 22 94 35 05/19/22 19:00 36.4 Mechanical Ventilator 35.00 05/19/22 19:00 114 05/19/22 19:00 86 22 94 Mechanical Ventilator 35.00 117/41 (66) 05/19/22 18:54 124 124/70 05/19/22 18:00 121 22 93 Mechanical Ventilator 40.00 121/47 (71) 05/19/22 17:40 38.1 05/19/22 17:27 121 121/47 05/19/22 17:00 117 19 93 Mechanical Ventilator 40.00 114/41 (65) 05/19/22 16:00 37.9 05/19/22 16:00 107 94 Mechanical Ventilator 40.00 100/43 (62) 05/19/22 16:00 35 05/19/22 16:00 93 Mechanical Ventilator 35 05/19/22 15:00 85 94 Mechanical Ventilator 40.00 121/41 (67) 05/19/22 14:23 103 22 94 35 05/19/22 14:11 103 112/47 05/19/22 14:00 80 22 94 Mechanical Ventilator 40.00 122/40 (67) 05/19/22 13:27 87 127/41 05/19/22 13:00 82 05/19/22 13:00 89 22 93 Mechanical Ventilator 40.00 127/41 (69) 05/19/22 12:00 37.1 05/19/22 12:00 87 22 93 Mechanical Ventilator 40.00 127/41 (69) 05/19/22 12:00 97 Mechanical Ventilator 35 05/19/22 12:00 35 05/19/22 11:00 114 22 95 Mechanical Ventilator 40.00 123/44 (70) 05/19/22 10:48 82 22 95 35 05/19/22 10:25 82 127/53 05/19/22 10:14 36.8 80 27 125/44 94 Mechanical Ventilator 35 05/19/22 10:11 87 109/36 05/19/22 10:10 87 126/45 05/19/22 10:00 80 22 94 Mechanical Ventilator 40.00 118/42 (67) 05/19/22 09:00 87 11 94 Mechanical Ventilator 40.00 109/36 (60) I & O 05/20/22 07:00 Intake Total 2872.5 ml Output Total 3200 ml Balance -327.5 ml Height & Weight Height: '" Weight: lbs. oz. kg; 29.05 BMI Method: General Appearance: No Apparent Distress, WD/WN, Obese, Other (Sedated and intubated) HEENT: PERRL/EOMI Neck: Supple Respiratory: Lungs Clear, Normal Breath Sounds Cardiovascular: Regular Rate, Rhythm Capillary Refill: Greater Than 3 Seconds Gastrointestinal: soft Extremity: No Pedal Edema Neurologic/Psychiatric: Other (Noncommunicating due to intubation) Skin: Normal Color Results Lab Laboratory Tests 05/18/22 18:09 05/19/22 08:30 05/19/22 15:35 05/20/22 02:54 Assessment/Plan Assessment/Plan as above Critical Care: Ventilator Management Time spent with patient (mins): 33 JELENA ISAAC MD May 20, 2022 08:22
--- NOTE | 2022-05-20 08:32 | Diagnostic Imaging Report ---
INDICATION: Respiratory failure. COMPARISON: 05/19/2022 FINDINGS: Single frontal radiographic view of the chest was obtained and demonstrates indwelling endotracheal tube with tip below the clavicular heads above the bernard. Bilateral internal jugular central venous catheter is also noted. Gastric tube is present, but tip is obscured. Cardiac silhouette and pulmonary vasculature are within normal limits. Bibasilar airspace opacities are again identified. There is increased consolidative opacity of the left base with obscuration of the left hemidiaphragm. No pneumothorax is seen on either side. IMPRESSION: 1. Increase in left basilar airspace disease, which may be on the basis of increasing pleural effusion. 2. Persistent bibasilar atelectasis and/or infiltrate. 3. Lines and tubes as above. Dictated by: Dictated on workstation # [id number]
[2022-05-20] MEDS ORDERED: IOHEXOL 350 MG/ML 100 ML (OMNIPAQUE 350) VIAL IV ONE (09:00)
[2022-05-20] MEDS ORDERED: NS 100 ML (IVPB) BAG IV ONE (09:00)
--- NOTE | 2022-05-20 10:39 | Diagnostic Imaging Report ---
PROCEDURE: CT angiography of the chest with contrast. TECHNIQUE: Multiple contiguous axial images were obtained through the chest after uneventful bolus administration of intravenous contrast. 3D reconstructed CTA MIP acquisitions were also performed. Auto Exposure Controls were utilized during the CT exam to meet ALARA standards for radiation dose reduction. INDICATION: Cardiac arrest, abnormal chest x-ray COMPARISON: 02/02/2022 and radiographs dated 05/20/2022. FINDINGS: Endotracheal tube is present with the distal tip terminating within the trachea above the level of the bernard. Enteric catheter is present extending into the stomach. Prominent complex cystic structure within the left lateral breast extending into the left axilla is again identified and increased in size since the prior examination. This is associated with increasing adenopathy within the left axilla and lateral left chest wall. Right-sided Port-A-Cath is in place. Scattered vascular calcifications are present without aneurysmal dilatation of thoracic aorta. The heart is within normal limits in size. No significant pericardial effusion. Small bilateral pleural effusions are present. No pneumothorax. Dense consolidation is noted within the bilateral lower lobes with associated air bronchograms. Peribronchial thickening is also noted within the right lower lobe and right middle lobe. Additional reticular opacities are seen within the left upper lobe. No significant filling defect within the central or segmental pulmonary arteries. 4.1 x 4.0 cm right adrenal gland mass lesion is present, having increased in size since the prior examination. Mild nodularity of the left adrenal gland has also increased in size since the prior exam. No free air within the visualized upper abdomen. Acute fracturing of the anterolateral left 2nd, 3rd, 4th, 5th, 6th, and 7th ribs is noted. Additional acute fracturing of the anterolateral right 2nd, 3rd, 4th, 5th, 6th, and 7th ribs is also noted. IMPRESSION: No significant pulmonary embolus. Acute fracturing of multiple bilateral anterolateral ribs. Findings concerning for worsening metastatic disease. In particular, right adrenal gland mass lesion has significantly increased in size since the prior examination with increasing nodularity within the left adrenal gland. Additionally, focal complex cystic mass within the left lateral breast/left axilla has increased in size since the prior examination with worsening adenopathy within the left lateral chest wall. Small dependent layering pleural effusions with adjacent extensive infiltrate within the lower lobes with additional patchy infiltrate within the bilateral upper lobes. Additional findings as above. Dictated by: Dictated on workstation # [id number]
--- NOTE | 2022-05-20 10:45 | Progress Note - Cardiology ---
Cardiology SOAP Progress Note Subjective: Intubated, on mech vent, unresponsive Objective: I&O/Vital Signs 05/19/22 05/19/22 05/19/22 05/19/22 23:00 23:22 23:54 23:59 Temp 36.2 Pulse 89 82 Resp 22 B/P (MAP) 115/45 132/45 (74) Pulse Ox 95 94 O2 Delivery Mechanical Ventilator Mechanical Ventilator Mechanical Ventilator O2 Flow Rate 35.00 35.00 FiO2 35 05/20/22 05/20/22 05/20/22 05/20/22 00:00 00:06 01:00 01:00 Pulse 86 92 82 Resp 22 18 B/P (MAP) 127/48 (74) 134/47 (76) Pulse Ox 97 96 O2 Delivery Mechanical Ventilator Mechanical Ventilator O2 Flow Rate 35.00 35.00 FiO2 35 05/20/22 05/20/22 05/20/22 05/20/22 02:00 03:00 03:26 03:39 Temp 37.0 Pulse 100 96 76 Resp B/P (MAP) 119/46 (70) 142/43 (76) Pulse Ox 96 95 98 O2 Delivery Mechanical Ventilator Mechanical Ventilator O2 Flow Rate 35.00 35.00 FiO2 35 05/20/22 05/20/22 05/20/22 05/20/22 04:00 04:00 04:00 04:10 Pulse 85 90 Resp 22 B/P (MAP) 125/43 126/42 (70) Pulse Ox 94 96 O2 Delivery Mechanical Ventilator Mechanical Ventilator O2 Flow Rate 35.00 FiO2 35 35 05/20/22 05/20/22 05/20/22 05/20/22 05:00 05:00 06:00 06:47 Pulse 90 89 85 94 Resp 22 B/P (MAP) 129/41 (70) 136/48 (77) Pulse Ox 96 97 97 96 O2 Delivery Mechanical Ventilator Mechanical Ventilator O2 Flow Rate 35.00 35.00 FiO2 35 05/20/22 05/20/22 05/20/22 05/20/22 07:00 07:00 07:42 08:00 Pulse 87 79 Resp 22 B/P (MAP) 91/51 (64) Pulse Ox 100 97 O2 Delivery Mechanical Ventilator Mechanical Ventilator O2 Flow Rate 35.00 FiO2 35 35 05/20/22 05/20/22 05/20/22 05/20/22 08:00 08:15 08:21 08:40 Temp 37.6 Pulse 74 86 74 Resp 22 B/P (MAP) 146/46 143/51 124/44 (70) Pulse Ox 95 O2 Delivery Mechanical Ventilator O2 Flow Rate 35.00 05/20/22 09:00 Pulse 86 Resp 15 B/P (MAP) 146/46 (79) Pulse Ox 96 O2 Delivery Mechanical Ventilator O2 Flow Rate 35.00 05/20/22 00:00 Intake Total 1700 ml Output Total 1625 ml Balance 75 ml Constitutional: well-developed, well-nourished, other (on [facility], unresponsive) Respiratory: other (fair to good, bilateral air entry; diminished at the bases) Cardiovascular: regular rate-rhythm, S1 and S2, systolic murmur (soft IRAIS at card base) Gastrointestional: No tender; soft; No guarding, No rebound; audible bowel sounds Extremities: other (mild edema); No clubbing, No cyanosis Neurologic/Psychiatric: other (unresponsive, on [facility] vent) Skin: No rash on exposed areas, No ulcerations on exposed areas Results/Procedures: Labs Laboratory Tests 05/19/22 12:08: Glucometer 163H 05/19/22 15:35: Hemoglobin 7.7L, Hematocrit 25L 05/19/22 17:47: Glucometer 180H 05/19/22 23:47: Glucometer 195H 05/20/22 02:54: White Blood Count 12.0H, Red Blood Count 3.70L, Hemoglobin 8.7#L, Hematocrit 28L , Mean Corpuscular Volume 77L, Mean Corpuscular Hemoglobin 24L, Mean Corpuscular Hemoglobin Concent 31L, Red Cell Distribution Width 19.3H, Platelet Count 256, Mean Platelet Volume 9.3, Immature Granulocyte % (Auto) 1, Neutrophils (%) (Auto) 88H, Lymphocytes (%) (Auto) 4L, Monocytes (%) (Auto) 6, Eosinophils (%) (Auto) 0, Basophils (%) (Auto) 0, Neutrophils # (Auto) 10.6H, Lymphocytes # (Aut o) 0.5L, Monocytes # (Auto) 0.7, Eosinophils # (Auto) 0.0, Basophils # (Auto) 0.0, Immature Granulocyte # (Auto) 0.1, Sodium Level 131L, Potassium Level 3.7, Chloride Level 98, Carbon Dioxide Level 24, Anion Gap 9, Blood Urea Nitrogen 18, Creatinine 0.75, Estimat Glomerular Filtration Rate 94, BUN/Creatinine Ratio 24, Glucose Level 190H, Calcium Level 7.2L, Corrected Calcium 8.4L, Phosphorus Level 2.2L, Magnesium Level 2.0, Total Bilirubin 1.0, Aspartate Amino Transf (A ST/SGOT) 86H, Alanine Aminotransferase (ALT/SGPT) 184H, Alkaline Phosphatase 65, Total Protein 5.4L, Albumin 2.5L, Triglycerides Level 170H 05/20/22 03:10: Blood Gas Puncture Site RIGHT ARTLINE, Blood Gas Patient Temperature 37, Arterial Blood pH 7.37, Arterial Blood Partial Pressure CO2 49H, Arterial Blood Partial Pressure O2 89, Arterial Blood HCO3 28H, Arterial Blood Total CO2 29.3, Arterial Blood Oxygen Saturation 97, Arterial Blood Base Excess 2.9H, Chuck Test YES-POS, Blood Gas Ventilator Setting YES, Blood Gas Inspired Oxygen 35% Microbiology 05/17/22 Gram Stain - Final, Complete 05/17/22 Sputum Culture - Final, Complete Usual upper respiratory shayan 05/17/22 Blood Culture - Preliminary, Resulted No growth Laboratory Tests 05/18/22 18:09 05/19/22 08:30 05/19/22 15:35 05/20/22 02:54 A/P: Assessment: Acute respiratory failure, ventilator dependent Pneumonia Sepsis and septic shock - 2D echo was done at bedside (Dr Camarena) showing normal LV size with mild hypokinesia, ejection fraction 45 to 50%. Pulmonary artery pressure appears to be 25 to 30 mmHg. No signs of cardiogenic shock Status post cardiac arrest secondary to bradycardia / asystole, most probably secondary to hypoxemia. No sign of acute myocardial infarction on his EKG Hyponatremia of undetermined etiology - Hospitalist josué managin COPD, oxygen dependent at home. Acute shock liver - improving Acute renal failure - improving Severe anemia of undetermined etiology, worsening - managed by the Hospitalist josué Plan: * Management remains complex * Monitor labs * We recommend blood transfusion to restore hemoglobin above 8 * Support bp as needed * Continue effort at weaning off ventilator DEMARIO MIGUEL MD [facility] May 20, 2022 10:45
[2022-05-20] MEDS: fentaNYL INJ 100 MCG/2 ML AMP IVP PRN (14:41)
[2022-05-20] MEDS: NS IV 1000 ML 1,000 ML IV SCH ×2 (16:46→18:33)
[2022-05-20] MEDS ORDERED: ACETAMINOPHEN 325 MG TABLET FEEDING ONE (20:00)
[2022-05-20] MEDS ORDERED: TROUGH ORDER-PHARMACY XX NR (20:00)
--- NOTE | 2022-05-20 20:03 | Tele-ICU Progress Note ---
Progress Note Pt with septic shock. Now with fever , on antibiotics. Repeat blood , urine and sputum cultures ordered and tylenol given. d/w the bedside nurse, Interventions Minor-Other: Fever Focused Exam Lactate Level 05/17/22 21:00: Lactic Acid Level 5.17*H 05/17/22 23:05: Lactic Acid Level 2.73*H 05/18/22 01:00: Lactic Acid Level 1.70 Height, Weight, BMI Height: '" Weight: lbs. oz. kg; 29.05 BMI Method: CLEOPATRA GRANDE MD May 20, 2022 20:03
[2022-05-20 22:27] LABS: BILIRUBIN,URINE NEGATIVE (NEGATIVE); CLARITY,URINE CLEAR; COLOR,URINE YELLOW; GLUCOSE, URINE (UA) TRACE (NEGATIVE); KETONES,URINE NEGATIVE (NEGATIVE); LEUKOCYTE ESTERASE ,URINE NEGATIVE (NEGATIVE); NITRITE,URINE NEGATIVE (NEGATIVE); PROTEIN,URINE 2+ (NEGATIVE)
[2022-05-20 22:36] LABS: BACTERIA,URINE FEW /HPF; GRANULAR CASTS,URINE 0-2 /LPF; WBC,URINE 0-2 /HPF
[2022-05-20] MEDS: NOREPINEPHRINE 8 MG/250 ML 250 ML IV SCH (22:54)
[2022-05-21] VITALS (7 sets, daily range): BP systolic 126–143; BP diastolic 51–62
[2022-05-21] MEDS: inSUlin ASPART (NovoLOG) 1 UNIT/0.01 ML (CHARGE PER UNIT) SC SCH ×5 (01:19→23:59)
[2022-05-21] MEDS: CEFEPIME INJECTION 1,000 MG in NS (IVPB) 50 ML IV SCH ×4 (01:20→18:16)
[2022-05-21] MEDS: PROPOFOL DRIP (ICU) 100 ML IV SCH ×5 (02:41→21:54)
[2022-05-21] MEDS: NOREPINEPHRINE 8 MG/250 ML 250 ML IV SCH (02:43)
[2022-05-21] MEDS: RT-ALBUTEROL/IPRATROPIUM 3 ML (DUONEB) VIAL INH SCH ×6 (02:55→22:45)
[2022-05-21 04:16] LABS: BASOPHILS % (AUTO) 0 % (0-10); EOSINOPHILS # (AUTO) 0.2 10^3/uL (0.0-0.3); EOSINOPHILS % (AUTO) 2 % (0-10); HEMATOCRIT 29 % (40-54); HEMOGLOBIN 8.5 g/dL (13.3-17.7); LYMPHOCYTES # (AUTO) 0.7 10^3/uL (1.0-4.0); LYMPHOCYTES % (AUTO) 8 % (12-44); MEAN CORPUSCULAR HEMOGLOBIN 23 pg (25-34); MEAN CORPUSCULAR HGB CONC 30 g/dL (32-36); MEAN CORPUSCULAR VOLUME 78 fL (80-99); MONOCYTES # (AUTO) 0.7 10^3/uL (0.0-1.0); MONOCYTES % (AUTO) 7 % (0-12); NEUTROPHILS # (AUTO) 7.5 10^3/uL (1.8-7.8); NEUTROPHILS % (AUTO) 82 % (42-75); PLATELET COUNT 262 10^3/uL (130-400); WHITE BLOOD COUNT 9.1 10^3/uL (4.3-11.0)
[2022-05-21 04:36] LABS: ALBUMIN 2.4 GM/DL (3.2-4.5); POTASSIUM 4.3 MMOL/L (3.6-5.0)
[2022-05-21 04:37] LABS: CALCIUM 6.8 MG/DL (8.5-10.1)
[2022-05-21 04:38] LABS: TOTAL PROTEIN 5.5 GM/DL (6.4-8.2)
[2022-05-21 04:40] LABS: BILIRUBIN,TOTAL 0.6 MG/DL (0.1-1.0)
[2022-05-21] MEDS: EPINEPHrine 1 MG INJECTION 4 MG in NS (IVPB) 246 ML IV SCH ×4 (04:40→23:45)
[2022-05-21] MEDS: KCL 20 MEQ TAB (K-DUR) PO SCH (04:40)
[2022-05-21] MEDS: POTASSIUM CL 10MEQ/50ML IVPB 50 ML IV SCH (04:40)
[2022-05-21 04:41] LABS: PHOSPHORUS 1.6 MG/DL (2.3-4.7)
[2022-05-21 04:42] LABS: CREATININE SERUM 0.69 MG/DL (0.60-1.30)
[2022-05-21 04:49] LABS: ABG BASE EXCESS 2.1 MMOL/L (-2.5-2.5); ABG OXYGEN SATURATION 95 % (94-100); ABG PCO2 49 MMHG (35-45); ABG PH 7.36 (7.37-7.43); ABG PO2 71 MMHG (79-93); ABG TCO2 28.7 MMOL/L (21.0-31.0)
[2022-05-21] MEDS: MAGNESIUM 1 GM/100 ML IVPB 100 ML IV SCH (04:49)
[2022-05-21 04:50] LABS: ALLENS TEST YES-POS; INSPIRED O2 35%; PATIENT TEMP 36.4; VENTILATOR YES
--- NOTE | 2022-05-21 06:53 | Occ Therapy Progress Note ---
Therapy Progress Note Pt currently intubated. OT to monitor pt's status then will initiate treatment when pt is medically stable and able to actively participate in skilled therapy. JORDEN CURRY May 21, 2022 06:53
--- NOTE | 2022-05-21 07:28 | Physical Therapy Progress Note ---
Therapy Progress Note Patient is sedated and intubated per report. PT will monitor patient status and initiate treatment when patient is deemed medically stable and able to actively participate with skilled therapy. ANDREY TAVERA PT May 21, 2022 07:28
--- NOTE | 2022-05-21 07:35 | Progress Note ---
Subjective Date Seen by a Provider: May 21, 2022 Time Seen by a Provider: 07:00 Subjective/Events-last exam Patient remains intubated. Attempted extubation this weekend but unsuccessful. CT abdomen performed yesterday. Today I also spoke with Ellis which is [facility] child. He was made aware of yesterday's finding of a mass on his adrenal gland. Ellis informs me that his father never really expressed his wishes in case it came to extended medical care. We briefly spoke about comfort care but at this time we'll plan on having oncology consultation to help determine his prognosis. Objective Exam Vital Signs Date Time Temp Pulse Resp B/P (MAP) Pulse Ox O2 Delivery O2 Flow Rate FiO2 05/21/22 06:52 85 22 96 35 05/21/22 06:00 78 22 96 Mechanical Ventilator 35.00 05/21/22 05:00 73 22 95 Mechanical Ventilator 35.00 05/21/22 05:00 105 22 96 05/21/22 04:27 36.5 05/21/22 04:00 97 22 100 Mechanical Ventilator 35.00 05/21/22 04:00 35 05/21/22 04:00 96 Mechanical Ventilator 35 05/21/22 03:00 85 22 96 Mechanical Ventilator 35.00 05/21/22 02:55 92 22 95 35 05/21/22 02:43 89 124/48 05/21/22 02:41 81 157/64 05/21/22 02:00 66 22 95 Mechanical Ventilator 35.00 05/21/22 01:00 68 05/21/22 01:00 68 22 96 Mechanical Ventilator 35.00 05/21/22 00:00 35 05/21/22 00:00 71 22 96 Mechanical Ventilator 35.00 05/20/22 23:59 96 Mechanical Ventilator 35 05/20/22 23:48 35.9 05/20/22 23:00 83 22 96 Mechanical Ventilator 35.00 05/20/22 22:24 73 22 94 35 05/20/22 22:00 94 22 94 Mechanical Ventilator 35.00 05/20/22 21:29 38.1 05/20/22 21:29 101 133/53 05/20/22 21:00 115 22 93 Mechanical Ventilator 35.00 05/20/22 20:00 100 22 94 Mechanical Ventilator 35.00 05/20/22 20:00 35 05/20/22 20:00 95 Mechanical Ventilator 35 05/20/22 19:51 38.6 05/20/22 19:11 113 22 94 35 05/20/22 19:00 95 22 93 Mechanical Ventilator 35.00 05/20/22 19:00 111 05/20/22 18:42 80 128/47 05/20/22 18:27 80 128/47 05/20/22 18:00 87 29 93 Mechanical Ventilator 35.00 131/50 (77) 05/20/22 17:00 109 22 94 Mechanical Ventilator 35.00 125/56 (79) 05/20/22 16:43 95 Mechanical Ventilator 35 05/20/22 16:00 37.0 05/20/22 16:00 86 22 93 Mechanical Ventilator 35.00 138/51 (80) 05/20/22 15:40 86 138/51 05/20/22 15:07 79 119/48 05/20/22 15:00 96 22 91 Mechanical Ventilator 35.00 118/53 (74) 05/20/22 14:38 79 22 96 35 05/20/22 14:32 35 05/20/22 14:28 75 22 95 35 05/20/22 14:00 82 22 94 Mechanical Ventilator 35.00 101/54 (70) 05/20/22 13:00 75 15 97 Mechanical Ventilator 35.00 150/53 (85) 05/20/22 12:56 83 05/20/22 12:45 75 150/53 05/20/22 12:19 36.5 05/20/22 12:15 96 Mechanical Ventilator 35 05/20/22 12:01 36.8 05/20/22 12:01 81 152/63 05/20/22 12:00 87 15 94 Mechanical Ventilator 35.00 154/50 (84) 05/20/22 12:00 35 05/20/22 11:53 81 152/63 05/20/22 11:00 80 18 100 Mechanical Ventilator 35.00 154/56 (88) 05/20/22 10:54 82 22 92 35 05/20/22 10:00 107 8 94 Mechanical Ventilator 35.00 132/37 (68) 05/20/22 09:00 86 15 96 Mechanical Ventilator 35.00 146/46 (79) 05/20/22 08:40 37.6 05/20/22 08:21 74 143/51 12/18/22 08:15 86 146/46 05/20/22 08:00 74 22 95 Mechanical Ventilator 35.00 124/44 (70) 05/20/22 08:00 35 05/20/22 07:42 97 Mechanical Ventilator 35 I & O 05/21/22 07:00 Intake Total 3980 ml Output Total 1925 ml Balance 2055 ml Capillary Refill : Greater Than 3 Seconds General Appearance: No Apparent Distress (but sedated and intubated) Respiratory: No Accessory Muscle Use, Crackles (in bases and decreased BS) Cardiovascular: Regular Rate, Rhythm Gastrointestinal: soft Results Lab Laboratory Tests 05/20/22 12:00: Glucometer 168H 05/20/22 18:00: Glucometer 197H 05/20/22 20:06: Vancomycin Level Trough 12.3 05/20/22 20:13: Urine Color YELLOW, Urine Clarity CLEAR, Urine pH 6.0, Urine Specific [place] 1.025H, Urine Protein 2+H, Urine Glucose (UA) TRACEH, Urine Ketones NEGATIVE, Urine Nitrite NEGATIVE, Urine Bilirubin NEGATIVE, Urine Urobilinogen 0.2, Urine Leukocyte Esterase NEGATIVE, Urine RBC (Auto) TRACE-IH, Urine RBC 2-5H, Urine WBC 0-2, Urine Squamous Epithelial Cells NONE, Urine Crystals NONE, Urine Bacte jeffery FEWH, Urine Casts PRESENT, Urine Granular Casts 0-2H, Urine Mucus NEGATIVE, Urine Culture Indicated YES 05/20/22 23:48: Glucometer 179H 05/21/22 04:05: White Blood Count 9.1, Red Blood Count 3.70L, Hemoglobin 8.5L, Hematocrit 29L, Mean Corpuscular Volume 78L, Mean Corpuscular Hemoglobin 23L, Mean Corpuscular Hemoglobin Concent 30L, Red Cell Distribution Width 19.8H, Platelet Count 262, Mean Platelet Volume 9.0, Immature Granulocyte % (Auto) 1, Neutrophils (%) (Auto) 82H, Lymphocytes (%) (Auto) 8L, Monocytes (%) (Auto) 7, Eosinophils (%) (Auto) 2, Basophils (%) (Auto) 0, Neutrophils # (Auto) 7.5, Lymphocytes # (Auto) 0.7L, Monocytes # (Auto) 0.7, Eosinophils # (Auto) 0.2, Basophils # (Auto) 0.0, Immature Granulocyte # (Auto) 0.1, Sodium Level 133L, Potassium Level 4.3, Chloride Level 101, Carbon Dioxide Level 24, Anion Gap 8, Blood Urea Nitrogen 16, Creatinine 0.69, Estimat Glomerular Filtration Rate 96, BUN/Creatinine Ratio 23, Glucose Level 209H, Calcium Level 6.8L, Corrected Calcium 8.1L, Phosphorus Level 1.6L, Magnesium Level 2.0, Total Bilirubin 0.6, Aspartate Amino Transf (AST/SGOT) 64H, Alanine Aminotransferase (ALT/SGPT) 151H, Alkaline Phosphatase 71, Total Protein 5.5L, Albumin 2.4L 05/21/22 04:14: Blood Gas Puncture Site LEFT RADIAL, Blood Gas Patient Temperature 36.4, Arterial Blood pH 7.36L, Arterial Blood Partial Pressure CO2 49H, Arterial Blood Partial Pressure O2 71L, Arterial Blood HCO3 27, Arterial Blood Total CO2 28.7, Arterial Blood Oxygen Saturation 95, Arterial Blood Base Excess 2.1, Chuck Test YES-POS, Blood Gas Ventilator Setting YES, Blood Gas Inspired Oxygen 35% Microbiology 05/17/22 Gram Stain - Final, Complete 05/17/22 Sputum Culture - Final, Complete Usual upper respiratory shayan 05/17/22 Blood Culture - Preliminary, Resulted No growth Assessment/Plan Assessment/Plan Assess & Plan/Chief Complaint 1. Sepsis--CODE BLUE on floor on day of admission -He was started on cefepime in the emergency department -IV fluids continue -eICU consultation 05/18 -White blood cell count noted to be elevated but a lot of this may have been stress from the code as well -He continues on IV fluids 2. Pneumonia -Cefepime 05/18 -day #2 cefepime 1000 mg IV every 6 hours 05/21/2022 -Day #5 cefepime 3. Hyponatremia -We will follow sodium in a.m. since he has now been receiving IV fluids 05/18 -Hyponatremic continues this may have been long-standing 4. Anemia -Plan on transfusion with 2 units and recheck CBC 05/18 -Patient received only 1 unit last evening -Appreciate all of the eICU help 5. Elevated troponin -Cardiology consultation 05/18 -appreciate Dr. Driscoll consultation and input 6. Malignant melanoma -Recently diagnosed 05/21 -CT of the chest yesterday revealed mass to the right adrenal gland. I spoke with his son today regarding the findings. Will consult oncology 7. Diabetes mellitusknown 05/18 -he is currently on sliding scale insulin 8. Hyperlipidemia 9. History of hypertension currently hypotensive however 05/18 -Blood pressure overall is improved as of this morning Clinical Quality Measures Admission Status Admission Dx 1. Sepsis 2. Pneumonia 3. Hyponatremia 4. Anemia 5. Malignant melanoma 6. Diabetes mellitusknown 7. Hyperlipidemia 8. History of hypertension currently hypotensive however STEPHANIE IRBY MD May 21, 2022 07:35
[2022-05-21] MEDS: NS IV 1000 ML 1,000 ML IV SCH ×2 (08:10→23:43)
[2022-05-21] MEDS: ENOXAPARIN 40 MG/0.4 ML (LOVENOX) SYR SC SCH (08:10)
[2022-05-21] MEDS: VANCOMYCIN 1 GM/NS 250 ML IVPB IV SCH ×4 (08:10→21:54)
[2022-05-21] MEDS: PANTOPRAZOLE 40 MG (PROTONIX) VIAL IV SCH (08:10)
--- NOTE | 2022-05-21 09:19 | Tele-ICU Progress Note ---
Subjective Date Seen by a Provider: May 21, 2022 Time Seen by a Provider: 13:25 Subjective/Events-last exam (Tele-ICU Physician , consultation) Available chart/ vitals / labs / Images reviewed H&P is from ER notes Patient's information available about PMH, allergy reviewed in EMR. ROS as per chart and RN report Video assessment done using teleICU camera, rest of exam as per RN Discussed with RN. Patient with a history of multiple myeloma with metastasis received chemotherapy admitted with pneumonia and subsequently had a cardiac arrest requiring resuscitation and intubation. Currently he is on mechanical ventilation, low- dose Levophed. Receiving normal saline at 125 cc/h. Upon admission he has a hyponatremia currently sodium increase it to 147. His hemoglobin dropped to 6.7 g and he is going to receive 1 unit of packed red blood cells. Blood cultures grew gram-positive cocci in clusters suggestive of staph. His current vent settings are 22/500/35/5. CTA showed no pe. had multiple kanika. rib fractures and increase in metastic lesions. SBT tried but he did not tolerate again today Impression 1. Possible staph sepsis and septic shock improving 2. Status post cardiopulmonary arrest secondary to the above, however needs to r/o PE 3. History of multiple myeloma with metastasis 3. Acute and chronic anemia secondary to malignancy and infection requiring packed red blood cell infusion. 4. Acute hypoxic respiratory failure secondary to pneumonia and sepsis . 5. kanika. multiple rib fractures probably due to cpr Recommendations 1. Will increase fentanyl to 50 mcg ivp prn q3hrs prn for pain and try SBT later today. 2. Continue mechanical ventilatory support 3. Try to wean Levophed as much as possible 4. Continue IV fluids to 75 cc/h 5. Increase in her troponin probably due to stress being followed by cardiology 6. DVT prophylaxis and ulcer prophylaxis. 7. We will continue cefepime and d/c vancomycin. repeat bc 8. Oncology to see patient. 9. sodium phosphate rider 10 . prognosis poor.. Sepsis Event Evaluation Height, Weight, BMI Height: '" Weight: lbs. oz. kg; 29.77 BMI Method: Exam Exam Patient acknowledged, consented, and participated in this virtual visit which was conducted using real time audio/video Vital Signs Date Time Temp Pulse Resp B/P (MAP) Pulse Ox O2 Delivery O2 Flow Rate FiO2 05/21/22 07:13 92 05/21/22 07:00 103 22 95 Mechanical Ventilator 35.00 05/21/22 06:52 85 22 96 35 05/21/22 06:52 36.5 85 96 05/21/22 06:00 78 22 96 Mechanical Ventilator 35.00 05/21/22 05:00 73 22 95 Mechanical Ventilator 35.00 05/21/22 05:00 105 22 96 05/21/22 04:27 36.5 05/21/22 04:00 97 22 100 Mechanical Ventilator 35.00 05/21/22 04:00 35 05/21/22 04:00 96 Mechanical Ventilator 35 05/21/22 03:00 85 22 96 Mechanical Ventilator 35.00 05/21/22 02:55 92 22 95 35 05/21/22 02:43 89 124/48 05/21/22 02:41 81 157/64 05/21/22 02:00 66 22 95 Mechanical Ventilator 35.00 05/21/22 01:00 68 05/21/22 01:00 68 22 96 Mechanical Ventilator 35.00 05/21/22 00:00 35 05/21/22 00:00 71 22 96 Mechanical Ventilator 35.00 05/20/22 23:59 96 Mechanical Ventilator 35 05/20/22 23:48 35.9 05/20/22 23:00 83 22 96 Mechanical Ventilator 35.00 05/20/22 22:24 73 22 94 35 05/20/22 22:00 94 22 94 Mechanical Ventilator 35.00 05/20/22 21:29 38.1 05/20/22 21:29 101 133/53 05/20/22 21:00 115 22 93 Mechanical Ventilator 35.00 05/20/22 20:00 100 22 94 Mechanical Ventilator 35.00 05/20/22 20:00 35 05/20/22 20:00 95 Mechanical Ventilator 35 05/20/22 19:51 38.6 05/20/22 19:11 113 22 94 35 05/20/22 19:00 95 22 93 Mechanical Ventilator 35.00 05/20/22 19:00 111 05/20/22 18:42 80 128/47 05/20/22 18:27 80 128/47 05/20/22 18:00 87 29 93 Mechanical Ventilator 35.00 131/50 (77) 05/20/22 17:00 109 22 94 Mechanical Ventilator 35.00 125/56 (79) 05/20/22 16:43 95 Mechanical Ventilator 35 05/20/22 16:00 37.0 05/20/22 16:00 86 22 93 Mechanical Ventilator 35.00 138/51 (80) 05/20/22 15:40 86 138/51 05/20/22 15:07 79 119/48 05/20/22 15:00 96 22 91 Mechanical Ventilator 35.00 118/53 (74) 05/20/22 14:38 79 22 96 35 05/20/22 14:32 35 05/20/22 14:28 75 22 95 35 05/20/22 14:00 82 22 94 Mechanical Ventilator 35.00 101/54 (70) 05/20/22 13:00 75 15 97 Mechanical Ventilator 35.00 150/53 (85) 05/20/22 12:56 83 05/20/22 12:45 75 150/53 05/20/22 12:19 36.5 05/20/22 12:15 96 Mechanical Ventilator 35 05/20/22 12:01 36.8 05/20/22 12:01 81 152/63 05/20/22 12:00 87 15 94 Mechanical Ventilator 35.00 154/50 (84) 05/20/22 12:00 35 05/20/22 11:53 81 152/63 05/20/22 11:00 80 18 100 Mechanical Ventilator 35.00 154/56 (88) 05/20/22 10:54 82 22 92 35 05/20/22 10:00 107 8 94 Mechanical Ventilator 35.00 132/37 (68) I & O 05/21/22 07:00 Intake Total 3980 ml Output Total 1925 ml Balance 2055 ml Height & Weight Height: '" Weight: lbs. oz. kg; 29.77 BMI Method: General Appearance: No Apparent Distress (but sedated and intubated) HEENT: PERRL/EOMI Neck: Supple Respiratory: No Accessory Muscle Use, Crackles (in bases and decreased BS) Cardiovascular: Regular Rate, Rhythm Capillary Refill: Greater Than 3 Seconds Gastrointestinal: soft Extremity: No Pedal Edema Neurologic/Psychiatric: Other (Noncommunicating due to intubation) Skin: Normal Color Results Lab Laboratory Tests 05/19/22 15:35 05/20/22 02:54 12/19/22 04:05 Assessment/Plan Assessment/Plan as above Critical Care: Ventilator Management Time spent with patient (mins): 33 JELENA ISAAC MD May 21, 2022 09:19
[2022-05-21] MEDS ORDERED: SODIUM PHOSPHATE INJ 30 MM in NS (IVPB) 250 ML INJ NR (09:30)
--- NOTE | 2022-05-21 09:40 | Cardiology Progress Note ---
Subjective Date Seen by Provider: May 21, 2022 Time Seen by Provider: 09:39 Subjective/Events-last exam Patient was seen at bedside, ventilator dependent. Review of Systems General: Other (Unable to provide review of system) Objective-Cardiology Exam Last Set of Vital Signs Vital Signs 05/21/22 05/21/22 05/21/22 05/21/22 02:43 06:52 07:00 07:13 Temp 36.5 Pulse 92 Resp 22 B/P (MAP) 124/48 Pulse Ox 95 O2 Delivery Mechanical Ventilator O2 Flow Rate 35.00 FiO2 35 I&O Intake and Output 05/21/22 00:00 Intake Total 3650 ml Output Total 1775 ml Balance 1875 ml Intake Oral 0 ml IV Total 2050 ml Tube Feeding 1200 ml Other 400 ml Output Urine Total 1775 ml General: Other (Sedated and intubated) HEENT: Atraumatic Neck: Supple Lungs: Normal Air Movement, Other (Bilateral rhonchi) Heart: Regular Rate, Normal S1, Normal S2 Abdomen: Normal Bowel Sounds Extremities: No Edema, Other Skin: No Rashes Neuro: Other (Sedated and intubated) Psych/Mental Status: Other (Sedated and intubated) Results Lab Laboratory Tests 05/21/22 04:05 A/P-Cardiology Admission Diagnosis Acute respiratory failure Severe hypoxemia Septic shock COPD Assessment/Plan Acute respiratory failure, ventilator dependent, progressed with pulmonary infiltrate. Receiving cefepime Ventilator dependent, failed weaning attempt. Managed by eICU and medical team Status post cardiac arrest secondary to bradycardia then asystole, most probably secondary to hypoxemia. No sign of acute myocardial infarction on his EKG Elevated troponin, type II myocardial infarction probably secondary to severe hypoxemia and severe anemia. Conservative management, no changes are recommended Sepsis with septic shock. Blood pressure is improving, currently on Levophed. Failed weaning off Levophed. Continue with IV fluid and attempt to wean him off pressors Hyponatremia, improving slowly. 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 2D echo was done at bedside showing normal LV size with mild hypokinesia, ejection fraction 45 to 50%. Pulmonary artery pressure appears to be 25 to 30 mmHg. No signs of cardiogenic shocks. Lactic acidosis, persistent secondary to sepsis, worsening postcode Better today Acute shock liver, elevated liver enzymes after cardiac arrest. Acute renal failure, probably secondary to sepsis and hypoxemia Electrolytes imbalance. Severe anemia, continue to monitor H&H FROYLAN,BASHAR J MD May 21, 2022 09:40
[2022-05-21] MEDS ORDERED: HYPOCHLOROUS ACID/NaCl (VASHE) 250 ML IR PRN (10:00)
[2022-05-21] MEDS: fentaNYL INJ 100 MCG/2 ML AMP IVP PRN (10:36)
[2022-05-21] MEDS: MICONAZOLE 2% POWDER (DESENEX AF) 90 GM TOP SCH ×2 (10:37→21:54)
[2022-05-22] MEDS: CEFEPIME INJECTION 1,000 MG in NS (IVPB) 50 ML IV SCH ×3 (00:05→12:57)
[2022-05-22] MEDS: NOREPINEPHRINE 8 MG/250 ML 250 ML IV SCH ×2 (00:30→06:12)
[2022-05-22] MEDS: PROPOFOL DRIP (ICU) 100 ML IV SCH ×7 (01:16→21:08)
[2022-05-22 03:15] VITALS: BP 121/50
[2022-05-22] MEDS: RT-ALBUTEROL/IPRATROPIUM 3 ML (DUONEB) VIAL INH SCH ×6 (03:15→22:08)
[2022-05-22 05:13] LABS: ABG BASE EXCESS 2.7 MMOL/L (-2.5-2.5); ABG OXYGEN SATURATION 96 % (94-100); ABG PCO2 50 MMHG (35-45); ABG PH 7.36 (7.37-7.43); ABG PO2 84 MMHG (79-93); ABG TCO2 29.2 MMOL/L (21.0-31.0)
[2022-05-22 05:27] LABS: BASOPHILS % (AUTO) 0 % (0-10); EOSINOPHILS # (AUTO) 0.3 10^3/uL (0.0-0.3); EOSINOPHILS % (AUTO) 3 % (0-10); HEMATOCRIT 29 % (40-54); HEMOGLOBIN 8.5 g/dL (13.3-17.7); LYMPHOCYTES # (AUTO) 0.9 10^3/uL (1.0-4.0); LYMPHOCYTES % (AUTO) 9 % (12-44); MEAN CORPUSCULAR HEMOGLOBIN 23 pg (25-34); MEAN CORPUSCULAR HGB CONC 30 g/dL (32-36); MEAN CORPUSCULAR VOLUME 78 fL (80-99); MEAN PLATELET VOLUME 9.5 fL (9.0-12.2); MONOCYTES # (AUTO) 0.7 10^3/uL (0.0-1.0); MONOCYTES % (AUTO) 8 % (0-12); NEUTROPHILS # (AUTO) 7.3 10^3/uL (1.8-7.8); NEUTROPHILS % (AUTO) 79 % (42-75); PLATELET COUNT 282 10^3/uL (130-400); WHITE BLOOD COUNT 9.2 10^3/uL (4.3-11.0)
[2022-05-22 05:28] LABS: ALLENS TEST YES-POS; PATIENT TEMP 36.9; VENTILATOR NO
[2022-05-22 05:44] LABS: ALBUMIN 2.3 GM/DL (3.2-4.5)
[2022-05-22 05:47] LABS: TOTAL PROTEIN 5.6 GM/DL (6.4-8.2)
[2022-05-22 05:48] LABS: BILIRUBIN,TOTAL 0.5 MG/DL (0.1-1.0)
[2022-05-22 05:50] LABS: PHOSPHORUS 1.6 MG/DL (2.3-4.7)
[2022-05-22 05:51] LABS: CREATININE SERUM 0.63 MG/DL (0.60-1.30)
[2022-05-22 05:53] LABS: MAGNESIUM 1.9 MG/DL (1.6-2.4)
[2022-05-22] MEDS: MAGNESIUM 1 GM/100 ML IVPB 100 ML IV SCH (05:59)
[2022-05-22] MEDS: KCL 20 MEQ TAB (K-DUR) PO SCH (05:59)
[2022-05-22] MEDS: POTASSIUM CL 10MEQ/50ML IVPB 50 ML IV SCH (05:59)
[2022-05-22] MEDS: EPINEPHrine 1 MG INJECTION 4 MG in NS (IVPB) 246 ML IV SCH ×3 (06:05→20:14)
[2022-05-22] MEDS: inSUlin ASPART (NovoLOG) 1 UNIT/0.01 ML (CHARGE PER UNIT) SC SCH ×3 (06:12→17:55)
[2022-05-22 06:23] VITALS: BP 121/58
--- NOTE | 2022-05-22 06:47 | Occ Therapy Progress Note ---
Therapy Progress Note Pt currently intubated. OT to monitor pt's status then will initiate treatment when pt is medically stable and able to actively participate in skilled therapy. JORDEN CURRY May 22, 2022 06:47
--- NOTE | 2022-05-22 07:15 | Progress Note ---
Subjective Date Seen by a Provider: May 22, 2022 Time Seen by a Provider: 06:45 Subjective/Events-last exam patient seen at bedside this morning. He is still mechanically ventilated. Objective Exam Vital Signs Date Time Temp Pulse Resp B/P (MAP) Pulse Ox O2 Delivery O2 Flow Rate FiO2 05/22/22 06:23 73 22 96 35 05/22/22 06:12 76 121/50 05/22/22 06:00 68 22 96 Mechanical Ventilator 35.00 05/22/22 05:16 76 121/50 05/22/22 05:00 76 22 94 Mechanical Ventilator 35.00 05/22/22 04:12 70 121/50 05/22/22 04:00 36.9 05/22/22 04:00 92 22 94 Mechanical Ventilator 35.00 05/22/22 04:00 35 05/22/22 04:00 97 Mechanical Ventilator 35 05/22/22 03:15 70 22 96 35 05/22/22 03:00 105 22 97 Mechanical Ventilator 35.00 05/22/22 02:00 74 22 96 Mechanical Ventilator 35.00 05/22/22 01:54 70 121/50 05/22/22 01:16 80 128/52 05/22/22 01:00 80 05/22/22 01:00 80 22 94 Mechanical Ventilator 35.00 05/22/22 00:00 93 22 94 Mechanical Ventilator 35.00 05/22/22 00:00 36.6 05/22/22 00:00 35 05/21/22 23:59 97 Mechanical Ventilator 35 05/21/22 23:00 70 22 96 Mechanical Ventilator 35.00 05/21/22 22:45 80 22 97 35 05/21/22 22:16 80 128/52 05/21/22 22:00 71 22 96 Mechanical Ventilator 35.00 05/21/22 21:54 89 130/57 05/21/22 21:00 86 22 94 Mechanical Ventilator 35.00 05/21/22 20:00 96 Mechanical Ventilator 35 05/21/22 20:00 112 22 93 Mechanical Ventilator 35.00 05/21/22 20:00 35 05/21/22 19:16 36.8 Mechanical Ventilator 35.00 05/21/22 19:00 108 05/21/22 19:00 89 130/57 05/21/22 19:00 110 22 93 Mechanical Ventilator 35.00 05/21/22 18:44 89 22 94 35 05/21/22 18:16 93 140/62 05/21/22 18:00 93 22 94 Mechanical Ventilator 35.00 05/21/22 17:00 73 22 93 Mechanical Ventilator 35.00 05/21/22 16:23 35 05/21/22 16:18 94 Mechanical Ventilator 35 05/21/22 16:00 36.8 05/21/22 16:00 70 22 94 Mechanical Ventilator 35.00 05/21/22 15:00 71 22 93 Mechanical Ventilator 35.00 05/21/22 14:33 82 22 91 35 05/21/22 14:00 93 23 92 Mechanical Ventilator 35.00 05/21/22 13:00 75 22 96 Mechanical Ventilator 35.00 05/21/22 12:28 80 05/21/22 12:02 94 Mechanical Ventilator 35 05/21/22 12:00 77 22 94 Mechanical Ventilator 35.00 05/21/22 12:00 37.1 05/21/22 12:00 35 05/21/22 11:56 36.2 05/21/22 11:07 68 116/58 05/21/22 11:00 68 22 92 Mechanical Ventilator 35.00 05/21/22 10:36 100 37 81 35 05/21/22 10:35 68 131/51 05/21/22 10:00 88 18 95 Mechanical Ventilator 35.00 05/21/22 09:55 92 22 95 35 05/21/22 09:53 92 132/51 05/21/22 09:00 103 22 95 Mechanical Ventilator 35.00 05/21/22 08:15 35 05/21/22 08:00 96 22 94 Mechanical Ventilator 35.00 05/21/22 07:32 92 Mechanical Ventilator 35 I & O 05/22/22 07:00 Intake Total 3830 ml Output Total 1800 ml Balance 2030 ml Capillary Refill : Greater Than 3 Seconds General Appearance: No Apparent Distress Neck: Supple Respiratory: Crackles (in basis), Decreased Breath Sounds Cardiovascular: Regular Rate, Rhythm Gastrointestinal: soft Other comments left-sided chest wall anterior with discoloration Results Lab Laboratory Tests 05/21/22 11:55: Glucometer 183H 05/21/22 12:32: Lab Scanned Report Transfusion Reaction Form 05/21/22 18:15: Glucometer 176H 05/21/22 23:52: Glucometer 200H 05/22/22 05:00: White Blood Count 9.2, Red Blood Count 3.70L, Hemoglobin 8.5L, Hematocrit 29L, Mean Corpuscular Volume 78L, Mean Corpuscular Hemoglobin 23L, Mean Corpuscular Hemoglobin Concent 30L, Red Cell Distribution Width 20.2H, Platelet Count 282, Mean Platelet Volume 9.5, Immature Granulocyte % (Auto) 2, Neutrophils (%) (Auto) 79H, Lymphocytes (%) (Auto) 9L, Monocytes (%) (Auto) 8, Eosinophils (%) (Auto) 3, Basophils (%) (Auto) 0, Neutrophils # (Auto) 7.3, Lymphocytes # (Auto) 0.9L, Monocytes # (Auto) 0.7, Eosinophils # (Auto) 0.3, Basophils # (Auto) 0.0, Immature Granulocyte # (Auto) 0.1, Blood Gas Puncture Site RIGHT ARTLINE, Blood Gas Patient Temperature 36.9, Arterial Blood pH 7.36L, Arterial Blood Partial Pressure CO2 50H, Arterial Blood Partial Pressure O2 84, Arterial Blood HCO3 28H , Arterial Blood Total CO2 29.2, Arterial Blood Oxygen Saturation 96, Arterial Blood Base Excess 2.7H, Chuck Test YES-POS, Blood Gas Ventilator Setting NO, Blood Gas Inspired Oxygen NA, Sodium Level 133L, Potassium Level 4.0, Chloride Level 101, Carbon Dioxide Level 24, Anion Gap 8, Blood Urea Nitrogen 15, Creatinine 0.63, Estimat Glomerular Filtration Rate 99, BUN/Creatinine Ratio 24, Glucose Level 228H, Calcium Level 7.0L, Corrected Calcium 8.4L, Phosphorus Level 1.6L, Magnesium Level 1.9, Total Bilirubin 0.5, Aspartate Amino Transf (AST/SGOT) 43H, Alanine Aminotransferase (ALT/SGPT) 107H, Alkaline Phosphatase 76, Total Protein 5.6L, Albumin 2.3L Microbiology 05/20/22 Gram Stain - Final, Resulted 05/20/22 Sputum Culture - Preliminary, Resulted Staphylococcus aureus 05/20/22 Blood Culture - Preliminary, Resulted No growth 05/20/22 Urine Culture - Preliminary, Resulted Culture In Progress Assessment/Plan Assessment/Plan Assess & Plan/Chief Complaint 1. Sepsis--CODE BLUE on floor on day of admission -He was started on cefepime in the emergency department -IV fluids continue -eICU consultation 05/18 -White blood cell count noted to be elevated but a lot of this may have been stress from the code as well -He continues on IV fluids 05/22 -blood cultures revealed staph -IV fluids at 75 cc per hour 2. Pneumonia -Cefepime 05/18 -day #2 cefepime 1000 mg IV every 6 hours 05/21/2022 -Day #5 cefepime 05/22 -day #6 cefepime 3. Hyponatremia -We will follow sodium in a.m. since he has now been receiving IV fluids 05/18 -Hyponatremic continues this may have been long-standing 4. Anemia -Plan on transfusion with 2 units and recheck CBC 05/18 -Patient received only 1 unit last evening -Appreciate all of the eICU help 5. Elevated troponin -Cardiology consultation 05/18 -appreciate Dr. Driscoll consultation and input 6. Malignant melanoma -Recently diagnosed 05/21 -CT of the chest yesterday revealed mass to the right adrenal gland. I spoke with his son today regarding the findings. Will consult oncology 05/22 -Oncology consultation today 7. Diabetes mellitusknown 05/18 -he is currently on sliding scale insulin 8. Hyperlipidemia 9. History of hypertension currently hypotensive however 05/18 -Blood pressure overall is improved as of this morning Clinical Quality Measures Admission Status Admission Dx 1. Sepsis 2. Pneumonia 3. Hyponatremia 4. Anemia 5. Malignant melanoma 6. Diabetes mellitusknown 7. Hyperlipidemia 8. History of hypertension currently hypotensive however STEPHANIE IRBY MD May 22, 2022 07:15
--- NOTE | 2022-05-22 07:24 | Physical Therapy Progress Note ---
Therapy Progress Note Patient is sedated and intubated per report. PT will monitor patient status and initiate treatment when patient is deemed medically stable and able to actively participate with skilled therapy. ANDREY TAVERA PT May 22, 2022 07:24
--- NOTE | 2022-05-22 08:22 | Cardiology Progress Note ---
Subjective Date Seen by Provider: May 22, 2022 Time Seen by Provider: 08:21 Subjective/Events-last exam Patient was seen at bedside, laying down comfortably Ventilator dependent, failed weaning yesterday Objective-Cardiology Exam Last Set of Vital Signs Vital Signs 05/22/22 05/22/22 05/22/22 06:23 07:36 08:00 Temp 37.0 Pulse 74 Resp 22 B/P (MAP) 122/57 Pulse Ox 96 O2 Delivery Mechanical Ventilator O2 Flow Rate 35.00 FiO2 35 I&O Intake and Output 05/22/22 00:00 Intake Total 4030 ml Output Total 1925 ml Balance 2105 ml Intake Oral 0 ml IV Total 2350 ml Tube Feeding 1080 ml Other 600 ml Output Urine Total 1925 ml General: Other (Sedated and intubated) HEENT: Atraumatic Neck: Supple Lungs: Normal Air Movement, Other (Bilateral rhonchi) Heart: Regular Rate, Normal S1, Normal S2 Abdomen: Normal Bowel Sounds Extremities: No Edema, Other Skin: No Rashes Neuro: Other (Sedated and intubated) Psych/Mental Status: Other (Sedated and intubated) Results Lab Laboratory Tests 05/22/22 05:00 A/P-Cardiology Admission Diagnosis Acute respiratory failure Severe hypoxemia Septic shock COPD Assessment/Plan Acute respiratory failure, ventilator dependent, progressed with pulmonary infiltrate. Receiving cefepime Ventilator dependent, failed weaning attempt. Managed by eICU and medical team Consider transfer to a tertiary care center Status post cardiac arrest secondary to bradycardia then asystole, most probably secondary to hypoxemia. No sign of acute myocardial infarction on his EKG Elevated troponin, type II myocardial infarction probably secondary to severe hypoxemia and severe anemia. Conservative management, no changes are recommended Metastatic melanoma, oncology were consulted, managed by medical team Sepsis with septic shock. Blood pressure is improving, currently on Levophed. Failed weaning off Levophed. Continue with IV fluid and attempt to wean him off pressors Hyponatremia, improving slowly. 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 2D echo was done at bedside showing normal LV size with mild hypokinesia, ejection fraction 45 to 50%. Pulmonary artery pressure appears to be 25 to 30 mmHg. No signs of cardiogenic shocks. Lactic acidosis, persistent secondary to sepsis, worsening postcode Better today Acute shock liver, elevated liver enzymes after cardiac arrest. Acute renal failure, probably secondary to sepsis and hypoxemia Electrolytes imbalance. Severe anemia, continue to monitor H&H ANH GALEANO MD May 22, 2022 08:22
[2022-05-22] MEDS: VANCOMYCIN 1 GM/NS 250 ML IVPB IV SCH ×4 (08:33→20:07)
[2022-05-22] MEDS: MICONAZOLE 2% POWDER (DESENEX AF) 90 GM TOP SCH ×2 (08:33→20:07)
[2022-05-22] MEDS: ENOXAPARIN 40 MG/0.4 ML (LOVENOX) SYR SC SCH (08:33)
[2022-05-22] MEDS: PANTOPRAZOLE 40 MG (PROTONIX) VIAL IV SCH (08:33)
[2022-05-22 09:47] VITALS: BP 118/50
--- NOTE | 2022-05-22 10:23 | Tele-ICU Progress Note ---
Subjective Date Seen by a Provider: May 22, 2022 Time Seen by a Provider: 10:23 Subjective/Events-last exam (Tele-ICU Physician , Progress Note ) Service provided via interactive audio and video telecommunications E-CARE system to a patient admitted to ICU bed in [facility]. Available chart/ vitals / labs / Images reviewed Video assessment done using teleICU camera, rest of exam as per RN Discussed with RN Events overnight : Afebrile hemodynamically stable , STILL ON LEVO Respiratory - I/O =pos Drips: ns 30 Pressors- levo 0.17 VENT SETTINGS and ABG reviewed Sedation: RASS discussed with RN , propofol 55, reported to follow commands off sedation SBTreviewed possible contraindications including Cardiovascular Stability /Sedation Score / FI02/PEEP / ABG / CXR/ secretions Consultants: Hospital course: 05/17 -admitted with PNA from ER to medical floor --> card arrest , intubated --> to ICU , s/p transfuse 1 u Prbc 05/04- still on levo , failed SBT A/P Cardiac arrest 05/17- s/p ACLS x 2 rounds ( bradycardia then asystole) - intubated on medical floor 05/17 - follow cxommands as per RN - cards follow Acute resp failure - intubated post arrest 05/17 -AC 22 tv 500 40% peep 5 --SBT 05/21 - will repeat today SBT again -- + secretions ETT- cont nebs Shock -septic most likely - OFF epi gtt , levo gtt to wean -s/p transfusion total 3 u Prbc - stable - WILL CHECK CORTISOL TODAY ,? adrenal insufficiency , consider steroids - follow RIGHT PNA ( with fever and leukocytosis) - NEG covid and flu - cont cefepime -urine and blood cx pending -Sputum sputum PRESUMPTIVE MSSA 05/20 - CONT ABX ( CT chest 05/20- small RLL PNA , small effusions Anemia ( chronic ) - hb 6.7 -- transfused 3 u Prbc 1 - Hb stable now , no active bleeding now Hyponatremia 121 on admission ( baseline Na 130 , last Na 126 on 05/09) - follow closely , now 133 Elv trop - ECHO 06/17 EF 45 % RVSP 25 - as per cards Elev LFT - mild on admission , post arrest : with ischemic hepatitis - IMPROVING Metastatic melanoma ( lesion of the left upper chest wall - Tx with immunotherapy - CT reviewed - oncology consullted - will follow COPD, - oxygen 2-3 L home 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 Discussed with RN to reach out if any questions or concerns A total of 40 minutes of critical care time was devoted to this patient today, required to treat and/or prevent further deterioration of critical care condition ( as above ) Sepsis Event Evaluation Height, Weight, BMI Height: '" Weight: lbs. oz. kg; 29.77 BMI Method: Exam Exam Patient acknowledged, consented, and participated in this virtual visit which was conducted using real time audio/video Vital Signs Date Time Temp Pulse Resp B/P (MAP) Pulse Ox O2 Delivery O2 Flow Rate FiO2 05/22/22 09:47 66 22 94 35 05/22/22 08:15 74 122/57 05/22/22 08:00 74 22 96 Mechanical Ventilator 35.00 05/22/22 08:00 35 05/22/22 08:00 37.0 05/22/22 07:46 96 Mechanical Ventilator 35 05/22/22 07:44 36.3 05/22/22 07:36 73 122/57 05/22/22 07:00 70 22 96 Mechanical Ventilator 35.00 05/22/22 07:00 70 05/22/22 06:23 73 22 96 35 05/22/22 06:12 76 121/50 05/22/22 06:00 68 22 96 Mechanical Ventilator 35.00 05/22/22 05:16 76 121/50 05/22/22 05:00 76 22 94 Mechanical Ventilator 35.00 05/22/22 04:12 70 121/50 05/22/22 04:00 36.9 05/22/22 04:00 92 22 94 Mechanical Ventilator 35.00 05/22/22 04:00 35 05/22/22 04:00 97 Mechanical Ventilator 35 05/22/22 03:15 70 22 96 35 05/22/22 03:00 105 22 97 Mechanical Ventilator 35.00 05/22/22 02:00 74 22 96 Mechanical Ventilator 35.00 05/22/22 01:54 70 121/50 05/22/22 01:16 80 128/52 05/22/22 01:00 80 05/22/22 01:00 80 22 94 Mechanical Ventilator 35.00 05/22/22 00:00 93 22 94 Mechanical Ventilator 35.00 05/22/22 00:00 36.6 05/22/22 00:00 35 05/21/22 23:59 97 Mechanical Ventilator 35 05/21/22 23:00 70 22 96 Mechanical Ventilator 35.00 05/21/22 22:45 80 22 97 35 05/21/22 22:16 80 128/52 05/21/22 22:00 71 22 96 Mechanical Ventilator 35.00 05/21/22 21:54 89 130/57 05/21/22 21:00 86 22 94 Mechanical Ventilator 35.00 05/21/22 20:00 96 Mechanical Ventilator 35 05/21/22 20:00 112 22 93 Mechanical Ventilator 35.00 05/21/22 20:00 35 05/21/22 19:16 36.8 Mechanical Ventilator 35.00 05/21/22 19:00 108 05/21/22 19:00 89 130/57 05/21/22 19:00 110 22 93 Mechanical Ventilator 35.00 05/21/22 18:44 89 22 94 35 05/21/22 18:16 93 140/62 05/21/22 18:00 93 22 94 Mechanical Ventilator 35.00 05/21/22 17:00 73 22 93 Mechanical Ventilator 35.00 05/21/22 16:23 35 05/21/22 16:18 94 Mechanical Ventilator 35 05/21/22 16:00 36.8 05/21/22 16:00 70 22 94 Mechanical Ventilator 35.00 05/21/22 15:00 71 22 93 Mechanical Ventilator 35.00 05/21/22 14:33 82 22 91 35 05/21/22 14:00 93 23 92 Mechanical Ventilator 35.00 05/21/22 13:00 75 22 96 Mechanical Ventilator 35.00 05/21/22 12:28 80 05/21/22 12:02 94 Mechanical Ventilator 35 05/21/22 12:00 77 22 94 Mechanical Ventilator 35.00 05/21/22 12:00 37.1 05/21/22 12:00 35 05/21/22 11:56 36.2 05/21/22 11:07 68 116/58 05/21/22 11:00 68 22 92 Mechanical Ventilator 35.00 05/21/22 10:36 100 37 81 35 05/21/22 10:35 68 131/51 I & O 05/22/22 07:00 Intake Total 3830 ml Output Total 1800 ml Balance 2030 ml Height & Weight Height: '" Weight: lbs. oz. kg; 29.77 BMI Method: General Appearance: No Apparent Distress HEENT: PERRL/EOMI Neck: Supple Respiratory: Crackles (in basis), Decreased Breath Sounds Cardiovascular: Regular Rate, Rhythm Capillary Refill: Greater Than 3 Seconds Gastrointestinal: soft Extremity: No Pedal Edema Neurologic/Psychiatric: Other (Noncommunicating due to intubation) Skin: Normal Color Results Lab Laboratory Tests 05/21/22 04:05 05/22/22 05:00 Assessment/Plan Assessment/Plan 1 JINA GREENFIELD MD May 22, 2022 10:23
[2022-05-22] MEDS: NS IV 1000 ML 1,000 ML IV SCH (13:03)
[2022-05-22 14:24] VITALS: BP 103/49
[2022-05-22 18:30] VITALS: BP 144/51
[2022-05-22 22:08] VITALS: BP 130/53
[2022-05-23] MEDS: PROPOFOL DRIP (ICU) 100 ML IV SCH ×6 (00:49→23:59)
[2022-05-23] MEDS: inSUlin ASPART (NovoLOG) 1 UNIT/0.01 ML (CHARGE PER UNIT) SC SCH ×5 (00:49→23:39)
[2022-05-23] MEDS: RT-ALBUTEROL/IPRATROPIUM 3 ML (DUONEB) VIAL INH SCH ×6 (02:24→23:00)
[2022-05-23 02:25] VITALS: BP 130/76
[2022-05-23] MEDS: fentaNYL INJ 100 MCG/2 ML AMP IVP PRN (02:38)
[2022-05-23] MEDS: EPINEPHrine 1 MG INJECTION 4 MG in NS (IVPB) 246 ML IV SCH ×3 (03:35→21:03)
[2022-05-23] MEDS: NS IV 1000 ML 1,000 ML IV SCH ×2 (04:28→18:45)
[2022-05-23 04:58] LABS: BASOPHILS % (AUTO) 0 % (0-10); EOSINOPHILS # (AUTO) 0.3 10^3/uL (0.0-0.3); EOSINOPHILS % (AUTO) 3 % (0-10); HEMATOCRIT 28 % (40-54); HEMOGLOBIN 8.3 g/dL (13.3-17.7); LYMPHOCYTES % (AUTO) 10 % (12-44); MEAN CORPUSCULAR HEMOGLOBIN 23 pg (25-34); MEAN CORPUSCULAR HGB CONC 30 g/dL (32-36); MEAN CORPUSCULAR VOLUME 78 fL (80-99); MONOCYTES # (AUTO) 0.8 10^3/uL (0.0-1.0); MONOCYTES % (AUTO) 8 % (0-12); NEUTROPHILS # (AUTO) 7.6 10^3/uL (1.8-7.8); NEUTROPHILS % (AUTO) 77 % (42-75); PLATELET COUNT 300 10^3/uL (130-400); WHITE BLOOD COUNT 9.9 10^3/uL (4.3-11.0)
[2022-05-23] MEDS: NOREPINEPHRINE 8 MG/250 ML 250 ML IV SCH ×2 (05:13→08:51)
[2022-05-23] MEDS: POTASSIUM CL 10MEQ/50ML IVPB 50 ML IV SCH (05:13)
[2022-05-23] MEDS: MAGNESIUM 1 GM/100 ML IVPB 100 ML IV SCH (05:14)
[2022-05-23] MEDS: KCL 20 MEQ TAB (K-DUR) PO SCH (05:14)
[2022-05-23 05:19] LABS: ABG BASE EXCESS 3.5 MMOL/L (-2.5-2.5); ABG OXYGEN SATURATION 97 % (94-100); ABG PCO2 45 MMHG (35-45); ABG PH 7.41 (7.37-7.43); ABG PO2 100 MMHG (79-93); ABG TCO2 29.4 MMOL/L (21.0-31.0)
[2022-05-23 05:20] LABS: ALLENS TEST YES-POS; INSPIRED O2 35%; PATIENT TEMP 36.1; VENTILATOR YES
[2022-05-23 05:52] LABS: ALBUMIN 2.3 GM/DL (3.2-4.5); POTASSIUM 4.3 MMOL/L (3.6-5.0)
[2022-05-23 05:54] LABS: CALCIUM 7.1 MG/DL (8.5-10.1)
[2022-05-23 05:55] LABS: TOTAL PROTEIN 5.5 GM/DL (6.4-8.2)
[2022-05-23 05:57] LABS: BILIRUBIN,TOTAL 0.4 MG/DL (0.1-1.0)
[2022-05-23 05:58] LABS: PHOSPHORUS 1.3 MG/DL (2.3-4.7)
[2022-05-23 05:59] LABS: CREATININE SERUM 0.59 MG/DL (0.60-1.30)
[2022-05-23 06:32] VITALS: BP 162/54
--- NOTE | 2022-05-23 06:48 | Occ Therapy Progress Note ---
Therapy Progress Note Pt currently intubated. OT to monitor pt's status then will initiate treatment when pt is medically stable and able to actively participate in skilled therapy. OJRDEN CURRY May 23, 2022 06:48
--- NOTE | 2022-05-23 07:36 | Progress Note ---
Subjective Date Seen by a Provider: May 23, 2022 Time Seen by a Provider: 06:50 Subjective/Events-last exam patient is pretty much unchanged from yesterday. There was no SBT performed yesterday. Apparently a SBT will be performed today. He did have low-grade fever last night. He is currently covered with cefepime and vancomycin. Objective Exam Vital Signs Date Time Temp Pulse Resp B/P (MAP) Pulse Ox O2 Delivery O2 Flow Rate FiO2 05/23/22 06:48 101 162/54 05/23/22 06:32 101 32 94 35 05/23/22 06:00 79 22 96 Mechanical Ventilator 35.00 05/23/22 05:00 63 22 97 Mechanical Ventilator 35.00 05/23/22 04:49 72 130/76 05/23/22 04:00 35 05/23/22 04:00 58 22 97 Mechanical Ventilator 35.00 05/23/22 04:00 94 Mechanical Ventilator 35 05/23/22 03:29 36.7 05/23/22 03:28 72 130/76 05/23/22 03:00 72 22 93 Mechanical Ventilator 35.00 05/23/22 02:25 78 22 97 35 05/23/22 02:00 89 22 96 Mechanical Ventilator 35.00 05/23/22 01:00 74 05/23/22 01:00 58 22 96 Mechanical Ventilator 35.00 05/23/22 00:49 60 130/53 05/23/22 00:49 60 130/53 05/23/22 00:00 75 95 96 Mechanical Ventilator 35.00 05/23/22 00:00 35 05/22/22 23:59 94 Mechanical Ventilator 35 05/22/22 23:53 36.1 05/22/22 23:00 65 22 96 Mechanical Ventilator 35.00 05/22/22 22:16 60 130/53 05/22/22 22:08 60 22 97 35 05/22/22 22:00 65 22 96 Mechanical Ventilator 35.00 05/22/22 21:08 93 144/51 05/22/22 21:00 73 22 95 Mechanical Ventilator 35.00 05/22/22 20:00 93 Mechanical Ventilator 35 05/22/22 20:00 93 22 94 Mechanical Ventilator 35.00 05/22/22 20:00 35 05/22/22 19:27 37.8 Mechanical Ventilator 35.00 05/22/22 19:00 107 23 94 Mechanical Ventilator 35.00 05/22/22 19:00 90 05/22/22 18:30 83 22 94 35 05/22/22 18:22 76 103/49 05/22/22 18:16 76 103/49 05/22/22 18:00 82 22 94 Mechanical Ventilator 35.00 05/22/22 17:00 76 22 94 Mechanical Ventilator 35.00 05/22/22 16:11 94 Mechanical Ventilator 35 05/22/22 16:00 35 05/22/22 16:00 84 22 93 Mechanical Ventilator 35.00 05/22/22 15:51 37.2 05/22/22 15:00 85 22 93 Mechanical Ventilator 35.00 05/22/22 14:24 77 22 92 35 05/22/22 14:14 75 131/51 05/22/22 14:13 76 103/49 05/22/22 14:00 75 22 94 Mechanical Ventilator 35.00 05/22/22 13:01 75 05/22/22 13:00 69 22 94 Mechanical Ventilator 35.00 05/22/22 12:00 103 22 94 Mechanical Ventilator 35.00 05/22/22 12:00 95 Mechanical Ventilator 35 05/22/22 12:00 35 05/22/22 11:40 75 120/47 05/22/22 11:00 112 22 94 Mechanical Ventilator 35.00 05/22/22 10:31 68 120/47 05/22/22 10:00 68 22 95 Mechanical Ventilator 35.00 05/22/22 09:47 66 22 94 35 05/22/22 09:00 70 22 96 Mechanical Ventilator 35.00 05/22/22 08:15 74 122/57 05/22/22 08:00 74 22 96 Mechanical Ventilator 35.00 05/22/22 08:00 35 05/22/22 08:00 37.0 05/22/22 07:46 96 Mechanical Ventilator 35 05/22/22 07:44 36.3 05/22/22 07:36 73 122/57 I & O 05/23/22 07:00 Intake Total 4680 ml Output Total 2025 ml Balance 2655 ml Capillary Refill : Greater Than 3 Seconds General Appearance: No Apparent Distress (but he is intubated and sedated) HEENT: Other (currently intubated) Neck: Supple Respiratory: Crackles (in basis), Decreased Breath Sounds Cardiovascular: Regular Rate, Rhythm Gastrointestinal: soft, distended (slightly) Extremity: Normal Capillary Refill Results Lab Laboratory Tests 05/22/22 10:25: Total Cortisol 10.3 05/22/22 11:41: Glucometer 227H 05/22/22 17:27: Glucometer 175H 05/22/22 23:23: Glucometer 198H 05/23/22 04:40: White Blood Count 9.9, Red Blood Count 3.59L, Hemoglobin 8.3L, Hematocrit 28L, Mean Corpuscular Volume 78L, Mean Corpuscular Hemoglobin 23L, Mean Corpuscular Hemoglobin Concent 30L, Red Cell Distribution Width 20.3H, Platelet Count 300, Mean Platelet Volume 9.0, Immature Granulocyte % (Auto) 2, Neutrophils (%) (Auto) 77H, Lymphocytes (%) (Auto) 10L, Monocytes (%) (Auto) 8, Eosinophils (%) (Auto) 3, Basophils (%) (Auto) 0, Neutrophils # (Auto) 7.6, Lymphocytes # (Auto) 1.0, Monocytes # (Auto) 0.8, Eosinophils # (Auto) 0.3, Basophils # (Auto) 0.0, Immature Granulocyte # (Auto) 0.2H, Blood Gas Puncture Site ARTLINE, Blood Gas Patient Temperature 36.1, Arterial Blood pH 7.41, Arterial Blood Partial Pressure CO2 45, Arterial Blood Partial Pressure O2 100H, Arterial Blood HCO3 28H, Arterial Blood Total CO2 29.4, Arterial Blood Oxygen Saturation 97, Arterial Blood Base Excess 3.5H, Chuck Test YES-POS, Blood Gas Ventilator Setting YES, Blood Gas Inspired Oxygen 35%, Sodium Level 136, Potassium Level 4.3, Chloride Level 104, Carbon Dioxide Level 22, Anion Gap 10, Blood Urea Nitrogen 15, Creatinine 0.59L, Estimat Glomerular Filtration Rate 101, BUN/Creatinine Ratio 25, Glucose Level 218H, Calcium Level 7.1L, Corrected Calcium 8.5, Phosphorus Level 1.3L, Magnesium Level 2.0, Total Bilirubin 0.4, Aspartate Amino Transf (AST/SGOT) 42H, Alanine Aminotransferase (ALT/SGPT) 82H, Alkaline Phosphatase 67, Total Protein 5.5L, Albumin 2.3L 05/23/22 05:47: Glucometer 230H Microbiology 05/20/22 Gram Stain - Final, Resulted 05/20/22 Sputum Culture - Preliminary, Resulted Staphylococcus aureus 05/20/22 Blood Culture - Preliminary, Resulted No growth 05/20/22 Urine Culture - Final, Complete NO GROWTH Assessment/Plan Assessment/Plan Assess & Plan/Chief Complaint 1. Sepsis--CODE BLUE on floor on day of admission -He was started on cefepime in the emergency department -IV fluids continue -eICU consultation 05/18 -White blood cell count noted to be elevated but a lot of this may have been stress from the code as well -He continues on IV fluids 05/22 -blood cultures revealed staph -IV fluids at 75 cc per hour 2. Pneumonia -Cefepime 05/18 -day #2 cefepime 1000 mg IV every 6 hours 05/21/2022 -Day #5 cefepime 05/22 -day #6 cefepime 05/23 -day #7 cefepime. Vancomycin added over the weekend -currently intubated but SBT today. Parameters are 35% oxygen and 5% PEEP 3. Hyponatremia -We will follow sodium in a.m. since he has now been receiving IV fluids 05/18 -Hyponatremic continues this may have been long-standing 4. Anemia -Plan on transfusion with 2 units and recheck CBC 05/18 -Patient received only 1 unit last evening -Appreciate all of the eICU help 5. Elevated troponin -Cardiology consultation 05/18 -appreciate Dr. Driscoll consultation and input 6. Malignant melanoma -Recently diagnosed 05/21 -CT of the chest yesterday revealed mass to the right adrenal gland. I spoke with his son today regarding the findings. Will consult oncology 05/22 -Oncology consultation today 05/23 -Dr. Parikh will restart patient on Keytruda after he is outpatient 7. Diabetes mellitusknown 05/18 -he is currently on sliding scale insulin 8. Hyperlipidemia 9. History of hypertension currently hypotensive however 05/18 -Blood pressure overall is improved as of this morning Clinical Quality Measures Admission Status Admission Dx 1. Sepsis 2. Pneumonia 3. Hyponatremia 4. Anemia 5. Malignant melanoma 6. Diabetes mellitusknown 7. Hyperlipidemia 8. History of hypertension currently hypotensive however STEPHANIE IRBY MD May 23, 2022 07:36
--- NOTE | 2022-05-23 07:54 | Physical Therapy Progress Note ---
Therapy Progress Note Patient is sedated and intubated per report. PT will monitor patient status and initiate treatment when patient is deemed medically stable and able to actively participate with skilled therapy. GRACIELA FERRARI PT May 23, 2022 07:54
--- NOTE | 2022-05-23 08:23 | Diagnostic Imaging Report ---
INDICATION: Respiratory distress, pneumonia and ventilator management. COMPARISON: 05/20/2022. FINDINGS: ET tube projects over the midthoracic trachea. IJ catheter is at the SVC stable. No pneumothorax. Similar small volumes of pleural fluid persist. Bilateral perihilar and basilar pulmonary opacities have shown no substantial change. While an element of atelectasis is present pneumonia is suspected. A component of edema superimposed could not be excluded. No pneumothorax. IMPRESSION: No substantial change in support apparatus and bilateral pleural-parenchymal opacities without pneumothorax. Dictated by: Dictated on workstation # [id number]
[2022-05-23] MEDS: PANTOPRAZOLE 40 MG (PROTONIX) VIAL IV SCH (08:51)
[2022-05-23] MEDS: MICONAZOLE 2% POWDER (DESENEX AF) 90 GM TOP SCH ×2 (08:52→20:52)
[2022-05-23] MEDS: ENOXAPARIN 40 MG/0.4 ML (LOVENOX) SYR SC SCH (08:52)
--- NOTE | 2022-05-23 09:03 | Cardiology Progress Note ---
Subjective Date Seen by Provider: May 23, 2022 Time Seen by Provider: 08:50 Subjective/Events-last exam Patient is intubated Objective-Cardiology Exam Last Set of Vital Signs Vital Signs 05/23/22 05/23/22 05/23/22 05/23/22 08:00 10:34 10:52 12:00 Temp 36.1 Pulse 86 Resp 18 B/P (MAP) 171/62 Pulse Ox 92 O2 Delivery Mechanical Ventilator O2 Flow Rate 35.00 FiO2 35 I&O Intake and Output 05/23/22 00:00 Intake Total 3680 ml Output Total 1975 ml Balance 1705 ml Intake Oral 0 ml IV Total 2000 ml Tube Feeding 1080 ml Other 600 ml Output Urine Total 1975 ml General: Other (Sedated and intubated) HEENT: Atraumatic Neck: Supple Lungs: Normal Air Movement, Other (Bilateral rhonchi) Heart: Regular Rate, Normal S1, Normal S2 Abdomen: Normal Bowel Sounds Extremities: No Edema, Other Skin: No Rashes Neuro: Other (Sedated and intubated) Psych/Mental Status: Other (Sedated and intubated) Results Lab Laboratory Tests 05/23/22 04:40 A/P-Cardiology Admission Diagnosis Acute respiratory failure Severe hypoxemia Septic shock COPD Assessment/Plan Acute respiratory failure, ventilator dependent, progressed with pulmonary infiltrate. Receiving cefepime Ventilator dependent, failed weaning attempt. Managed by eICU and medical team Consider transfer to a tertiary care center Status post cardiac arrest secondary to bradycardia then asystole, most probably secondary to hypoxemia. No sign of acute myocardial infarction on his EKG Elevated troponin, type II myocardial infarction probably secondary to severe hypoxemia and severe anemia. Conservative management, no changes are recommended Metastatic melanoma, oncology were consulted, managed by medical team Sepsis with septic shock. Blood pressure is improving, currently on Levophed. Failed weaning off Levophed. Continue with IV fluid and attempt to wean him off pressors Hyponatremia, improving slowly. 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 2D echo was done at bedside showing normal LV size with mild hypokinesia, ejection fraction 45 to 50%. Pulmonary artery pressure appears to be 25 to 30 mmHg. No signs of cardiogenic shocks. Lactic acidosis, persistent secondary to sepsis, worsening postcode Better today Acute shock liver, elevated liver enzymes after cardiac arrest. Acute renal failure, probably secondary to sepsis and hypoxemia Electrolytes imbalance. Severe anemia, continue to monitor H&H Supervisory-Addendum Brief Supervisory Addendum Participated in pt care: history, MDM, physical Personally performed: exam, history, MDM Care discussed with: KIMBERLY Results interpretation: Verified all documentation Notes: Patient was seen and evaluated with Javon, examination performed, management plan was discussed, agree with the current scribed note, I made few changes to the note using Italic font Patient was seen at bedside, sedated and intubated Still on Levophed, trying to wean him off Levophed and continue with weaning off ventilator. JAVON HENDRICKS May 23, 2022 09:02 ANH GALEANO MD May 23, 2022 12:38
--- NOTE | 2022-05-23 10:08 | Tele-ICU Progress Note ---
Subjective Date Seen by a Provider: May 23, 2022 Time Seen by a Provider: 10:08 Subjective/Events-last exam (Tele-ICU Physician , Progress Note ) Service provided via interactive audio and video telecommunications E-CARE system to a patient admitted to ICU bed in [facility]. Available chart/ vitals / labs / Images reviewed Video assessment done using teleICU camera, rest of exam as per RN Discussed with RN Events overnight : Afebrile hemodynamically stable , STILL ON LEVO Respiratory - I/O =pos Drips: ns 30 Pressors- levo 0.17 VENT SETTINGS and ABG reviewed Sedation: RASS discussed with RN , propofol 55, reported to follow commands off sedation SBTreviewed possible contraindications including Cardiovascular Stability /Sedation Score / FI02/PEEP / ABG / CXR/ secretions Consultants: anshu Hospital course: 05/17 -admitted with PNA from ER to medical floor --> card arrest , intubated --> to ICU , s/p transfuse 1 u Prbc 05/04- still on levo , failed SBT A/P Cardiac arrest 05/17- s/p ACLS x 2 rounds ( bradycardia then asystole) - intubated on medical floor 05/17 - follow commands as per RN - cards follow Acute resp failure - intubated post arrest 05/17 -AC 22 tv 500 40% peep 5 - decrease rr to 16 --failed SBT 05/21 -05/22 - will repeat today SBT again -- + secretions ETT- cont nebs Shock -septic most likely - OFF epi gtt , levo gtt to wean -- 0.4 -s/p transfusion total 3 u Prbc - stable - CORTISOL level 10 on 05/22 in shock state -possible mild adrenal insufficiency , consider steroids if can not wean off levo - follow RIGHT PNA ( with fever and leukocytosis) - NEG covid and flu -urine and blood cx pending -Sputum sputum PRESUMPTIVE MSSA 05/20 - CONT ABX -- cont cefepime ( CT chest 05/20- small RLL PNA , small effusions Anemia ( chronic ) - hb 6.7 -- transfused 3 u Prbc 1 - Hb stable now , no active bleeding now Hyponatremia 121 on admission ( baseline Na 130 , last Na 126 on 05/09) - follow closely , now 136 Elv trop - ECHO 06/17 EF 45 % RVSP 25 - as per cards Elev LFT - mild on admission , post arrest : with ischemic hepatitis - IMPROVING Metastatic melanoma ( lesion of the left upper chest wall - Tx with immunotherapy - CT reviewed - oncology consullted - will follow COPD, - oxygen 2-3 L home 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 Discussed with RN to reach out if any questions or concerns A total of 40 minutes of critical care time was devoted to this patient today, required to treat and/or prevent further deterioration of critical care condition ( as above ) Sepsis Event Evaluation Height, Weight, BMI Height: '" Weight: lbs. oz. kg; 29.77 BMI Method: Exam Exam Patient acknowledged, consented, and participated in this virtual visit which was conducted using real time audio/video Vital Signs Date Time Temp Pulse Resp B/P (MAP) Pulse Ox O2 Delivery O2 Flow Rate FiO2 05/23/22 09:00 81 23 94 Mechanical Ventilator 35.00 05/23/22 08:51 94 141/50 05/23/22 08:20 35 05/23/22 08:20 95 Mechanical Ventilator 35 05/23/22 08:00 62 22 94 Mechanical Ventilator 35.00 05/23/22 08:00 36.1 05/23/22 07:28 81 141/50 05/23/22 07:00 90 22 95 Mechanical Ventilator 35.00 05/23/22 07:00 90 05/23/22 06:48 101 162/54 05/23/22 06:32 101 32 94 35 05/23/22 06:00 79 22 96 Mechanical Ventilator 35.00 05/23/22 05:00 63 22 97 Mechanical Ventilator 35.00 05/23/22 04:49 72 130/76 05/23/22 04:00 35 05/23/22 04:00 58 22 97 Mechanical Ventilator 35.00 05/23/22 04:00 94 Mechanical Ventilator 35 12/21/22 03:29 36.7 05/23/22 03:28 72 130/76 05/23/22 03:00 72 22 93 Mechanical Ventilator 35.00 05/23/22 02:25 78 22 97 35 05/23/22 02:00 89 22 96 Mechanical Ventilator 35.00 05/23/22 01:00 74 05/23/22 01:00 58 22 96 Mechanical Ventilator 35.00 05/23/22 00:49 60 130/53 05/23/22 00:49 60 130/53 05/23/22 00:00 75 95 96 Mechanical Ventilator 35.00 05/23/22 00:00 35 05/22/22 23:59 94 Mechanical Ventilator 35 05/22/22 23:53 36.1 05/22/22 23:00 65 22 96 Mechanical Ventilator 35.00 05/22/22 22:16 60 130/53 05/22/22 22:08 60 22 97 35 05/22/22 22:00 65 22 96 Mechanical Ventilator 35.00 05/22/22 21:08 93 144/51 05/22/22 21:00 73 22 95 Mechanical Ventilator 35.00 05/22/22 20:00 93 Mechanical Ventilator 35 05/22/22 20:00 93 22 94 Mechanical Ventilator 35.00 05/22/22 20:00 35 05/22/22 19:27 37.8 Mechanical Ventilator 35.00 05/22/22 19:00 107 23 94 Mechanical Ventilator 35.00 05/22/22 19:00 90 05/22/22 18:30 83 22 94 35 05/22/22 18:22 76 103/49 05/22/22 18:16 76 103/49 05/22/22 18:00 82 22 94 Mechanical Ventilator 35.00 05/22/22 17:00 76 22 94 Mechanical Ventilator 35.00 05/22/22 16:11 94 Mechanical Ventilator 35 05/22/22 16:00 35 05/22/22 16:00 84 22 93 Mechanical Ventilator 35.00 05/22/22 15:51 37.2 05/22/22 15:00 85 22 93 Mechanical Ventilator 35.00 05/22/22 14:24 77 22 92 35 05/22/22 14:14 75 131/51 05/22/22 14:13 76 103/49 05/22/22 14:00 75 22 94 Mechanical Ventilator 35.00 05/22/22 13:01 75 05/22/22 13:00 69 22 94 Mechanical Ventilator 35.00 05/22/22 12:00 103 22 94 Mechanical Ventilator 35.00 05/22/22 12:00 95 Mechanical Ventilator 35 05/22/22 12:00 35 05/22/22 11:40 75 120/47 05/22/22 11:00 112 22 94 Mechanical Ventilator 35.00 05/22/22 10:31 68 120/47 I & O 05/23/22 07:00 Intake Total 4680 ml Output Total 2025 ml Balance 2655 ml Height & Weight Height: '" Weight: lbs. oz. kg; 29.77 BMI Method: General Appearance: No Apparent Distress (but he is intubated and sedated) HEENT: Other (currently intubated) Neck: Supple Respiratory: Crackles (in basis), Decreased Breath Sounds Cardiovascular: Regular Rate, Rhythm Capillary Refill: Greater Than 3 Seconds Gastrointestinal: soft, distended (slightly) Extremity: Normal Capillary Refill Neurologic/Psychiatric: Other (Noncommunicating due to intubation) Skin: Normal Color Results Lab Laboratory Tests 05/22/22 05:00 05/23/22 04:40 Assessment/Plan Assessment/Plan 1 JINA GREENFIELD MD May 23, 2022 10:08
[2022-05-23] MEDS: VANCOMYCIN 1 GM/NS 250 ML IVPB IV SCH ×4 (10:10→20:52)
[2022-05-23 10:34] VITALS: BP 171/62
[2022-05-23 14:45] VITALS: BP 227/79
--- NOTE | 2022-05-23 17:30 | Physician Query Clarification ---
Physician Query-General Query to Physician: The medical record reflects the following clinical scenario: The patient, in the setting of History/Risk factors, Hx of: High cholesterol, hypertension, IDDM, current Sepsis, Severe anemia, and Hypoxia Clinical Findings troponin I 0.194, then 0.900, Hgb 6.7, Treatment Cardiology consult, "Conservative management," 3 units PRBC's for anemia, Mechanical vent for Hypoxia Question: Do you agree with the impression of "type II myocardial infarction (probably secondary to severe hypoxemia and severe anemia)" per Dr. Shanique Camarena? 1. Yes; will document Type II Myocardial Infarction, present on admission in the Progress Notes 2. No; will continue current documentation in the Progress Notes 3. Other; will document explanation of clinical findings 4. Clinically undetermined; no explanation for clinical findings Please clarify and document your clinical opinion in the Progress Notes and Discharge Summary including the definitive and/or presumptive diagnosis, (suspected or probable), related to the above clinical findings. Please include clinical findings supporting your diagnosis. In responding to this query, please exercise your independent professional judgment. The purpose of this communication is to more accurately reflect the complexity of your patients condition. The fact that a question is asked does not imply that any particular answer is desired or expected. Thank you for timely response to this clarification. Heather Ross RN, MSN Clinical Corporate Sales Manager [phone] [email or web address] PHYSICIAN RESPONSE: Based on the clinical findings in the record, please respond to the query above on this document as an addendum. Physician Response: Physician Response Agree with hypoxemia and severe anemia with type 2 LA If you have questions please contact: Can Stacker: Ext: Thank you for your time and cooperation. Clinical Corporate Sales Manager/Can Stacker This is a permanent part of the medical record HEATHER ROSS May 23, 2022 17:30 STEPHANIE IRBY MD May 25, 2022 07:42
[2022-05-23 18:32] VITALS: BP 127/53
[2022-05-23 23:00] VITALS: BP 122/52
[2022-05-24 03:07] VITALS: BP 114/50
[2022-05-24] MEDS: RT-ALBUTEROL/IPRATROPIUM 3 ML (DUONEB) VIAL INH SCH ×4 (03:07→14:38)
[2022-05-24] MEDS: EPINEPHrine 1 MG INJECTION 4 MG in NS (IVPB) 246 ML IV SCH ×2 (03:28→09:34)
[2022-05-24 03:45] LABS: BASOPHILS % (AUTO) 0 % (0-10); EOSINOPHILS # (AUTO) 0.1 10^3/uL (0.0-0.3); EOSINOPHILS % (AUTO) 1 % (0-10); HEMATOCRIT 28 % (40-54); LYMPHOCYTES # (AUTO) 1.1 10^3/uL (1.0-4.0); LYMPHOCYTES % (AUTO) 10 % (12-44); MEAN CORPUSCULAR HEMOGLOBIN 23 pg (25-34); MEAN CORPUSCULAR HGB CONC 29 g/dL (32-36); MEAN CORPUSCULAR VOLUME 80 fL (80-99); MEAN PLATELET VOLUME 9.1 fL (9.0-12.2); MONOCYTES % (AUTO) 10 % (0-12); NEUTROPHILS # (AUTO) 7.9 10^3/uL (1.8-7.8); NEUTROPHILS % (AUTO) 76 % (42-75); PLATELET COUNT 299 10^3/uL (130-400); WHITE BLOOD COUNT 10.4 10^3/uL (4.3-11.0)
[2022-05-24 03:46] LABS: ABG BASE EXCESS 4.5 MMOL/L (-2.5-2.5); ABG OXYGEN SATURATION 95 % (94-100); ABG PCO2 64 MMHG (35-45); ABG PO2 78 MMHG (79-93); ABG TCO2 32.3 MMOL/L (21.0-31.0)
[2022-05-24 03:47] LABS: ALLENS TEST ART LINE; INSPIRED O2 40%; PATIENT TEMP 37.5; VENTILATOR YES
[2022-05-24 03:58] LABS: ALBUMIN 2.3 GM/DL (3.2-4.5); POTASSIUM 4.8 MMOL/L (3.6-5.0)
[2022-05-24 03:59] LABS: CALCIUM 7.3 MG/DL (8.5-10.1)
[2022-05-24 04:00] LABS: TOTAL PROTEIN 5.6 GM/DL (6.4-8.2)
[2022-05-24 04:02] LABS: BILIRUBIN,TOTAL 0.4 MG/DL (0.1-1.0)
[2022-05-24 04:03] LABS: PHOSPHORUS 1.8 MG/DL (2.3-4.7)
[2022-05-24 04:04] LABS: CREATININE SERUM 0.61 MG/DL (0.60-1.30)
[2022-05-24 04:07] LABS: MAGNESIUM 2.1 MG/DL (1.6-2.4)
[2022-05-24] MEDS: KCL 20 MEQ TAB (K-DUR) PO SCH (05:16)
[2022-05-24] MEDS: MAGNESIUM 1 GM/100 ML IVPB 100 ML IV SCH (05:16)
[2022-05-24] MEDS: POTASSIUM CL 10MEQ/50ML IVPB 50 ML IV SCH (05:16)
[2022-05-24] MEDS: inSUlin ASPART (NovoLOG) 1 UNIT/0.01 ML (CHARGE PER UNIT) SC SCH ×2 (05:17→12:00)
[2022-05-24] MEDS: NS IV 1000 ML 1,000 ML IV SCH (06:35)
[2022-05-24] MEDS: PROPOFOL DRIP (ICU) 100 ML IV SCH ×2 (06:35→14:12)
--- NOTE | 2022-05-24 06:46 | Occ Therapy Progress Note ---
Therapy Progress Note Pt currently intubated. OT to monitor pt's status then will initiate treatment when pt is medically stable and able to actively participate in skilled therapy. JORDEN CURRY May 24, 2022 06:46
[2022-05-24 06:49] VITALS: BP 155/67
[2022-05-24] MEDS: fentaNYL INJ 100 MCG/2 ML AMP IVP PRN ×3 (07:48→16:40)
--- NOTE | 2022-05-24 07:57 | Physical Therapy Progress Note ---
Therapy Progress Note Patient is sedated and intubated per report. PT will monitor patient status and initiate treatment when patient is deemed medically stable and able to actively participate with skilled therapy. GRAICELA FERRARI PT May 24, 2022 07:57
--- NOTE | 2022-05-24 08:13 | Cardiology Progress Note ---
Subjective Date Seen by Provider: May 24, 2022 Time Seen by Provider: 08:12 Subjective/Events-last exam Patient is intubated, respiratory failure Review of Systems General: Other (Unable to provide review of system) Objective-Cardiology Exam Last Set of Vital Signs Vital Signs 05/24/22 05/24/22 05/24/22 05/24/22 05/24/22 06:00 06:35 06:49 07:00 07:42 Temp 37.2 Pulse 103 Resp 16 B/P (MAP) 114/50 Pulse Ox 98 O2 Delivery Mechanical Ventilator O2 Flow Rate 40.00 FiO2 40 I&O Intake and Output 05/24/22 00:00 Intake Total 2880 ml Output Total 1900 ml Balance 980 ml Intake Oral 0 ml IV Total 1200 ml Tube Feeding 1080 ml Other 600 ml Output Urine Total 1900 ml General: Other (Sedated and intubated) HEENT: Atraumatic Neck: Supple Lungs: Normal Air Movement, Other (Bilateral rhonchi) Heart: Regular Rate, Normal S1, Normal S2 Abdomen: Normal Bowel Sounds Extremities: No Edema, Other Skin: No Rashes Neuro: Other (Sedated and intubated) Psych/Mental Status: Other (Sedated and intubated) Results Lab Laboratory Tests 05/24/22 03:30 A/P-Cardiology Admission Diagnosis Acute respiratory failure Severe hypoxemia Septic shock COPD Assessment/Plan Acute respiratory failure, ventilator dependent, progressed with pulmonary infiltrate. Receiving cefepime Ventilator dependent, failed weaning attempt. Managed by eICU and medical team Consider transfer to a tertiary care center Status post cardiac arrest secondary to bradycardia then asystole, most probably secondary to hypoxemia. No sign of acute myocardial infarction on his EKG Elevated troponin, type II myocardial infarction probably secondary to severe hypoxemia and severe anemia. Conservative management, no changes are recommended Metastatic melanoma, oncology were consulted, managed by medical team Sepsis with septic shock. Blood pressure is improving, currently on Levophed. Failed weaning off Levophed. Continue with IV fluid and attempt to wean him off pressors Hyponatremia, improving slowly. 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 2D echo was done at bedside showing normal LV size with mild hypokinesia, ejection fraction 45 to 50%. Pulmonary artery pressure appears to be 25 to 30 mmHg. No signs of cardiogenic shocks. Lactic acidosis, persistent secondary to sepsis, worsening postcode Better today Acute shock liver, elevated liver enzymes after cardiac arrest. Acute renal failure, probably secondary to sepsis and hypoxemia Electrolytes imbalance. Severe anemia, continue to monitor H&H ANH GALEANO MD May 24, 2022 08:13
--- NOTE | 2022-05-24 08:35 | Progress Note ---
Subjective Date Seen by a Provider: May 24, 2022 Time Seen by a Provider: 06:50 Subjective/Events-last exam Failed extubation yesterday. No fever. Objective Exam Vital Signs Date Time Temp Pulse Resp B/P (MAP) Pulse Ox O2 Delivery O2 Flow Rate FiO2 05/24/22 08:10 40 05/24/22 08:10 91 Mechanical Ventilator 40 05/24/22 08:00 89 16 90 Mechanical Ventilator 40.00 05/24/22 07:42 37.2 05/24/22 07:00 101 17 93 Mechanical Ventilator 40.00 05/24/22 07:00 103 05/24/22 06:49 94 16 98 40 05/24/22 06:35 94 114/50 05/24/22 06:00 94 19 92 Mechanical Ventilator 40.00 05/24/22 05:00 87 18 94 Mechanical Ventilator 40.00 05/24/22 04:00 82 23 95 Mechanical Ventilator 40.00 05/24/22 03:58 95 Mechanical Ventilator 40 05/24/22 03:57 40 05/24/22 03:33 37.3 05/24/22 03:07 79 17 97 40 05/24/22 03:00 79 15 95 Mechanical Ventilator 40.00 05/24/22 02:00 84 23 94 Mechanical Ventilator 40.00 05/24/22 01:01 87 05/24/22 01:00 100 19 95 Mechanical Ventilator 40.00 05/24/22 00:00 50 05/24/22 00:00 93 25 95 Mechanical Ventilator 40.00 05/23/22 23:59 89 122/52 05/23/22 23:59 95 Mechanical Ventilator 35 05/23/22 23:38 37.7 05/23/22 23:00 89 17 97 40 05/23/22 23:00 89 17 95 Mechanical Ventilator 40.00 05/23/22 22:00 102 15 95 Mechanical Ventilator 40.00 05/23/22 21:00 96 30 94 Mechanical Ventilator 40.00 05/23/22 20:28 37.3 05/23/22 20:00 104 21 94 Mechanical Ventilator 40.00 05/23/22 20:00 94 Mechanical Ventilator 35 05/23/22 20:00 50 05/23/22 19:25 106 05/23/22 19:19 Mechanical Ventilator 40.00 05/23/22 19:00 110 18 93 Mechanical Ventilator 50.00 05/23/22 18:45 108 153/62 05/23/22 18:32 106 16 98 35 05/23/22 18:00 109 19 96 Mechanical Ventilator 50.00 05/23/22 17:00 111 26 96 Mechanical Ventilator 50.00 05/23/22 16:20 95 Mechanical Ventilator 50 05/23/22 16:20 50 05/23/22 16:00 37.1 05/23/22 16:00 110 19 96 Mechanical Ventilator 50.00 05/23/22 15:41 Mechanical Ventilator 50.00 05/23/22 15:15 50 05/23/22 15:00 113 28 94 Mechanical Ventilator 35.00 05/23/22 14:52 110 227/79 05/23/22 14:47 116 26 96 35 05/23/22 14:45 109 35 87 35 05/23/22 14:00 95 16 93 Mechanical Ventilator 35.00 05/23/22 13:23 84 05/23/22 13:00 84 18 92 Mechanical Ventilator 35.00 05/23/22 12:00 95 Mechanical Ventilator 35 05/23/22 12:00 35 05/23/22 12:00 86 18 92 Mechanical Ventilator 35.00 05/23/22 11:00 102 25 92 Mechanical Ventilator 35.00 05/23/22 10:52 96 171/62 05/23/22 10:48 102 171/62 05/23/22 10:34 96 18 93 35 05/23/22 10:00 70 22 95 Mechanical Ventilator 35.00 05/23/22 09:00 81 23 94 Mechanical Ventilator 35.00 05/23/22 08:51 94 141/50 I & O 05/24/22 07:00 Intake Total 1680 ml Output Total 1650 ml Balance 30 ml Capillary Refill : Greater Than 3 Seconds General Appearance: No Apparent Distress (but sedated) Results Lab Laboratory Tests 05/23/22 12:05: Glucometer 194H 05/23/22 17:33: Glucometer 179H 05/23/22 23:26: Glucometer 139H 05/24/22 03:30: White Blood Count 10.4, Red Blood Count 3.49L, Hemoglobin 8.0L, Hematocrit 28L, Mean Corpuscular Volume 80, Mean Corpuscular Hemoglobin 23L, Mean Corpuscular Hemoglobin Concent 29L, Red Cell Distribution Width 20.6H, Platelet Count 299, Mean Platelet Volume 9.1, Immature Granulocyte % (Auto) 3, Neutrophils (%) (Auto) 76H, Lymphocytes (%) (Auto) 10L, Monocytes (%) (Auto) 10, Eosinophils (%) (Auto) 1, Basophils (%) (Auto) 0, Neutrophils # (Auto) 7.9H, Lymphocytes # (Auto) 1.1, Monocytes # (Auto) 1.0, Eosinophils # (Auto) 0.1, Basophils # (Auto) 0.0, Immature Granulocyte # (Auto) 0.3H, Blood Gas Puncture Site KAT, Blood Gas Patient Temperature 37.5, Arterial Blood pH 7.30*L, Arterial Blood Partial Pressure CO2 64H, Arterial Blood Partial Pressure O2 78L, Arterial Blood HCO3 30H, Arterial Blood Total CO2 32.3H, Arterial Blood Oxygen Saturation 95, Arterial Blood Base Excess 4.5H, Chuck Test ART LINE, Blood Gas Ventilator Setting YES, Blood Gas Inspired Oxygen 40%, Sodium Level 137, Potassium Level 4.8, Chloride Level 104, Carbon Dioxide Level 23, Anion Gap 10, Blood Urea Nitrogen 18, Creatinine 0.61, Estimat Glomerular Filtration Rate 100, BUN/Creatinine Ratio 30, Glucose Level 157H, Calcium Level 7.3L, Corrected Calcium 8.7, Phosphorus Level 1.8L, Magnesium Level 2.1, Total Bilirubin 0.4, Aspartate Amino Transf (AST/SGOT) 39H, Alanine Aminotransferase (ALT/SGPT) 72H, Alkaline Phosphatase 61, Total Protein 5.6L, Albumin 2.3L Microbiology 05/20/22 Gram Stain - Final, Complete 05/20/22 Sputum Culture - Final, Complete Staphylococcus aureus 05/20/22 Blood Culture - Preliminary, Resulted No growth 05/20/22 Urine Culture - Final, Complete NO GROWTH Assessment/Plan Assessment/Plan Assess & Plan/Chief Complaint 1. Sepsis--CODE BLUE on floor on day of admission -He was started on cefepime in the emergency department -IV fluids continue -eICU consultation 05/18 -White blood cell count noted to be elevated but a lot of this may have been stress from the code as well -He continues on IV fluids 05/22 -blood cultures revealed staph -IV fluids at 75 cc per hour 05/24 -off all vasopressors 2. Pneumonia -Cefepime 05/18 -day #2 cefepime 1000 mg IV every 6 hours 05/21/2022 -Day #5 cefepime 05/22 -day #6 cefepime 05/23 -day #7 cefepime. Vancomycin added over the weekend -currently intubated but SBT today. Parameters are 35% oxygen and 5% PEEP 05/24 -day #8 of cefepime 3. Hyponatremia -We will follow sodium in a.m. since he has now been receiving IV fluids 05/18 -Hyponatremic continues this may have been long-standing 4. Anemia -Plan on transfusion with 2 units and recheck CBC 05/18 -Patient received only 1 unit last evening -Appreciate all of the eICU help 5. Elevated troponin -Cardiology consultation 05/18 -appreciate Dr. Driscoll consultation and input 6. Malignant melanoma -Recently diagnosed 05/21 -CT of the chest yesterday revealed mass to the right adrenal gland. I spoke with his son today regarding the findings. Will consult oncology 05/22 -Oncology consultation today 05/23 -Dr. Parikh will restart patient on Keytruda after he is outpatient 7. Diabetes mellitusknown 05/18 -he is currently on sliding scale insulin 8. Hyperlipidemia 9. History of hypertension currently hypotensive however 05/18 -Blood pressure overall is improved as of this morning Clinical Quality Measures Admission Status Admission Dx 1. Sepsis 2. Pneumonia 3. Hyponatremia 4. Anemia 5. Malignant melanoma 6. Diabetes mellitusknown 7. Hyperlipidemia 8. History of hypertension currently hypotensive however STEPHANIE IRBY MD May 24, 2022 08:35
--- NOTE | 2022-05-24 08:57 | Tele-ICU Progress Note ---
Subjective Date Seen by a Provider: May 24, 2022 Time Seen by a Provider: 08:57 Subjective/Events-last exam (Tele-ICU Physician , Progress Note ) Service provided via interactive audio and video telecommunications E-CARE system to a patient admitted to ICU bed in [facility]. Available chart/ vitals / labs / Images reviewed Video assessment done using teleICU camera, rest of exam as per RN Discussed with RN Events overnight : Afebrile hemodynamically stable , STILL ON LEVO Respiratory - I/O =pos Drips: ns 75 Pressors- levo OFF VENT SETTINGS and ABG reviewed Sedation: RASS discussed with RN , propofol 30 , reported to follow commands off sedation SBTreviewed possible contraindications including Cardiovascular Stability /Sedation Score / FI02/PEEP / ABG / CXR/ secretions Consultants: anshu Hospital course: 05/17 -admitted with PNA from ER to medical floor --> card arrest , intubated --> to ICU , s/p transfuse 1 u Prbc 05/23- still on levo , failed SBT 05/24- 40% A/P Cardiac arrest 05/17- s/p ACLS x 2 rounds ( bradycardia then asystole) - intubated on medical floor 05/17 - follow commands as per RN - cards follow Acute resp failure - intubated post arrest 05/17 -AC 22 tv 500 40% peep 5 - decrease rr to 16 --failed SBT 05/21 -05/22 - will repeat today SBT again AFTER DIURESIS -- + secretions ETT- cont nebs - IMPROVED - Shock -septic most likely- RESOLVED - OFpressors 05/23 -s/p transfusion total 3 u Prbc - stable - CORTISOL level 10 on 05/22 RIGHT PNA ( with fever and leukocytosis) - NEG covid and flu -urine and blood cx pending -Sputum sputum MSSA 05/20 PANSENSITIVE - CONT ABX -- cont cefepime ( CT chest 05/20- small RLL PNA , small effusions Anemia ( chronic ) - hb 6.7 -- transfused 3 u Prbc 1 - Hb stable now , no active bleeding now Hyponatremia 121 on admission ( baseline Na 130 , last Na 126 on 05/09) - follow closely , now 137. 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 Discussed with RN to reach out if any questions or concerns A total of 40 minutes of critical care time was devoted to this patient today, required to treat and/or prevent further deterioration of critical care condition ( as above ) Sepsis Event Evaluation Height, Weight, BMI Height: '" Weight: lbs. oz. kg; 29.77 BMI Method: Exam Exam Patient acknowledged, consented, and participated in this virtual visit which was conducted using real time audio/video Vital Signs Date Time Temp Pulse Resp B/P (MAP) Pulse Ox O2 Delivery O2 Flow Rate FiO2 05/24/22 08:10 40 05/24/22 08:10 91 Mechanical Ventilator 40 05/24/22 08:00 89 16 90 Mechanical Ventilator 40.00 05/24/22 07:42 37.2 05/24/22 07:00 101 17 93 Mechanical Ventilator 40.00 05/24/22 07:00 103 05/24/22 06:49 94 16 98 40 05/24/22 06:35 94 114/50 05/24/22 06:00 94 19 92 Mechanical Ventilator 40.00 05/24/22 05:00 87 18 94 Mechanical Ventilator 40.00 05/24/22 04:00 82 23 95 Mechanical Ventilator 40.00 05/24/22 03:58 95 Mechanical Ventilator 40 05/24/22 03:57 40 05/24/22 03:33 37.3 05/24/22 03:07 79 17 97 40 05/24/22 03:00 79 15 95 Mechanical Ventilator 40.00 05/24/22 02:00 84 23 94 Mechanical Ventilator 40.00 05/24/22 01:01 87 05/24/22 01:00 100 19 95 Mechanical Ventilator 40.00 05/24/22 00:00 50 05/24/22 00:00 93 25 95 Mechanical Ventilator 40.00 05/23/22 23:59 89 122/52 05/23/22 23:59 95 Mechanical Ventilator 35 05/23/22 23:38 37.7 05/23/22 23:00 89 17 97 40 05/23/22 23:00 89 17 95 Mechanical Ventilator 40.00 05/23/22 22:00 102 15 95 Mechanical Ventilator 40.00 05/23/22 21:00 96 30 94 Mechanical Ventilator 40.00 05/23/22 20:28 37.3 05/23/22 20:00 104 21 94 Mechanical Ventilator 40.00 05/23/22 20:00 94 Mechanical Ventilator 35 05/23/22 20:00 50 05/23/22 19:25 106 05/23/22 19:19 Mechanical Ventilator 40.00 05/23/22 19:00 110 18 93 Mechanical Ventilator 50.00 05/23/22 18:45 108 153/62 05/23/22 18:32 106 16 98 35 05/23/22 18:00 109 19 96 Mechanical Ventilator 50.00 05/23/22 17:00 111 26 96 Mechanical Ventilator 50.00 05/23/22 16:20 95 Mechanical Ventilator 50 05/23/22 16:20 50 05/23/22 16:00 37.1 05/23/22 16:00 110 19 96 Mechanical Ventilator 50.00 05/23/22 15:41 Mechanical Ventilator 50.00 05/23/22 15:15 50 05/23/22 15:00 113 28 94 Mechanical Ventilator 35.00 05/23/22 14:52 110 227/79 05/23/22 14:47 116 26 96 35 05/23/22 14:45 109 35 87 35 05/23/22 14:00 95 16 93 Mechanical Ventilator 35.00 05/23/22 13:23 84 05/23/22 13:00 84 18 92 Mechanical Ventilator 35.00 05/23/22 12:00 95 Mechanical Ventilator 35 05/23/22 12:00 35 05/23/22 12:00 86 18 92 Mechanical Ventilator 35.00 05/23/22 11:00 102 25 92 Mechanical Ventilator 35.00 05/23/22 10:52 96 171/62 05/23/22 10:48 102 171/62 05/23/22 10:34 96 18 93 35 05/23/22 10:00 70 22 95 Mechanical Ventilator 35.00 05/23/22 09:00 81 23 94 Mechanical Ventilator 35.00 I & O 05/24/22 07:00 Intake Total 1680 ml Output Total 1650 ml Balance 30 ml Height & Weight Height: '" Weight: lbs. oz. kg; 29.77 BMI Method: General Appearance: No Apparent Distress (but sedated) HEENT: Other (currently intubated) Neck: Supple Respiratory: Crackles (in basis), Decreased Breath Sounds Cardiovascular: Regular Rate, Rhythm Capillary Refill: Greater Than 3 Seconds Gastrointestinal: soft, distended (slightly) Extremity: Normal Capillary Refill Neurologic/Psychiatric: Other (Noncommunicating due to intubation) Skin: Normal Color Results Lab Laboratory Tests 05/23/22 04:40 05/24/22 03:30 Assessment/Plan Assessment/Plan 1 JINA GREENFIELD MD May 24, 2022 08:57
[2022-05-24] MEDS ORDERED: FUROSEMIDE 40 MG/4 ML INJ (LASIX) IVP SCH (09:00)
[2022-05-24] MEDS: PANTOPRAZOLE 40 MG (PROTONIX) VIAL IV SCH (09:27)
[2022-05-24] MEDS: ENOXAPARIN 40 MG/0.4 ML (LOVENOX) SYR SC SCH (09:27)
[2022-05-24] MEDS: VANCOMYCIN 1 GM/NS 250 ML IVPB IV SCH ×2 (09:27)
[2022-05-24] MEDS: MICONAZOLE 2% POWDER (DESENEX AF) 90 GM TOP SCH (09:28)
[2022-05-24] MEDS: NOREPINEPHRINE 8 MG/250 ML 250 ML IV SCH (09:34)
[2022-05-24 10:11] VITALS: BP 143/57
[2022-05-24 14:38] VITALS: BP 143/60
[2022-05-24] MEDS ORDERED: BISACODYL 10 MG SUPP (DULCOLAX) PR PRN (16:00)
[2022-05-24] MEDS ORDERED: GLYCOPYRROLATE 0.2 MG/ML (ROBINUL) 2 ML VIAL IV PRN ×2 (16:00→16:30)
[2022-05-24] MEDS ORDERED: ARTIFICAL TEARS 0.4 ML UNIT DOSE (REFRESH PLUS) OU PRN ×2 (16:00→16:30)
[2022-05-24] MEDS ORDERED: BUTORPHANOL INJ 2 MG/ML (STADOL) VIAL IV PRN ×2 (16:00)
[2022-05-24] MEDS ORDERED: LORazepam INJ 2 MG/ML (ATIVAN) VIAL IVP PRN ×2 (16:00→16:30)
[2022-05-24] MEDS ORDERED: RT-ALBUTEROL/IPRATROPIUM 3 ML (DUONEB) VIAL INH PRN ×2 (16:00→16:30)
[2022-05-24] MEDS ORDERED: ACETAMINOPHEN 650 MG SUPP (TYLENOL) PR PRN ×2 (16:00→16:30)
[2022-05-24] MEDS ORDERED: ONDANSETRON 4 MG/2 ML (SDV) Z0FRAN IVP PRN ×2 (16:00→16:30)
[2022-05-24] MEDS ORDERED: LORazepam 1 MG (ATIVAN) TAB SL PRN (16:00)
[2022-05-24] MEDS ORDERED: PROMETHAZINE INJ 25 MG/ML (PHENERGAN) AMP IVP PRN (16:00)
[2022-05-24] MEDS ORDERED: SALIVA SUBSTITUTE 60 ML SPRAY(MOUTHKOTE) MM PRN (16:30)
[2022-05-24] MEDS ORDERED: fentaNYL INJ 100 MCG/2 ML AMP IVP PRN (16:30)
== END 2022-05-24 18:09 | disposition expired | DRG 870 ==
LOC: EDUNIT# 10:49 → ER 10:50 → 4TH 14:16 → ICU 17:50
PROVIDERS: ADMIT Family Medicine; ATTEND Family Medicine
PROC: 5A1955Z Respiratory Ventilation, Greater than 96 Consecutive Hours (ICD-10-PCS; principal; 2022-05-17)
PROC: 0BH17EZ Insertion of Endotracheal Airway into Trachea, Via Natural or Artificial Opening (ICD-10-PCS; 2022-05-17)
PROC: 5A12012 Performance of Cardiac Output, Single, Manual (ICD-10-PCS; 2022-05-17)
PROC: 02HV33Z Insertion of Infusion Device into Superior Vena Cava, Percutaneous Approach (ICD-10-PCS; 2022-05-17)
PROC: 03HY32Z Insertion of Monitoring Device into Upper Artery, Percutaneous Approach (ICD-10-PCS; 2022-05-17)
DX: A41.9 Sepsis, unspecified organism (principal); I21.A1 Myocardial infarction type 2; J18.9 Pneumonia, unspecified organism; J96.01 Acute respiratory failure with hypoxia; R65.21 Severe sepsis with septic shock; K72.00 Acute and subacute hepatic failure without coma; S22.43XA Multiple fractures of ribs, bilateral, initial encounter for closed fracture; E87.1 Hypo-osmolality and hyponatremia; J44.0 Chronic obstructive pulmonary disease with (acute) lower respiratory infection; C79.2 Secondary malignant neoplasm of skin; E87.20 Acidosis, unspecified; N17.9 Acute kidney failure, unspecified; Z99.11 Dependence on respirator [ventilator] status; Z66 Do not resuscitate; Z51.5 Encounter for palliative care; E78.00 Pure hypercholesterolemia, unspecified; G47.33 Obstructive sleep apnea (adult) (pediatric); M19.90 Unspecified osteoarthritis, unspecified site; I10 Essential (primary) hypertension; Z20.822 Contact with and (suspected) exposure to COVID-19; D64.9 Anemia, unspecified; I46.9 Cardiac arrest, cause unspecified; E11.9 Type 2 diabetes mellitus without complications; D63.0 Anemia in neoplastic disease; I87.2 Venous insufficiency (chronic) (peripheral); Z85.3 Personal history of malignant neoplasm of breast; Z79.82 Long term (current) use of aspirin; Z79.84 Long term (current) use of oral hypoglycemic drugs; Z79.899 Other long term (current) drug therapy; Z87.891 Personal history of nicotine dependence
CPT/HCPCS: 36415; 70450; 71045; 71275; 80048; 80053; 80202; 81000; 82533; 82805; 82947; 83605; 83735; 84100; 84478; 84484; 85007; 85014; 85018; 85025; 85027; 85610; 85730; 86850; 86900; 86901; 86920; 87040; 87070; 87077; 87088; 87186; 87205; 87636; 93005; 93306; 94002; 94003; 94640; 94799; 96361; 96365